=== PATIENT | male | born 1950 | race Caucasian/White ===

== ENCOUNTER 2019-02-21 16:09 | Inpatient (IN) ==
[2019-02-21] MEDS ORDERED: Piperacillin/Tazobactam 3.375 GM in Water for inj. (sterile) 20 ML 20 ML IVP ONE (16:18)
[2019-02-21] MEDS ORDERED: 0.9 % Sodium Chloride 1,000 ML IVC ONE (16:18)
[2019-02-21 16:48] LABS: Basophils # 0.1 K/mcL (0.0-0.2); Basophils % 0.4 %; Eosinophils % 0.1 %; Hematocrit 36.5 % (37.5-50.1); Hemoglobin 12.1 g/dL (12.9-16.9); Immature Granulocytes % 0.7 % (0-4); Lymphocytes # 0.9 K/mcL (0.6-4.6); Lymphocytes % 5.5 %; Mean Corpuscular HGB Conc 33.2 g/dL (31.6-35.5); Mean Corpuscular Hemoglobin 30.1 pg (28.0-33.3); Mean Corpuscular Volume 90.8 fL (83.0-100.0); Mean Platelet Volume 10.3 fL (9.4-12.4); Monocytes # 1.1 K/mcL (0.0-1.3); Monocytes % 6.3 %; Neutrophils # 14.7 K/mcL (1.6-8.9); Platelet Count 203 K/mcL (140-400); Red Blood Count 4.02 M/mcL (4.19-5.50); Red Cell Distribution Width 13.2 % (11.5-14.5)
[2019-02-21 16:55] LABS: INR 1.1; Prothrombin Time 12.8 Seconds (9.4-12.1)
[2019-02-21 16:58] LABS: Activated Partial Thrombo Time 27.4 Seconds (26.0-36.0)
[2019-02-21 17:26] LABS: Potassium 3.7 mEq/L (3.5-5.1)
[2019-02-21 17:27] LABS: Albumin 4.5 g/dL (3.5-5.7); Albumin/Globulin Ratio 1.1 (1.1-2.2); Bilirubin,Direct 0.1 mg/dL (0.0-0.2); Bilirubin,Indirect 0.4 mg/dL (0.0-1.2); Bilirubin,Total 0.5 mg/dL (0.3-1.0); Calcium 10.1 mg/dL (8.6-10.3); Globulin 4.2 g/dL (2.4-3.5); Magnesium 1.9 mg/dL (1.6-2.6); Phosphorous 2.6 mg/dL (2.7-4.5); Total Protein 8.7 g/dL (6.4-8.9); Troponin I 0.03 ng/mL (< 0.04)
[2019-02-21] MEDS ORDERED: *HR* FentaNYL (PF) 100 MCG/2 ML VIAL IVP ONE (18:26)
--- NOTE | 2019-02-21 18:48 | Emergency Department Note ---
Disposition Clinical Impression: Abdominal pain Qualifiers: Abdominal location: right lower quadrant Qualified Code(s): R10.31 - Right lower quadrant pain Acute appendicitis Qualifiers: Acute appendicitis type: unspecified acute appendicitis type Qualified Code(s): K35.80 - Unspecified acute appendicitis Disposition: Admitted As Inpatient Condition: Good Referrals: NONE,PCP [Primary Care Provider] - Forms: ED Satisfaction Letter, Work/School Release Time of Disposition: 19:01 Abdominal Pain HPI - General Chief Complaint: ED Abdominal Pain Stated Complaint: RUQ pain Time Seen by Provider: 02/21/19 16:17 Source: patient Mode of arrival: ambulatory Limitations: no limitations Nursing Notes Reviewed: Yes Vital Signs Reviewed: Yes - History of Present Illness HPI Narrative: Patient presents emergency room with complaint of abdominal pain that started at 24 hours ago. And feeling worse and worse over the last several days. No other symptoms or complaints. Patient just did not feel any better today and decided to come in the emergency room for evaluation. Pt Subjective Complaint: abdominal pain Onset (ago): day(s) Consistency: constant Location: RLQ Pain Severity: none Pain Scale: 1 Quality: cramping Radiation: none Migration to: no migration Improves with: nothing Worsens with: movement Associated symptoms: Reports: denies other symptoms Treatments prior to arrival: none - Related Data Allergies Allergy/AdvReac Type Severity Reaction Status Date / Time No Known Allergies Allergy Verified 02/21/19 18:30 All systems ED: reviewed and negative except as stated. Review of Systems: As Per HPI Constitutional: Reports: chills. Denies: fever ENT ED: Denies: congestion Cardiovascular: Denies: chest pain, palpitations, dyspnea on exertion, orthopnea Respiratory: Denies: cough, dyspnea, wheezes Gastrointestinal: Reports: abdominal pain. Denies: nausea, vomiting, diarrhea, constipation Genitourinary: Denies: urgency, dysuria, frequency Musculoskeletal: Denies: back pain, neck pain Integumentary: Denies: rash Neurological: Denies: headache Abdominal Pain PMH - Past Medical History Medical history: Reports: dialysis, renal disease Psychiatric history: Reports: no psych history - Social History Smoking status: Never smoker Alcohol use: Reports: none Drug use: Reports: none Physical Exam - General Limitations: no limitations General appearance: alert - Head Head exam: atraumatic, normocephalic, normal inspection - ENT ENT exam: normal exam, normal oropharynx, mucous membranes moist - Neck Neck exam: Present: normal inspection, full ROM, trachea midline. Absent: tenderness - Chest Chest inspection: Present: normal inspection, symmetric chest wall rise. Absent: tenderness - Respiratory Respiratory exam: Present: normal lung sounds bilaterally. Absent: respiratory distress, accessory muscle use - Cardiovascular Cardiovascular exam: Present: normal rhythm, tachycardia, normal heart sounds - Abdominal Exam Abdominal exam: Present: soft, tenderness, guarding, normal bowel sounds, heel tap sign, tenderness at McBurney's Point. Absent: distention, rebound, rigidity, Johnson's sign, Rovsing's sign - Extremities Exam Extremities exam: Present: normal inspection, full ROM, normal capillary refill. Absent: tenderness - Neurological Exam Neurological exam: Present: alert, oriented X3, CN II-XII intact, normal gait - Skin Skin exam: Present: warm, dry, intact, normal color Course Course Narrative: Patient seen and examined the time of arrival. See history of present illness. 5-year-old male presents emergency room for evaluation of abdominal pain. Patient is brought into the triage process and was noted to have elevated heart rate. He also felt like his had chills at home. He denied any chest pain or shortness of breath. He has not had any nausea or vomiting. He had lower abdominal discomfort and pain. He is currently in dialysis on every Saturday under the care of Dr. Roche. He has not had any falls trauma or injury. He is been taking all his home medications as they are prescr ibed. Head is atraumatic. Pupils are equal and reactive. Extracted muscles are intact. Oral mucosa is patent. Trachea is midline. Lungs are clear. Heart is regular but tachycardic. Abdomen is soft slightly distended with significant tenderness noted in the right lower quadrant. He does not have any diffuse peritoneal symptoms this time or rigidity. Bowel sounds are present. examination deferred at this time. Extremities otherwise normal with no signs of pitting edema or swelling. Patient is concerning for abdominal related etiologies including appendicitis or gallbladder related disease because the patient has right-sided pain that is isolated in that area. He has no specific history of renal stones or colic. Chest x-ray EKG CBC chemistry liver function testing and lipase along with blood cultures and lactic acid will be ordered. CT managing of the abdomen and urinalysis will also be collected. Disposition to be determined once full workup and treatment course are resulted. First dose of Zosyn will be given here covering for intra-abdominal pathology. Vital signs otherwise stable. Disposition pending the - Reevaluation(s) Reevaluation #1: CT imaging of the abdomen confirms what appears to be gallbladder wall thickeni ng and sludge along with acute appendicitis with possible perforation and phlegmon. Patient does have a significantly dilated bladder. No other issues at this time. The on-call acute care surgeon Dr. Garner and I reviewed the case. He agreed this is most likely phlegmon or require antibiotic regimen first called down the abdomen and repeat evaluation. Consult for his services placed. The on-call hospitalist Dr. Slaughter Time: 18:57 Vital Signs Temperature 98.6 F 02/21/19 16:13 Pulse Rate 125 02/21/19 16:13 Respiratory Rate 18 02/21/19 16:13 Blood Pressure 152/78 02/21/19 16:13 O2 Sat by Pulse Oximetry 97 02/21/19 16:13 Temperature 98.6 F 02/21/19 16:13 Pulse Rate 125 02/21/19 18:32 Respiratory Rate 20 02/21/19 18:32 Blood Pressure 166/92 02/21/19 18:32 O2 Sat by Pulse Oximetry 93 02/21/19 18:32 Oxygen Delivery Oxygen Delivery Room Air Abdominal Pain - MDM Narrative Medical decision making narrative: Acute appendicitis, abdominal pain, phlegmon - Medical Records Medical records reviewed: Yes I reviewed the patient's medical records. - Lab Data Lab results reviewed: Yes I reviewed the patient's lab results. Result diagrams: 02/21/19 16:27 02/21/19 16:27 Lab Results 02/21/19 02/21/19 02/21/19 Range/Units 16:27 16:27 16:27 WBC 16.9 H (4.3-11.1) K/mcL RBC 4.02 L (4.19-5.50) M/mcL Hgb 12.1 L (12.9-16.9) g/dL Hct 36.5 L (37.5-50.1) % MCV 90.8 (83.0-100.0) fL MCH 30.1 (28.0-33.3) pg MCHC 33.2 (31.6-35.5) g/dL RDW 13.2 (11.5-14.5) % Plt Count 203 (140-400) K/mcL MPV 10.3 (9.4-12.4) fL Immature Gran % 0.7 (0-4) % Seg Neutrophils % 87.0 % Lymphocytes % 5.5 % Monocytes % 6.3 % Eosinophils % 0.1 % Basophils % 0.4 % Neutrophils # 14.7 H (1.6-8.9) K/mcL Lymphocytes # 0.9 (0.6-4.6) K/mcL Monocytes # 1.1 (0.0-1.3) K/mcL Eosinophils # 0.0 (0.0-0.6) K/mcL Basophils # 0.1 (0.0-0.2) K/mcL PT 12.8 H (9.4-12.1) Seconds INR 1.1 APTT 27.4 (26.0-36.0) Seconds Sodium 134 L (136-145) mEq/L Potassium 3.7 (3.5-5.1) mEq/L Chloride 93 L (98-107) mEq/L Carbon Dioxide 29 (23-29) mEq/L BUN 33 H (8-23) mg/dL Creatinine 8.61 H (0.70-1.30) mg/dL Est GFR ( Amer) 7 L (> 60) Est GFR (Non-Af Amer) 6 L (> 60) BUN/Creatinine Ratio 4 L (6-26) Glucose 108 H (70-105) mg/dL Calculated Osmolality 286 (280-300) Lactic Acid (0.5-2.2) mmol/L Calcium 10.1 (8.6-10.3) mg/dL Phosphorus 2.6 L (2.7-4.5) mg/dL Magnesium 1.9 (1.6-2.6) mg/dL Total Bilirubin 0.5 (0.3-1.0) mg/dL Direct Bilirubin 0.1 (0.0-0.2) mg/dL Indirect Bilirubin 0.4 (0.0-1.2) mg/dL AST 15 (13-39) Units/L ALT 14 (7-52) Units/L Alkaline Phosphatase 88 (34-104) Units/L Troponin I 0.03 (< 0.04) ng/mL B-Natriuretic Peptide (Less than 100) pg/mL Serum Total Protein 8.7 (6.4-8.9) g/dL Albumin 4.5 (3.5-5.7) g/dL Globulin 4.2 H (2.4-3.5) g/dL Albumin/Globulin Ratio 1.1 (1.1-2.2) Lipase 21 (11-82) Units/L 02/21/19 02/21/19 Range/Units 16:27 16:35 WBC (4.3-11.1) K/mcL RBC (4.19-5.50) M/mcL Hgb (12.9-16.9) g/dL Hct (37.5-50.1) % MCV (83.0-100.0) fL MCH (28.0-33.3) pg MCHC (31.6-35.5) g/dL RDW (11.5-14.5) % Plt Count (140-400) K/mcL MPV (9.4-12.4) fL Immature Gran % (0-4) % Seg Neutrophils % % Lymphocytes % % Monocytes % % Eosinophils % % Basophils % % Neutrophils # (1.6-8.9) K/mcL Lymphocytes # (0.6-4.6) K/mcL Monocytes # (0.0-1.3) K/mcL Eosinophils # (0.0-0.6) K/mcL Basophils # (0.0-0.2) K/mcL PT (9.4-12.1) Seconds INR APTT (26.0-36.0) Seconds Sodium (136-145) mEq/L Potassium (3.5-5.1) mEq/L Chloride (98-107) mEq/L Carbon Dioxide (23-29) mEq/L BUN (8-23) mg/dL Creatinine (0.70-1.30) mg/dL Est GFR ( Amer) (> 60) Est GFR (Non-Af Amer) (> 60) BUN/Creatinine Ratio (6-26) Glucose (70-105) mg/dL Calculated Osmolality (280-300) Lactic Acid 1.2 (0.5-2.2) mmol/L Calcium (8.6-10.3) mg/dL Phosphorus (2.7-4.5) mg/dL Magnesium (1.6-2.6) mg/dL Total Bilirubin (0.3-1.0) mg/dL Direct Bilirubin (0.0-0.2) mg/dL Indirect Bilirubin (0.0-1.2) mg/dL AST (13-39) Units/L ALT (7-52) Units/L Alkaline Phosphatase (34-104) Units/L Troponin I (< 0.04) ng/mL B-Natriuretic Peptide 238 H (Less than 100) pg/mL Serum Total Protein (6.4-8.9) g/dL Albumin (3.5-5.7) g/dL Globulin (2.4-3.5) g/dL Albumin/Globulin Ratio (1.1-2.2) Lipase (11-82) Units/L - Radiology Data Radiology results reviewed: Yes I reviewed the patient's radiology results. CT imaging of the abdomen as well as chest x-ray reviewed. Ultrasound was also confirmed. Acute findings of appendicitis were noted on exam. Otherwise no other acute issue. - EKG Data EKG attestation: Yes I reviewed and interpreted this EKG. EKG results narrative: EKG shows sinus tachycardia. Heart rate of 131. VA interval 149. QRS duration of 90. QTC of 426. [place] appears to be leftward deviated at this time. Otherwise no other acute signs of ST segment elevation or abnormality. No acute signs of WPW or Brugada syndrome. Similar in comparison to previous EKG of 02/13/11
--- NOTE | 2019-02-21 19:27 | Internal Med History&Physical ---
<Peter Morris S - Last Filed: 02/21/19 21:51> Date of Encounter: 02/21/19 Time of Encounter: 20:32 Internal Medicine - H&P: HPI Chief complaint: abdominal pain Admitted From: Home Plans for Post Hospital Care: Home History of present illness: Mr. Mckeon is a 68 year old male with PMH of ESRD on HD MWF and hyperlipidemia. He states that on Saturday he woke up with periumbilical abdominal pain that then began to radiate towards the RUQ, rated as an 7/10. He had some associated nausea and vomiting and fevers/chills, although he didn't take his own temperature. He states that he hasn't really been feeling very hungry the last few days and when he does eat it is hard to keep anything down. He states that he has never had this pain before but knew this was in his appendix area. He states that he is otherwise compliant with hemodilaysis. He states that he gets HD MWF and that he was last dialyzed on Saturday yesterday. He denies chest pain/palpiltations. He states he has some SOB but it is around baseline, has some pain in his belly with deep breathing. He states that on the way over here, bumps in the road didn't particularly hurt his belly. He denies open wounds/sores, skin changes, or rashes. In the ER he was found to have acute appendicitis on CT scan. Acute care surgery was consulted. He meets SIRS criteria for the WBC and HR on admission with source of infxn as his appendix. He will be admitted for further treatment. Past Med Surg Social Fam HX - Past Medical History Medical history: dialysis, renal disease Psychiatric history: no psych history - Past Surgical History Additional surgical history: right arm fistula - Social History Smoking Status: Never smoker Smokeless Tobacco Status: No Alcohol use: none Drug use: none Internal Medicine - H&P: Meds Potassium Chloride PO TID 02/21/19 [History] Simvastatin PO HS 02/21/19 [History] Sodium Bicarbonate PO TID 02/21/19 [History] Allergy/AdvReac Type Severity Reaction Status Date / Time No Known Allergies Allergy Verified 02/21/19 18:30 All Systems PM: A 10-system review of systems was performed and is negative for pertinent findings except as documented above in the HPI. - Constitutional Constitutional: anorexia, chills, fever(s) - EENT Eyes: no blurry vision, no change in vision Ears: no tinnitus - Cardiovascular Cardiovascular ROS IM: no chest pain, no dyspnea, no dyspnea on exertion - Respiratory Respiratory: no cough, no dyspnea, no dyspnea on exertion, no pain on inspiration, no chest congestion, no excessive phlegm production - Gastrointestinal Gastrointestinal: abdominal pain, nausea, vomiting, no diarrhea - Genitourinary Genitourinary ROS male: difficulty urinating, urinary incontinence, no dysuria, no hematuria - Musculoskeletal Musculoskeletal ROS IM: back pain, no numbness, no tingling - Integumentary Integumentary IM: no unusual bruising - Neurological Neurological ROS: weakness, no numbness, no tingling - Psychiatric Psychiatric: no anxiety, no depression - Endocrine Endocrine IM: no fatigue - Hematologic/Lymphatic Hematologic/Lymphatic: no easy bleeding, no easy bruising - Constitutional Vitals: Temp Pulse Resp BP Pulse Ox 98.6 F 125 20 166/92 93 02/21/19 16:13 02/21/19 18:32 02/21/19 18:32 02/21/19 18:32 02/21/19 18:32 General appearance: Present: cooperative, mild distress, A&O X 3, answers questions appropriately Exam: general - aox3, mild distress, pleasant and cooperative heent - ncat, mmm, no scleral icterus neck - no jvd, trachea midline cardio - tacycardia, s1s2, cta no mrg lungs - diminished breath sounds but clear; no respiratory distress, no wheeze/rhonchi/rales abd - soft, no peritoneal signs, TTP in RLQ, no involuntary/voluntary guarding, (+) psoas sign extremities - moves all extremities equally, strength intact neuro - follows command, cn2-12 grossly intact, sensation intact skin - warm, dry, intact psych - appropriate mood/affect Internal Med - H&P Results - Labs CBC & Chem 7: 02/21/19 16:27 02/21/19 16:27 Labs: Short CBC 02/21/19 Range/Units 16:27 WBC 16.9 H (4.3-11.1) K/mcL Hgb 12.1 L (12.9-16.9) g/dL Hct 36.5 L (37.5-50.1) % Plt Count 203 (140-400) K/mcL Neutrophils # 14.7 H (1.6-8.9) K/mcL BMP 02/21/19 16:27 Sodium 134 L Potassium 3.7 Chloride 93 L Carbon Dioxide 29 BUN 33 H Creatinine 8.61 H Glucose 108 H Calcium 10.1 Cardiac Enzymes 02/21/19 Range/Units 16:27 Troponin I 0.03 (< 0.04) ng/mL Liver Function 02/21/19 Range/Units 16:27 Total Bilirubin 0.5 (0.3-1.0) mg/dL Direct Bilirubin 0.1 (0.0-0.2) mg/dL AST 15 (13-39) Units/L ALT 14 (7-52) Units/L Alkaline Phosphatase 88 (34-104) Units/L Albumin 4.5 (3.5-5.7) g/dL - Impressions ITS Impressions Chest X-Ray 02/21/19 16:18 IMPRESSION: Low lung volumes with bibasilar atelectasis. D/ / Ami Castano MD / Ami Castano MD Interpreting Provider: Ami Castano MD Abdomen/Pelvis CT 02/21/19 16:19 IMPRESSION: 1. Acute appendicitis. A single bubble of extraluminal gas adjacent to the appendix suggest perforation, although there is no definite abscess 2. Progressive severe bilateral hydroureteronephrosis with progressive bilateral renal atrophy. Possible 1.6 cm left renal mass versus remnant nodule renal tissue. Contrast exam may be necessary for clarification 3. Urinary bladder distention with wall thickening compatible with chronic bladder outlet obstruction or chronic bladder dysfunction 4. Colonic diverticulosis D/ / All Lopez MD / All Lopez MD Interpreting Provider: All Lopez MD Gallbladder Ultrasound 02/21/19 16:19 IMPRESSION: Mild gallbladder wall thickening with a small amount of gallbladder sludge. No additional signs to suggest acute cholecystitis. Severe right-sided hydronephrosis. D/ / 02/21/2019 17:19:35 Roldan Osman MD / polina Interpreting Provider: Roldan Osman MD - Assessment and Plan (1) Sepsis Current Visit: Yes Status: Acute Assessment and plan: Sepsis likely secondary to acute appendicitis, has had periumbilical/RLQ pain since Saturday - on admission meets SIRS criteria for HR, WBC, t max 101.8 - pt remains w/o peritoneal signs EKG without T wave inversion or ischemia XR chest showed no acute cardiopulmonary process CT abd/pelvis showed acute appendicitis. A single bubble of extraluminal gas adjacent to the appendix suggest perforation, although there is no definite abscess Plan: - 100cc/hr 0.9% NS - blood cx pending - UA pending - telemetry monitoring - zofran prn nausea - acetaminophen prn fever - pain control - cbc/bmp with AM labs - zosyn day 1, renally dosed creatinine clearance 10 - acute surgery consulted, Dr Garner contacted by ER physician - FEN: NPO now - dispo: surgery recommendations HD while in the hospital MWF Qualifiers: Sepsis type: sepsis due to unspecified organism Qualified Code(s): A41.9 - Sepsis, unspecified organism (2) ESRD (end stage renal disease) Current Visit: Yes Status: Acute Assessment and plan: ESRD on HD MWF. Makes own urine, although incontienent. Right arm fistula. Nephrology consulted for HD while in the hospital. Strict I&O. Creatinine 8.61 on admission, no baseline available and last creatinine reported in [facility] from 2014. (3) DVT prophylaxis Current Visit: Yes Status: Acute Assessment and plan: scd (4) Overweight Current Visit: Yes Status: Acute Assessment and plan: BMI 27.9, counseled. (5) Incontinence of bowel Current Visit: No Status: Chronic Assessment and plan: Wears adult diapers, hickey cath while in hospital. Qualifiers: Fecal incontinence type: unspecified Qualified Code(s): R15.9 - Full incontinence of feces (6) Hydroureteronephrosis Current Visit: Yes Status: Acute Assessment and plan: CT abd/pelvis from admission showed Progressive severe bilateral hydroureteronephrosis with progressive bilateral renal atrophy. Possible 1.6 cm left renal mass versus remnant nodule renal tissue. Radiology recommended contrast exam for clarification; can consider timing with dialysis (7) Bladder outlet obstruction Current Visit: Yes Status: Acute Assessment and plan: Noted on CT. Urinary bladder distention with wall thickening compatible with chronic bladder outlet obstruction or chronic bladder dysfunction (8) Abdominal pain Current Visit: Yes Status: Acute Assessment and plan: Secondary to appendicitis. Qualifiers: Abdominal location: right lower quadrant Qualified Code(s): R10.31 - Right lower quadrant pain (9) Acute appendicitis Current Visit: Yes Status: Acute Assessment and plan: See above for plan. Surgery consulted. Qualifiers: Acute appendicitis type: unspecified acute appendicitis type Qualified Code(s): K35.80 - Unspecified acute appendicitis (10) Leukocytosis Current Visit: Yes Status: Acute Assessment and plan: WBC 16.9 on admission, likely 2/2 sepsis from appendicitis. Will continue to follow. Qualifiers: Leukocytosis type: unspecified Qualified Code(s): D72.829 - Elevated white blood cell count, unspecified (11) Hypertension Current Visit: Yes Status: Acute Assessment and plan: BP systolic 160's on admission. Lopressor q6hr prn HTN SBP>160. ECHO pending. Qualifiers: Hypertension type: essential hypertension Qualified Code(s): I10 - Essential (primary) hypertension - Time Spent With Patient Total time spent is greater than 50% in coordination of care (as documented) at patient's floor/unit and/or counseling patient: 25 - 35 minutes <Johnny Hui - Last Filed: 02/21/19 23:48> Date of Encounter: 02/21/19 Internal Medicine - H&P: HPI History of present illness: Mr. Mckeon is a 68 year old male All Systems PM: A 10-system review of systems was performed and is negative for pertinent findings except as documented above in the HPI. - Constitutional Vitals: Temp Pulse Resp BP Pulse Ox 101.8 F H 127 16 148/77 94 02/21/19 21:03 02/21/19 21:03 02/21/19 21:03 02/21/19 21:03 02/21/19 21:03 Internal Med - H&P Results - Labs CBC & Chem 7: 02/21/19 16:27 02/21/19 16:27 Labs: Short CBC 02/21/19 Range/Units 16:27 WBC 16.9 H (4.3-11.1) K/mcL Hgb 12.1 L (12.9-16.9) g/dL Hct 36.5 L (37.5-50.1) % Plt Count 203 (140-400) K/mcL Neutrophils # 14.7 H (1.6-8.9) K/mcL BMP 02/21/19 16:27 Sodium 134 L Potassium 3.7 Chloride 93 L Carbon Dioxide 29 BUN 33 H Creatinine 8.61 H Glucose 108 H Calcium 10.1 Cardiac Enzymes 02/21/19 Range/Units 16:27 Troponin I 0.03 (< 0.04) ng/mL Liver Function 02/21/19 Range/Units 16:27 Total Bilirubin 0.5 (0.3-1.0) mg/dL Direct Bilirubin 0.1 (0.0-0.2) mg/dL AST 15 (13-39) Units/L ALT 14 (7-52) Units/L Alkaline Phosphatase 88 (34-104) Units/L Albumin 4.5 (3.5-5.7) g/dL - Impressions ITS Impressions Chest X-Ray 02/21/19 16:18 IMPRESSION: Low lung volumes with bibasilar atelectasis. D/ / Ami Castano MD / Ami Castano MD Interpreting Provider: Ami Castano MD Abdomen/Pelvis CT 02/21/19 16:19 IMPRESSION: 1. Acute appendicitis. A single bubble of extraluminal gas adjacent to the appendix suggest perforation, although there is no definite abscess 2. Progressive severe bilateral hydroureteronephrosis with progressive bilateral renal atrophy. Possible 1.6 cm left renal mass versus remnant nodule renal tissue. Contrast exam may be necessary for clarification 3. Urinary bladder distention with wall thickening compatible with chronic bladder outlet obstruction or chronic bladder dysfunction 4. Colonic diverticulosis D/ / All Lopez MD / All Lopez MD Interpreting Provider: All Lopez MD Gallbladder Ultrasound 02/21/19 16:19 IMPRESSION: Mild gallbladder wall thickening with a small amount of gallbladder sludge. No additional signs to suggest acute cholecystitis. Severe right-sided hydronephrosis. D/ / 02/21/2019 17:19:35 Roldan Osman MD / polina Interpreting Provider: Roldan Osman MD - Time Spent With Patient Total time spent is greater than 50% in coordination of care (as documented) at patient's floor/unit and/or counseling patient: - Attending Attestation I saw and evaluated the patient. I reviewed the residents note, performed my own physical examination and agree with findings and plan as documented in the residents note. Patient seen and examined on 02/21/19. Patient presented to the ER with abdominal pain found to have appendicitis/phlegmon. He was started on Zosyn in the emergency room. Patient also has significant bladder distention. Upon arrival to the floor patient was bladder scanned and he had 1430 mL detected. Patient is end-stage renal disease and notes that he normally only has very little urine output. Attempt for fully catheter was made in the ER but was unsuccessful. We will attempt to place a Hickey catheter now. If catheter placement unsuccessful may have to have urology consult. Dr. Garner of general surgery met with the patient. Plans to treat with IV antibiotics for now for the next 48 hours. Keep patient nothing by mouth. After trial of antibiotics if not improving may consider proceeding with surgery. Surgery team will continue to follow with the patient. We will continue IV antibiotics and keep patient nothing by mouth. Patient resting comfortably in the hospital bed when I arrived to his room, sleeping. He does have pain with palpation over the right lower quadrant.
[2019-02-21] MEDS ORDERED: Naloxone 0.4 MG/ML INJ IVP PRN (20:06)
[2019-02-21] MEDS ORDERED: Ondansetron 4 MG/2 ML VIAL IVP PRN (20:06)
[2019-02-21] MEDS ORDERED: *HR* OxyCODONE/APAP 5/325 TABLET PO PRN (20:09)
[2019-02-21] MEDS ORDERED: *HR* Metoprolol 5 MG/5 ML VIAL IVP PRN (20:34)
[2019-02-21] MEDS ORDERED: Acetaminophen 325 MG TABLET PO PRN (21:33)
--- NOTE | 2019-02-21 23:16 | AcuteCare Surgery Consult Note ---
Date of Encounter: 02/21/19 Time of Encounter: 23:16 Assessment and Plan (1) Acute appendicitis Current Visit: Yes Status: Acute I explained to the patient that the CT scan results shows evidence of a phlegmon which makes surgical resection for appendicitis challenging. There is a higher likelihood of needing to do a right colectomy with the above-mentioned findings and I think giving his overall comorbidities that it would be most appropriate first a treat him with IV antibiotics and follow closely. It is possible that we can combat evidence of inflammation/infection process over the next 48 hours. We will likely repeat the CT scan within the next 48-72 hours to determine if there is any progression, evolution, or worsening of the phlegmon process. Will follow with you. Qualifiers: Acute appendicitis type: with localized peritonitis Appendicitis gangrene presence: without gangrene Appendicitis perforation presence: without perforation Appendicitis abscess presence: without abscess Qualified Code(s): K35.30 - Acute appendicitis with localized peritonitis, without perforation or gangrene History of Present Illness Consult date: 02/21/19 Reason for consult: other (Right lower abdominal pain.) Requesting physician: Pascual Gomez History of present illness: The patient is a 68-year-old male with a past medical history significant for chronic renal failure on dialysis who states that this past Saturday he started to have some right lower quadrant abdominal pain symptoms. He denies any vomiting but admits to nausea but because of the worsening pain symptoms that was sharp but intermittent in nature he presented himself to [facility] for further evaluation. He states that he did have a fever at home. He also states that there was pain with movement particularly flexion or bending at the hip. He denies any true symptoms of diarrhea constipation and denies any rectal bleeding symptoms. Past Med Surg Social Fam HX - Past Medical History Medical history: dialysis, renal disease Psychiatric history: no psych history - Past Surgical History Additional surgical history: right arm fistula - Social History Smoking Status: Never smoker Smokeless Tobacco Status: No Alcohol use: none Drug use: none Medications and Allergies Potassium Chloride PO TID 02/21/19 [History] Simvastatin PO HS 02/21/19 [History] Sodium Bicarbonate PO TID 02/21/19 [History] Allergy/AdvReac Type Severity Reaction Status Date / Time No Known Allergies Allergy Verified 02/21/19 18:30 Review of Systems All systems PM: reviewed and no additional remarkable complaints except as stated All systems PM: The remainder of the systems were reviewed and are negative General Surgery Exam Initial Vital Signs Temp Pulse Resp BP Pulse Ox 98.6 F 125 18 152/78 97 02/21/19 16:13 02/21/19 16:13 02/21/19 16:13 02/21/19 16:13 02/21/19 16:13 - Eyes PERRL, normal ocular movement - Respiratory normal expansion, normal respiratory effort (Decrease prednisone faces.) - Cardiovascular Cardiovascular exam: Present: RRR, no murmurs/rubs/gallops - Abdomen Abdomen general surgery: Present: bowel sounds present, soft, tender (Pain to palpation in the right lower quadrant) - Neurologic Present: CN 2-12 grossly intact - Musculoskeletal Present: other (No clubbing or cyanosis) Exam Initial Vital Signs Temp Pulse Resp BP Pulse Ox 98.6 F 125 18 152/78 97 02/21/19 16:13 02/21/19 16:13 02/21/19 16:13 02/21/19 16:13 02/21/19 16:13 Results - Labs 02/22/19 04:36 02/22/19 04:36 Abnormal lab results WBC 16.9 K/mcL (4.3-11.1) H 02/21/19 16:27 RBC 4.02 M/mcL (4.19-5.50) L 02/21/19 16:27 Hgb 12.1 g/dL (12.9-16.9) L 02/21/19 16:27 Hct 36.5 % (37.5-50.1) L 02/21/19 16:27 14.7 K/mcL (1.6-8.9) H 02/21/19 16:27 PT 12.8 Seconds (9.4-12.1) H 02/21/19 16:27 Sodium 134 mEq/L (136-145) L 02/21/19 16:27 Chloride 93 mEq/L (98-107) L 02/21/19 16:27 BUN 33 mg/dL (8-23) H 02/21/19 16:27 8.61 mg/dL (0.70-1.30) H 02/21/19 16:27 Est GFR ( Amer) 7 (> 60) L 02/21/19 16:27 Est GFR (Non-Af Amer) 6 (> 60) L 02/21/19 16:27 4 (6-26) L 02/21/19 16:27 Glucose 108 mg/dL (70-105) H 02/21/19 16:27 Phosphorus 2.6 mg/dL (2.7-4.5) L 02/21/19 16:27 B-Natriuretic Peptide 238 pg/mL (Less than 100) H 02/21/19 16:27 4.2 g/dL (2.4-3.5) H 02/21/19 16:27 Diabetes panel 02/21/19 Range/Units 16:27 Sodium 134 L (136-145) mEq/L Potassium 3.7 (3.5-5.1) mEq/L Chloride 93 L (98-107) mEq/L Carbon Dioxide 29 (23-29) mEq/L BUN 33 H (8-23) mg/dL Creatinine 8.61 H (0.70-1.30) mg/dL Glucose 108 H (70-105) mg/dL Calcium 10.1 (8.6-10.3) mg/dL AST 15 (13-39) Units/L ALT 14 (7-52) Units/L Alkaline Phosphatase 88 (34-104) Units/L Albumin 4.5 (3.5-5.7) g/dL Calcium panel 02/21/19 Range/Units 16:27 Calcium 10.1 (8.6-10.3) mg/dL Phosphorus 2.6 L (2.7-4.5) mg/dL Albumin 4.5 (3.5-5.7) g/dL Pituitary panel 02/21/19 Range/Units 16:27 Sodium 134 L (136-145) mEq/L Potassium 3.7 (3.5-5.1) mEq/L Chloride 93 L (98-107) mEq/L Carbon Dioxide 29 (23-29) mEq/L BUN 33 H (8-23) mg/dL Creatinine 8.61 H (0.70-1.30) mg/dL Glucose 108 H (70-105) mg/dL Calcium 10.1 (8.6-10.3) mg/dL Adrenal panel 02/21/19 Range/Units 16:27 Sodium 134 L (136-145) mEq/L Potassium 3.7 (3.5-5.1) mEq/L Chloride 93 L (98-107) mEq/L Carbon Dioxide 29 (23-29) mEq/L BUN 33 H (8-23) mg/dL Creatinine 8.61 H (0.70-1.30) mg/dL Glucose 108 H (70-105) mg/dL Calcium 10.1 (8.6-10.3) mg/dL Total Bilirubin 0.5 (0.3-1.0) mg/dL AST 15 (13-39) Units/L ALT 14 (7-52) Units/L Alkaline Phosphatase 88 (34-104) Units/L Albumin 4.5 (3.5-5.7) g/dL All other labs normal. - Imaging CT scan - abdomen: report reviewed, image reviewed (I personally reviewed the CT scan images and report which shows inflammation of the appendix, cecum, and terminal ileum. This fat stranding and increased edema in the area concerning for phlegmon.) Consult Discharge Plan - Plan Referrals: NONE,PCP [Primary Care Provider] -
[2019-02-21] MEDS ORDERED: OXYCODONE Oral CONC 10 MG/0.5 ML ORAL.SYG SL PRN (23:40)
[2019-02-22 05:05] LABS: Hematocrit 34.8 % (37.5-50.1); Hemoglobin 11.2 g/dL (12.9-16.9); Mean Corpuscular HGB Conc 32.2 g/dL (31.6-35.5); Mean Corpuscular Hemoglobin 29.6 pg (28.0-33.3); Mean Corpuscular Volume 92.1 fL (83.0-100.0); Mean Platelet Volume 10.3 fL (9.4-12.4); Platelet Count 142 K/mcL (140-400); Red Blood Count 3.78 M/mcL (4.19-5.50); Red Cell Distribution Width 13.3 % (11.5-14.5)
[2019-02-22] MEDS: OXYCODONE Oral CONC 10 MG/0.5 ML ORAL.SYG SL PRN ×4 (05:13→18:40)
[2019-02-22 05:23] LABS: Potassium 4.4 mEq/L (3.5-5.1)
[2019-02-22] MEDS: Piperacillin/Tazobactam 3.375 GM in 0.9 % Sodium Chloride Mini Bag 100 ML IVPB SCH ×2 (05:40→18:42)
[2019-02-22] MEDS ORDERED: *HR* Dextrose 50 % in Water (Syg) 50 ML SYRINGE IVP PRN (06:11)
[2019-02-22] MEDS ORDERED: Dextrose Gel 15 GM/37.5 ML TUBE PO PRN ×2 (06:11)
[2019-02-22] MEDS: 0.9 % Sodium Chloride 1,000 ML IVC SCH ×2 (06:47→12:37)
--- NOTE | 2019-02-22 10:39 | Urology - Consult Note ---
Date of Encounter: 02/22/19 Time of Encounter: 10:37 - Assessment and Plan (1) Urinary retention Current Visit: Yes Status: Acute Assessment and plan: 68-year-old man with a history of urinary retention secondary to severe urethral stricture. I was not able to place a Aguilar catheter per urethra. I recommended proceeding with suprapubic tube placement. We reviewed the risks of the procedure which include but are not limited to bleeding, infection, injury or structures, need for further procedures, bowel injury, and discomfort. He was willing to proceed. I was able to place a suprapubic tube today. We will leave this to drainage. I have informed General surgery regarding these plans. We may need to upsize his suprapubic tube to allow for placement of a standard Aguilar catheter through the SP tract. I answered all his questions. Urology will follow along. (2) Urethral stricture Current Visit: Yes Status: Acute Qualifiers: Urethral stricture sex-location: male urethra-bulbous Qualified Code(s): N35.812 - Other urethral bulbous stricture, male (3) Hydroureteronephrosis Current Visit: Yes Status: Acute Urology CN:HPI Consult date: 02/22/19 Reason for consult Urology: Other (urinary retention, renal failure) Requesting physician: Johnny Hui History of present illness: 68-year-old man was admitted for right lower quadrant pain. In workup he was noted to have inflammation in his right colon, terminal ileum, and appendix. He has been on antibiotics. He has a history of severe urethral stricture disease. He dribbles some urine into a diaper. He has renal failure and is on dialysis. His CT scan showed a widely distended bladder with bilateral hydroureteronephrosis. In 2010 he had an open cystotomy with antegrade urethral dilation and catheter placement. Eventually his suprapubic tube was removed. He reports some right lower quadrant and suprapubic pain. The pain as a dull to sharp ache. Pain medication has helped the pain. The pain has been going on for a few days. Past Med Surg Social Fam HX - Past Medical History Medical history: dialysis, renal disease Psychiatric history: no psych history - Past Surgical History Additional surgical history: right arm fistula - Social History Smoking Status: Never smoker Smokeless Tobacco Status: No Alcohol use: none Drug use: none - Family History Father Hx Family Genitourinary Disorders: No (No family history of prostate cancer) Medications and Allergies Potassium Chloride PO TID 02/21/19 [History] Simvastatin PO HS 02/21/19 [History] Sodium Bicarbonate PO TID 02/21/19 [History] Allergy/AdvReac Type Severity Reaction Status Date / Time No Known Allergies Allergy Verified 02/21/19 18:30 Review of Systems - Constitutional no chills, no fever(s) - EENT Nose, mouth and throat: no dizziness - Cardiovascular no chest pain - Respiratory no dyspnea - Gastrointestinal abdominal pain, no nausea, no vomiting - Genitourinary difficulty urinating, no flank pain, no hematuria - Musculoskeletal no back pain - Integumentary no erythema, no rash - Neurological no weakness - Psychiatric no suicidal ideation - Hematologic/Lymphatic no easy bleeding - Allergic/Immunologic no wheezing Exam Initial Vital Signs Temp Pulse Resp BP Pulse Ox 98.6 F 125 18 152/78 97 02/21/19 16:13 02/21/19 16:13 02/21/19 16:13 02/21/19 16:13 02/21/19 16:13 - General physical appearance Present: well developed, well nourished, no distress - Eyes Absent: icteric - ENT Present: normal nares - Neck Present: trachea midline - Respiratory Present: normal respiratory effort - Cardiovascular Cardiovascular exam IM: RRR - Abdomen Abdomen: Present: tender, distended, suprapubic tenderness - Genitourinary normal penis with no external lesions, testicles present, testicles non-tender - Integumentary Present: no rash - Neurologic Present: normal coordination - Musculoskeletal Present: other (grossly normal) Urology Results - Labs 02/22/19 04:36 02/22/19 04:36 Abnormal lab results WBC 16.5 K/mcL (4.3-11.1) H 02/22/19 04:36 RBC 3.78 M/mcL (4.19-5.50) L 02/22/19 04:36 Hgb 11.2 g/dL (12.9-16.9) L 02/22/19 04:36 Hct 34.8 % (37.5-50.1) L 02/22/19 04:36 14.7 K/mcL (1.6-8.9) H 02/21/19 16:27 PT 12.8 Seconds (9.4-12.1) H 02/21/19 16:27 Sodium 134 mEq/L (136-145) L 02/21/19 16:27 Chloride 94 mEq/L (98-107) L 02/22/19 04:36 BUN 42 mg/dL (8-23) H 02/22/19 04:36 9.96 mg/dL (0.70-1.30) H 02/22/19 04:36 Est GFR ( Amer) 6 (> 60) L 02/22/19 04:36 Est GFR (Non-Af Amer) 5 (> 60) L 02/22/19 04:36 4 (6-26) L 02/22/19 04:36 Glucose 108 mg/dL (70-105) H 02/21/19 16:27 POC Glucose 102 mg/dL (70-99) H 02/21/19 23:50 Phosphorus 2.6 mg/dL (2.7-4.5) L 02/21/19 16:27 B-Natriuretic Peptide 238 pg/mL (Less than 100) H 02/21/19 16:27 4.2 g/dL (2.4-3.5) H 02/21/19 16:27 Diabetes panel 02/21/19 02/22/19 Range/Units 16:27 04:36 Sodium 134 L 137 (136-145) mEq/L Potassium 3.7 4.4 (3.5-5.1) mEq/L Chloride 93 L 94 L (98-107) mEq/L Carbon Dioxide 29 27 (23-29) mEq/L BUN 33 H 42 H (8-23) mg/dL Creatinine 8.61 H 9.96 H (0.70-1.30) mg/dL Glucose 108 H 97 (70-105) mg/dL Calcium 10.1 10.0 (8.6-10.3) mg/dL AST 15 (13-39) Units/L ALT 14 (7-52) Units/L Alkaline Phosphatase 88 (34-104) Units/L Albumin 4.5 (3.5-5.7) g/dL Calcium panel 02/21/19 02/22/19 Range/Units 16:27 04:36 Calcium 10.1 10.0 (8.6-10.3) mg/dL Phosphorus 2.6 L (2.7-4.5) mg/dL Albumin 4.5 (3.5-5.7) g/dL Pituitary panel 02/21/19 02/22/19 Range/Units 16:27 04:36 Sodium 134 L 137 (136-145) mEq/L Potassium 3.7 4.4 (3.5-5.1) mEq/L Chloride 93 L 94 L (98-107) mEq/L Carbon Dioxide 29 27 (23-29) mEq/L BUN 33 H 42 H (8-23) mg/dL Creatinine 8.61 H 9.96 H (0.70-1.30) mg/dL Glucose 108 H 97 (70-105) mg/dL Calcium 10.1 10.0 (8.6-10.3) mg/dL Adrenal panel 02/21/19 02/22/19 Range/Units 16:27 04:36 Sodium 134 L 137 (136-145) mEq/L Potassium 3.7 4.4 (3.5-5.1) mEq/L Chloride 93 L 94 L (98-107) mEq/L Carbon Dioxide 29 27 (23-29) mEq/L BUN 33 H 42 H (8-23) mg/dL Creatinine 8.61 H 9.96 H (0.70-1.30) mg/dL Glucose 108 H 97 (70-105) mg/dL Calcium 10.1 10.0 (8.6-10.3) mg/dL Total Bilirubin 0.5 (0.3-1.0) mg/dL AST 15 (13-39) Units/L ALT 14 (7-52) Units/L Alkaline Phosphatase 88 (34-104) Units/L Albumin 4.5 (3.5-5.7) g/dL All other labs normal. - Imaging CT scan - abdomen: report reviewed, image reviewed CT scan - pelvis: report reviewed, image reviewed Procedures:Urology - Suprapubic Catheter Initial Additional comments: We obtained informed consent regarding the procedure. Initially I attempted to place a Aguilar catheter. His penis was prepped and draped in usual sterile fashion. A zip wire was placed on the urethra. Some resistance was met. I had difficulty telling if that wire had made into the bladder. I attempted to place a 16-M[place] Aguilar catheter with a wire, but given the significant resistance the catheter did not go into the bladder. I was concerned that the wire was not completely in the bladder. At that point, I felt it would be best to place a suprapubic tube given his previous urethral and bladder surgery. His suprapubic abdomen was prepped and draped in usual sterile fashion. Local anesthetic was infiltrated on the skin. A small neck was placed at the area of the previous suprapubic tube location. The [place] SP tube was placed into the bladder. Clear urine returned. The needle was removed and the catheter was inserted to the level of the skin. The flange was sutured to the skin 3 using 2-0 nylon suture. The catheter was left to dependent drainage. He tolerated the procedure well. Consult Discharge Plan - Plan Referrals: NONE,PCP [Primary Care Provider] -
--- NOTE | 2019-02-22 10:58 | AcuteCareSurgery Progress Note ---
<Faith Nevarez N - Last Filed: 02/22/19 14:05> Date of Encounter: 02/22/19 Time of Encounter: 10:54 - Assessment and Plan (1) Acute appendicitis Current Visit: Yes Status: Acute 68-year-old male with past history significant for chronic renal failure on dialysis admitted to the hospital with CT scan findings concerning for acute appendicitis and phlegmon -Continue IV antibiotics -Repeat CT scan in 1-2 days for reevaluation -Continue IV fluids and maintain NPO, okay for ice chips one cup every 8 hours Qualifiers: Acute appendicitis type: unspecified acute appendicitis type Qualified Code(s): K35.80 - Unspecified acute appendicitis Subjective Narrative: Patient seen and examined at bedside this morning. He has pain in the right lower quadrant with guarding and rigidity. He also has suprapubic abdominal pain and distention from his urinary retention. Denies any nausea or vomiting at time. Leukocytosis stable since admission at 16.5. Borderline tachycardic otherwise hemodynamically stable. Objective Vital Signs - Last 8 Hours Temp Pulse Resp BP Pulse Ox 02/22/19 09:25 94 02/22/19 07:25 99.4 F 101 16 135/78 94 02/22/19 03:02 97.6 F 100 14 146/77 99 Intake and Output 02/21/19 02/22/19 02/22/19 23:59 07:59 15:59 Intake Total 1020 / 1020 0 / 100 100 / 100 Output Total 0 / 0 0 / 0 Balance 1020 / 1020 0 / 100 100 / 100 Intake: IV Fluids 1020 / 1020 100 / 100 0.9 % Sodium Chloride 1,000 ML 1000 / 1000 @ 999 mls/hr IVC .Q1H1M ONE Rx# :[id number] Zosyn 3.375 GM In Water for inj 20 / 20 . (sterile) 20 ML @ 400 mls/hr IVP ONCE ONE Rx#:[id number] Zosyn 3.375 GM In 0.9 % Sodium 100 / 100 Chloride (Mini-Bag +) 100 ML @ 25 mls/hr IVPB Q12H [facility] Rx#: [id number] Oral 0 / 0 0 / 0 Output: Urine 0 / 0 0 / 0 Other: # Voids 1 # Bowel Movements 0 Weight 87.8 kg 87.8 kg Blood Glucose* 102 77 Patient Weight 02/22/19 23:59 Weight 87.8 kg - General physical appearance well developed, well nourished - Eyes PERRL, normal ocular movement - ENT normal pinna, normal nares - Neck Neck exam: trachea midline, no venous distension - Respiratory normal expansion, normal respiratory effort - Cardiovascular Cardiovascular exam: Present: RRR - Abdomen Abdomen: Present: tender, guarding, rigid Abdominal Tenderness: RLQ - Labs 02/22/19 04:36 02/22/19 04:36 Diabetes panel 02/21/19 02/22/19 Range/Units 16:27 04:36 Sodium 134 L 137 (136-145) mEq/L Potassium 3.7 4.4 (3.5-5.1) mEq/L Chloride 93 L 94 L (98-107) mEq/L Carbon Dioxide 29 27 (23-29) mEq/L BUN 33 H 42 H (8-23) mg/dL Creatinine 8.61 H 9.96 H (0.70-1.30) mg/dL Glucose 108 H 97 (70-105) mg/dL Calcium 10.1 10.0 (8.6-10.3) mg/dL AST 15 (13-39) Units/L ALT 14 (7-52) Units/L Alkaline Phosphatase 88 (34-104) Units/L Albumin 4.5 (3.5-5.7) g/dL Calcium panel 02/21/19 02/22/19 Range/Units 16:27 04:36 Calcium 10.1 10.0 (8.6-10.3) mg/dL Phosphorus 2.6 L (2.7-4.5) mg/dL Albumin 4.5 (3.5-5.7) g/dL Pituitary panel 02/21/19 02/22/19 Range/Units 16:27 04:36 Sodium 134 L 137 (136-145) mEq/L Potassium 3.7 4.4 (3.5-5.1) mEq/L Chloride 93 L 94 L (98-107) mEq/L Carbon Dioxide 29 27 (23-29) mEq/L BUN 33 H 42 H (8-23) mg/dL Creatinine 8.61 H 9.96 H (0.70-1.30) mg/dL Glucose 108 H 97 (70-105) mg/dL Calcium 10.1 10.0 (8.6-10.3) mg/dL Adrenal panel 02/21/19 02/22/19 Range/Units 16:27 04:36 Sodium 134 L 137 (136-145) mEq/L Potassium 3.7 4.4 (3.5-5.1) mEq/L Chloride 93 L 94 L (98-107) mEq/L Carbon Dioxide 29 27 (23-29) mEq/L BUN 33 H 42 H (8-23) mg/dL Creatinine 8.61 H 9.96 H (0.70-1.30) mg/dL Glucose 108 H 97 (70-105) mg/dL Calcium 10.1 10.0 (8.6-10.3) mg/dL Total Bilirubin 0.5 (0.3-1.0) mg/dL AST 15 (13-39) Units/L ALT 14 (7-52) Units/L Alkaline Phosphatase 88 (34-104) Units/L Albumin 4.5 (3.5-5.7) g/dL Consult Discharge Plan - Plan Referrals: NONE,PCP [Primary Care Provider] - <Behzad Garner - Last Filed: 02/22/19 16:25> Date of Encounter: 02/22/19 - Assessment and Plan (1) Acute appendicitis Current Visit: Yes Status: Acute Qualifiers: Acute appendicitis type: with localized peritonitis Appendicitis gangrene presence: without gangrene Appendicitis perforation presence: without perforation Appendicitis abscess presence: without abscess Qualified Code(s): K35.30 - Acute appendicitis with localized peritonitis, without perforation or gangrene Objective Vital Signs - Last 8 Hours Temp Pulse Resp BP Pulse Ox 02/22/19 15:41 97.4 F L 96 16 133/75 95 02/22/19 12:51 98.3 F 103 16 147/80 97 02/22/19 09:25 94 Intake and Output 02/22/19 02/22/19 02/22/19 07:59 15:59 23:59 Intake Total 0 / 100 100 / 100 Output Total 0 / 2900 2900 / 2900 Balance 0 / -2800 -2800 / -2800 Intake: IV Fluids 100 / 100 Zosyn 3.375 GM In 0.9 % Sodium 100 / 100 Chloride (Mini-Bag +) 100 ML @ 25 mls/hr IVPB Q12H [facility] Rx#: [id number] Oral 0 / 0 0 / 0 Output: Urine 0 / 0 Catheter 2900 / 2900 Other: # Voids 1 # Bowel Movements 0 0 Weight 87.8 kg Blood Glucose* 77 84 Patient Weight 02/22/19 23:59 Weight 87.8 kg - Labs 02/22/19 04:36 02/22/19 04:36 Diabetes panel 02/21/19 02/22/19 Range/Units 16:27 04:36 Sodium 134 L 137 (136-145) mEq/L Potassium 3.7 4.4 (3.5-5.1) mEq/L Chloride 93 L 94 L (98-107) mEq/L Carbon Dioxide 29 27 (23-29) mEq/L BUN 33 H 42 H (8-23) mg/dL Creatinine 8.61 H 9.96 H (0.70-1.30) mg/dL Glucose 108 H 97 (70-105) mg/dL Calcium 10.1 10.0 (8.6-10.3) mg/dL AST 15 (13-39) Units/L ALT 14 (7-52) Units/L Alkaline Phosphatase 88 (34-104) Units/L Albumin 4.5 (3.5-5.7) g/dL Calcium panel 02/21/19 02/22/19 Range/Units 16:27 04:36 Calcium 10.1 10.0 (8.6-10.3) mg/dL Phosphorus 2.6 L (2.7-4.5) mg/dL Albumin 4.5 (3.5-5.7) g/dL Pituitary panel 02/21/19 02/22/19 Range/Units 16:27 04:36 Sodium 134 L 137 (136-145) mEq/L Potassium 3.7 4.4 (3.5-5.1) mEq/L Chloride 93 L 94 L (98-107) mEq/L Carbon Dioxide 29 27 (23-29) mEq/L BUN 33 H 42 H (8-23) mg/dL Creatinine 8.61 H 9.96 H (0.70-1.30) mg/dL Glucose 108 H 97 (70-105) mg/dL Calcium 10.1 10.0 (8.6-10.3) mg/dL Adrenal panel 02/21/19 02/22/19 Range/Units 16:27 04:36 Sodium 134 L 137 (136-145) mEq/L Potassium 3.7 4.4 (3.5-5.1) mEq/L Chloride 93 L 94 L (98-107) mEq/L Carbon Dioxide 29 27 (23-29) mEq/L BUN 33 H 42 H (8-23) mg/dL Creatinine 8.61 H 9.96 H (0.70-1.30) mg/dL Glucose 108 H 97 (70-105) mg/dL Calcium 10.1 10.0 (8.6-10.3) mg/dL Total Bilirubin 0.5 (0.3-1.0) mg/dL AST 15 (13-39) Units/L ALT 14 (7-52) Units/L Alkaline Phosphatase 88 (34-104) Units/L Albumin 4.5 (3.5-5.7) g/dL - Attending Attestation I examined this patient and my medical decision-making was reviewed with the Resident Physician. I agree with the documented findings, disposition and treatment plan as described except to the extent set forth below. I personally reviewed the above assessment and evaluation and agree with the above plan. Patient still has some right lower quadrant abdominal pain but appears softer. He did have a urinary catheter placed by urology which may contribute to some of his improved symptoms. White count has decreased. Continue with IV antibiotics and we will continue with observation. Will consider repeat CT scan in the next 24-48 hours.
[2019-02-22 11:08] LABS: Bilirubin,Urine Negative (Negative); Blood,Urine Small (Negative); Clarity,Urine Clear (Clear); Color,Urine Yellow (Yellow); Glucose,Urine (UA) 250 mg/dL (Normal); Ketones,Urine Negative (Negative); Leukocyte Esterase,Urine Moderate (Negative); Nitrite,Urine Negative (Negative); PH,Urine 8.5 pH Units (5.0-8.0); Protein,Urine 100 mg/dL (Neg-Trace); Specific Gravity,Urine 1.005 (1.010-1.025); Urobilinogen,Urine Normal (Normal)
[2019-02-22 11:11] LABS: Bacteria,Urine None Seen per hpf (None-Few); Hyaline Casts,Urine None Seen per lpf (None-Few); Squamous Epithelial Cell,Urine Moderate per lpf (None-Few); WBC,Urine 15-30 per hpf (0-3)
--- NOTE | 2019-02-22 11:54 | Internal Med Progress Note ---
Hospitalist Progress Note - Encounter Date of Encounter: 02/22/19 Time of Encounter: 09:35 - Subjective Interval History: Patient lying down in bed. Feels a little better compared to yesterday. Continues to have lower abdominal pain. Still retaining urine. Unable to pass Aguilar catheter and so urology is placing suprapubic catheter. No fever this mo rning but did have fever last night with a MAXIMUM TEMPERATURE of 101.8. Remains nothing by mouth. - Exam Vitals: Temp Pulse Resp BP Pulse Ox 99.4 F 101 16 135/78 94 02/22/19 07:25 02/22/19 07:25 02/22/19 07:25 02/22/19 07:25 02/22/19 09:25 Exam: General: Patient is alert, no acute distress, oriented x 3 ENT: Mucous membranes moist Respiratory: Good respiratory effort. Normal breath sounds. No wheezing or crackles. Cardiovascular: Regular rate and rhythm. s1 and s2 normal No clicks, rubs, gallops, or murmurs. No pedal edema Abdomen: Abdomen is soft, tender in the right lower quadrant. Bowel sounds are present Musculoskeletal: Spontaneously moving all extremities Skin: warm, dry, intact. Neuro: Alert oriented x 3 normal cranial nerves, no focal deficits - Assessment and Plan (1) Abdominal pain Current Visit: Yes Status: Acute Assessment and Plan: Acute appendicitis per CT with possible perforation/phlegmon. Surgery consult appreciated. Will continue IV antibiotics and repeat CT scan within the next 48 hours. Continue IV antibiotics. Keep nothing by mouth. (2) Acute appendicitis Current Visit: Yes Status: Acute (3) ESRD (end stage renal disease) Current Visit: Yes Status: Acute (4) DVT prophylaxis Current Visit: Yes Status: Acute (5) Overweight Current Visit: Yes Status: Acute (6) Incontinence of bowel Current Visit: No Status: Chronic (7) Sepsis Current Visit: Yes Status: Suspected (8) Hydroureteronephrosis Current Visit: Yes Status: Acute (9) Bladder outlet obstruction Current Visit: Yes Status: Acute (10) Leukocytosis Current Visit: Yes Status: Acute (11) Hypertension Current Visit: Yes Status: Chronic - Summary of Assessment and Plan Summary of Assessment and Plan: Nephrology consulted for dialysis needs. Patient dialyzed per Saturday schedule. Suprapubic catheter placement to relieve bladder outlet obstru ction as patient has bilateral hydronephrosis. Continue gentle IV hydration for now. High risk for complications. Continue IV Lopressor as needed to control blood pressure. - Time Spent with Patient Total time spent is greater than 50% in coordination of care (as documented) at patient's floor/unit and/or counseling patient: Internal Medicine: Result - Labs CBC & Chem 7: 02/22/19 04:36 02/22/19 04:36 Labs: Short CBC 02/21/19 02/22/19 Range/Units 16:27 04:36 WBC 16.9 H 16.5 H (4.3-11.1) K/mcL Hgb 12.1 L 11.2 L (12.9-16.9) g/dL Hct 36.5 L 34.8 L (37.5-50.1) % Plt Count 203 142 (140-400) K/mcL Neutrophils # 14.7 H (1.6-8.9) K/mcL BMP 02/21/19 02/22/19 16:27 04:36 Sodium 134 L 137 Potassium 3.7 4.4 Chloride 93 L 94 L Carbon Dioxide 29 27 BUN 33 H 42 H Creatinine 8.61 H 9.96 H Glucose 108 H 97 Calcium 10.1 10.0 Cardiac Enzymes 02/21/19 Range/Units 16:27 Troponin I 0.03 (< 0.04) ng/mL Liver Function 02/21/19 Range/Units 16:27 Total Bilirubin 0.5 (0.3-1.0) mg/dL Direct Bilirubin 0.1 (0.0-0.2) mg/dL AST 15 (13-39) Units/L ALT 14 (7-52) Units/L Alkaline Phosphatase 88 (34-104) Units/L Albumin 4.5 (3.5-5.7) g/dL Urine 02/22/19 Range/Units 10:30 Urine Color Yellow (Yellow) Urine Clarity Clear (Clear) Urine pH 8.5 H (5.0-8.0) pH Units Ur Specific [place] 1.005 L (1.010-1.025) Urine Protein 100 H (Neg-Trace) mg/dL Urine Glucose (UA) 250 H (Normal) mg/dL - ABG Interpretation ABG results: PT/INR, D-dimer PT 12.8 Seconds (9.4-12.1) H 02/21/19 16:27 - Impressions Impressions Chest X-Ray 02/21/19 16:18 IMPRESSION: Low lung volumes with bibasilar atelectasis. D/ / Ami Castano MD / Ami Castano MD Interpreting Provider: Ami Castano MD Abdomen/Pelvis CT 02/21/19 16:19 IMPRESSION: 1. Acute appendicitis. A single bubble of extraluminal gas adjacent to the appendix suggest perforation, although there is no definite abscess 2. Progressive severe bilateral hydroureteronephrosis with progressive bilateral renal atrophy. Possible 1.6 cm left renal mass versus remnant nodule renal tissue. Contrast exam may be necessary for clarification 3. Urinary bladder distention with wall thickening compatible with chronic bladder outlet obstruction or chronic bladder dysfunction 4. Colonic diverticulosis D/ / All Lopez MD / All Lopez MD Interpreting Provider: All Lopez MD Gallbladder Ultrasound 02/21/19 16:19 IMPRESSION: Mild gallbladder wall thickening with a small amount of gallbladder sludge. No additional signs to suggest acute cholecystitis. Severe right-sided hydronephrosis. D/ / 02/21/2019 17:19:35 Roldan Osman MD / polina Interpreting Provider: Roldan Osman MD Consult Discharge Plan - Plan Referrals: NONE,PCP [Primary Care Provider] - _ (1) Abdominal pain Qualifiers: Abdominal location: right lower quadrant Qualified Code(s): R10.31 - Right lower quadrant pain (2) Acute appendicitis Qualifiers: Acute appendicitis type: unspecified acute appendicitis type Qualified Code(s): K35.80 - Unspecified acute appendicitis (6) Incontinence of bowel Qualifiers: Fecal incontinence type: unspecified Qualified Code(s): R15.9 - Full incontinence of feces (7) Sepsis Qualifiers: Sepsis type: Escherichia coli Qualified Code(s): A41.51 - Sepsis due to Escherichia coli [E. coli] (10) Leukocytosis Qualifiers: Leukocytosis type: unspecified Qualified Code(s): D72.829 - Elevated white blood cell count, unspecified (11) Hypertension Qualifiers: Hypertension type: essential hypertension Qualified Code(s): I10 - Essential (primary) hypertension
--- NOTE | 2019-02-22 13:33 | Nephrology Consult Note ---
Date of Encounter: 02/22/19 Time of Encounter: 13:00 Assessment and Plan (1) ESRD (end stage renal disease) Current Visit: Yes Status: Chronic ESRD on HD MWF. He said that he only receive 3 hrs of HD, three times per week, at the former [facility] unit in [place], [place]. [facility] was consulted because his nephrology group no longer provides coverage or rounds at [facility]. He said he last dialyzed on Saturday, and so I will plan for his next HD to be planned for tomorrow (Saturday). The patient said he does not know the name of his new filler shredder machine, though he does remember his nurse practitioner Rani Phelps from his dialysis unit. I will plan to have the dialysis RNs request his HD run sheets for more info (he said he was not aware of his dry weight and other details). Appreciate Urology. Discussed with Dr. Garner. Thank you for consulting the [facility] group. I will continue to follow with you. (2) Acute appendicitis Current Visit: Yes Status: Acute As per primary/surgery Qualifiers: Acute appendicitis type: with localized peritonitis Appendicitis gangrene presence: without gangrene Appendicitis perforation presence: without perforation Appendicitis abscess presence: without abscess Qualified Code(s): K35.30 - Acute appendicitis with localized peritonitis, without perforation or gangrene (3) Bladder outlet obstruction Current Visit: Yes Status: Acute Acute on chronic. Appreciate urology (4) Hydroureteronephrosis Current Visit: Yes Status: Acute Appreciate urology (5) Hypertension Current Visit: Yes Status: Chronic Resume home antihypertensive agents. I recommend holding BP meds just before dialysis every M//, if possible, which will allow for smoother treatments and avoidance of intradialytic hypotension. Qualifiers: Hypertension type: essential hypertension Qualified Code(s): I10 - Essential (primary) hypertension History of Present Illness - Reason for Consult Consult date: 02/22/19 end stage renal disease Requesting physician: Peter Morris - Chief Complaint ESRD and here for abd pain - History of Present Illness The patient is a pleasant 68-year-old male with a past medical history of approximately 4 years onset of ESRD on dialysis every Saturday/Saturday/Saturday who presented with worsening abdominal pain. He said that he dialyzes in [place], [place], behind the local [facility], but he could not report who his filler shredder machine is. He said he used to see Dr. Jerez until the sold his practice. The patient affirms having abdominal pain that is slowly improving. He denied having any chest pain or symptoms with his last hemodialysis treatment, which he said was on Saturday. He said that his dialysis treatments are only 3 hours. He thinks the cause of his renal failure is related to his bladder issues. He said that the fistula in the right upper extremity was placed approximately 4 years ago, and that he has not required any recent interventions such as fistulograms to his knowledge. He said he does not know what his dry weight is. He said he does not know the name of the new filler shredder machine, and he voiced surprise that his Nephrology group no longer sees their patients in the hospital. Past Med Surg Social Fam HX - Past Medical History Medical history: dialysis, renal disease Psychiatric history: no psych history - Past Surgical History Additional surgical history: right arm fistula - Social History Smoking Status: Never smoker Smokeless Tobacco Status: No Alcohol use: none Drug use: none - Family History Father Hx Family Genitourinary Disorders: No (No family history of prostate cancer) Medications and Allergies Potassium Chloride PO TID 02/21/19 [History] Simvastatin PO HS 02/21/19 [History] Sodium Bicarbonate PO TID 02/21/19 [History] Allergy/AdvReac Type Severity Reaction Status Date / Time No Known Allergies Allergy Verified 02/21/19 18:30 Review of Systems All Systems: reviewed and no additional remarkable complaints except as stated Exam - Vital Signs Vital signs: Initial Vital Signs Temp Pulse Resp BP Pulse Ox 98.6 F 125 18 152/78 97 02/21/19 16:13 02/21/19 16:13 02/21/19 16:13 02/21/19 16:13 02/21/19 16:13 Vital Signs - Last 8 Hours Temp Pulse Resp BP Pulse Ox 02/22/19 12:51 98.3 F 103 16 147/80 97 02/22/19 09:25 94 02/22/19 07:25 99.4 F 101 16 135/78 94 Intake and Output 02/21/19 02/22/19 02/22/19 23:59 07:59 15:59 Intake Total 1020 / 1020 0 / 100 100 / 100 Output Total 0 / 0 0 / 2900 2900 / 2900 Balance 1020 / 1020 0 / -2800 -2800 / -2800 Intake: IV Fluids 1020 / 1020 100 / 100 0.9 % Sodium Chloride 1,000 ML 1000 / 1000 @ 999 mls/hr IVC .Q1H1M ONE Rx# :[id number] Zosyn 3.375 GM In Water for inj 20 / 20 . (sterile) 20 ML @ 400 mls/hr IVP ONCE ONE Rx#:[id number] Zosyn 3.375 GM In 0.9 % Sodium 100 / 100 Chloride (Mini-Bag +) 100 ML @ 25 mls/hr IVPB Q12H MATILDE Rx#: [id number] Oral 0 / 0 0 / 0 0 / 0 Output: Urine 0 / 0 0 / 0 Catheter 2900 / 2900 Other: # Voids 1 # Bowel Movements 0 0 Weight 87.8 kg 87.8 kg Blood Glucose* 102 77 84 Patient Weight 02/22/19 23:59 Weight 87.8 kg - General Appearance General appearance: well-developed, well-nourished (but thin) EENT: ATNC, PERRL, mucous membranes moist Neck: supple Respiratory: clear Cardiology: no edema, regular rate, regular rhythm, normal S1, normal S2 - Dialysis Access Dialysis Vascular Access: Arteriovenous Fistula (RUE AVF) thrill: Yes bruit: Yes Gastrointestinal: normoactive bowel sounds, tenderness (in the RLQ) Integumentary: warm and dry Neurologic: no focal deficit, no asterixis, alert and oriented x3 Musculoskeletal: no deformities, no erythema, no cyanosis Psychiatric: mood/affect appropriate, cooperative Results - Lab Results 02/22/19 04:36 02/22/19 04:36 Most recent lab results 02/22/19 04:36 Calcium 10.0 Consult Discharge Plan - Plan Referrals: NONE,PCP [Primary Care Provider] -
[2019-02-22] MEDS: *HR* Heparin 5,000 UNIT/ML VIAL SQ SCH (18:42)
[2019-02-23] MEDS: 0.9 % Sodium Chloride 1,000 ML IVC SCH ×2 (02:15→04:10)
[2019-02-23] MEDS: OXYCODONE Oral CONC 10 MG/0.5 ML ORAL.SYG SL PRN ×5 (04:22→22:01)
[2019-02-23 05:44] LABS: Basophils # 0.1 K/mcL (0.0-0.2); Basophils % 0.4 %; Eosinophils # 0.4 K/mcL (0.0-0.6); Eosinophils % 2.6 %; Hematocrit 32.7 % (37.5-50.1); Hemoglobin 10.4 g/dL (12.9-16.9); Immature Granulocytes % 0.4 % (0-4); Lymphocytes # 0.7 K/mcL (0.6-4.6); Lymphocytes % 5.1 %; Mean Corpuscular HGB Conc 31.8 g/dL (31.6-35.5); Mean Corpuscular Hemoglobin 29.7 pg (28.0-33.3); Mean Corpuscular Volume 93.4 fL (83.0-100.0); Mean Platelet Volume 10.7 fL (9.4-12.4); Monocytes # 0.8 K/mcL (0.0-1.3); Neutrophils # 11.7 K/mcL (1.6-8.9); Platelet Count 169 K/mcL (140-400); Red Cell Distribution Width 13.4 % (11.5-14.5); Segmented Neutrophils % 85.5 %
[2019-02-23] MEDS: Piperacillin/Tazobactam 3.375 GM in 0.9 % Sodium Chloride Mini Bag 100 ML IVPB SCH ×2 (05:52→17:27)
[2019-02-23] MEDS: D5% in Water 1,000 ML IVC PRN (05:52)
[2019-02-23] MEDS: *HR* Heparin 5,000 UNIT/ML VIAL SQ SCH ×2 (05:53→17:25)
[2019-02-23 06:01] LABS: Calcium 9.6 mg/dL (8.6-10.3); Potassium 4.7 mEq/L (3.5-5.1)
[2019-02-23 06:42] LABS: Hepatitis B Surface Antigen Nonreactive (Nonreactive)
[2019-02-23] MEDS ORDERED: 0.9 % Sodium Chloride 250 ML IVC PRN (07:05)
[2019-02-23] MEDS ORDERED: 0.9 % Sodium Chloride 1,000 ML PRIME SCH (07:15)
[2019-02-23 07:44] LABS: Hepatitis B Surface Antibody 10.24 mIU/mL
[2019-02-23] MEDS ORDERED: 0.9 % Sodium Chloride 2,000 ML ONE (08:20)
--- NOTE | 2019-02-23 08:50 | AcuteCareSurgery Progress Note ---
<Faith Nevarez N - Last Filed: 02/23/19 08:48> Date of Encounter: 02/23/19 Time of Encounter: 08:48 - Assessment and Plan (1) Acute appendicitis Current Visit: Yes Status: Acute 68-year-old male with past history significant for chronic renal failure on dialysis admitted to the hospital with CT scan findings concerning for acute appendicitis and phlegmon -Continue IV antibiotics -Will possibly repeat CT scan tomorrow to reassess -Continue IV fluids and maintain NPO, okay for ice chips one cup every 8 hours Qualifiers: Acute appendicitis type: with localized peritonitis Appendicitis gangrene p resence: without gangrene Appendicitis perforation presence: without perforation Appendicitis abscess presence: without abscess Qualified Code(s): K35.30 - Acute appendicitis with localized peritonitis, without perforation or gangrene Subjective Narrative: Patient seen and examined at bedside with acute care surgery present. He has a suprapubic catheter in place and reports improvement in his abdominal pain secondary to relief of his urinary obstruction. He still continues to have right lower quadrant abdominal pain with tenderness and guarding. Leukocytosis has improved, hemodynamically stable and afebrile. Objective Vital Signs - Last 8 Hours Temp Pulse Resp BP Pulse Ox 02/23/19 08:29 95 02/23/19 07:06 97.8 F 89 16 137/79 96 02/23/19 04:31 98.2 F 92 16 156/82 97 Intake and Output 02/22/19 02/23/19 02/23/19 23:59 07:59 15:59 Intake Total 1000 / 1100 900 / 900 Output Total 600 / 3500 1200 / 1200 Balance 400 / -2400 -300 / -300 Intake: IV Fluids 1000 / 1100 900 / 900 0.9 % Sodium Chloride 1,000 ML 1000 / 1000 600 / 600 @ 100 mls/hr IVC .Q10H MATILDE Rx#: [id number] Dextrose 5% 1,000 ML @ 100 mls/ 200 / 200 hr IVC .Q10H PRN Rx#:[id number] Zosyn 3.375 GM In 0.9 % Sodium 100 / 100 Chloride (Mini-Bag +) 100 ML @ 25 mls/hr IVPB Q12H MATILDE Rx#: [id number] Oral 0 / 0 Output: Catheter 600 / 3500 1200 / 1200 Other: Meal DINNER NPO Percent of Meal Consumed 0% Blood Glucose* 85 91 - General physical appearance well developed, well nourished - Eyes PERRL, normal ocular movement - ENT normal pinna, normal nares - Neck Neck exam: trachea midline, no venous distension - Respiratory normal expansion, normal respiratory effort - Cardiovascular Cardiovascular exam: Present: RRR - Abdomen Additional Comments: Tenderness to palpation in the right lower quadrant with guarding. The right lower quadrant is firm. There is a suprapubic catheter in place. - Labs 02/23/19 04:54 02/23/19 04:54 Diabetes panel 02/23/19 Range/Units 04:54 Sodium 142 (136-145) mEq/L Potassium 4.7 (3.5-5.1) mEq/L Chloride 103 (98-107) mEq/L Carbon Dioxide 22 L (23-29) mEq/L BUN 60 H (8-23) mg/dL Creatinine 11.49 H (0.70-1.30) mg/dL Glucose 74 (70-105) mg/dL Calcium 9.6 (8.6-10.3) mg/dL Calcium panel 02/23/19 Range/Units 04:54 Calcium 9.6 (8.6-10.3) mg/dL Pituitary panel 02/23/19 Range/Units 04:54 Sodium 142 (136-145) mEq/L Potassium 4.7 (3.5-5.1) mEq/L Chloride 103 (98-107) mEq/L Carbon Dioxide 22 L (23-29) mEq/L BUN 60 H (8-23) mg/dL Creatinine 11.49 H (0.70-1.30) mg/dL Glucose 74 (70-105) mg/dL Calcium 9.6 (8.6-10.3) mg/dL Adrenal panel 02/23/19 Range/Units 04:54 Sodium 142 (136-145) mEq/L Potassium 4.7 (3.5-5.1) mEq/L Chloride 103 (98-107) mEq/L Carbon Dioxide 22 L (23-29) mEq/L BUN 60 H (8-23) mg/dL Creatinine 11.49 H (0.70-1.30) mg/dL Glucose 74 (70-105) mg/dL Calcium 9.6 (8.6-10.3) mg/dL Consult Discharge Plan - Plan Referrals: NONE,PCP [Primary Care Provider] - <Aureliano Lopez - Last Filed: 02/23/19 15:16> Date of Encounter: 02/23/19 Objective Vital Signs - Last 8 Hours Temp Pulse Resp BP Pulse Ox 02/23/19 14:11 97.4 F L 104 15 123/65 97 02/23/19 12:20 117/69 02/23/19 12:05 120/65 02/23/19 11:50 115/68 02/23/19 11:35 115/71 02/23/19 11:20 119/71 02/23/19 11:05 116/72 02/23/19 10:50 124/72 02/23/19 10:35 131/80 02/23/19 10:20 128/72 02/23/19 10:05 125/80 02/23/19 09:50 138/81 02/23/19 09:35 144/88 02/23/19 09:20 97.8 F 16 146/79 02/23/19 08:29 95 Intake and Output 02/22/19 02/23/19 02/23/19 23:59 07:59 15:59 Intake Total 1000 / 1100 900 / 1740 840 / 1740 Output Total 600 / 3500 1200 / 1200 Balance 400 / -2400 -300 / 540 840 / 540 Intake: IV Fluids 1000 / 1100 900 / 1140 240 / 1140 0.9 % Sodium Chloride 1,000 ML 1000 / 1000 600 / 600 @ 100 mls/hr IVC .Q10H MATILDE Rx#: [id number] Dextrose 5% 1,000 ML @ 100 mls/ 200 / 340 140 / 340 hr IVC .Q10H PRN Rx#:[id number] Zosyn 3.375 GM In 0.9 % Sodium 100 / 200 100 / 200 Chloride (Mini-Bag +) 100 ML @ 25 mls/hr IVPB Q12H MATILDE Rx#: [id number] Oral 0 / 0 0 / 0 Intake, Rinseback and Flushes 600 / 600 Output: Catheter 600 / 3500 1200 / 1200 Other: Meal DINNER NPO NPO Percent of Meal Consumed 0% Blood Glucose* 85 91 100 Hemodialysis Net Fluid Removed 2100 (mL) - Labs 02/23/19 04:54 02/23/19 04:54 Diabetes panel 02/23/19 Range/Units 04:54 Sodium 142 (136-145) mEq/L Potassium 4.7 (3.5-5.1) mEq/L Chloride 103 (98-107) mEq/L Carbon Dioxide 22 L (23-29) mEq/L BUN 60 H (8-23) mg/dL Creatinine 11.49 H (0.70-1.30) mg/dL Glucose 74 (70-105) mg/dL Calcium 9.6 (8.6-10.3) mg/dL Calcium panel 02/23/19 Range/Units 04:54 Calcium 9.6 (8.6-10.3) mg/dL Pituitary panel 02/23/19 Range/Units 04:54 Sodium 142 (136-145) mEq/L Potassium 4.7 (3.5-5.1) mEq/L Chloride 103 (98-107) mEq/L Carbon Dioxide 22 L (23-29) mEq/L BUN 60 H (8-23) mg/dL Creatinine 11.49 H (0.70-1.30) mg/dL Glucose 74 (70-105) mg/dL Calcium 9.6 (8.6-10.3) mg/dL Adrenal panel 02/23/19 Range/Units 04:54 Sodium 142 (136-145) mEq/L Potassium 4.7 (3.5-5.1) mEq/L Chloride 103 (98-107) mEq/L Carbon Dioxide 22 L (23-29) mEq/L BUN 60 H (8-23) mg/dL Creatinine 11.49 H (0.70-1.30) mg/dL Glucose 74 (70-105) mg/dL Calcium 9.6 (8.6-10.3) mg/dL - Attending Attestation I examined this patient and my medical decision-making was reviewed with the Resident Physician. I agree with the documented findings, disposition and treatment plan as described except to the extent set forth below. The patient is seen and evaluated on morning rounds with the acute care surgery team. Right lower quadrant pain is improved. Continue IV antibiotics and nonoperative therapy of right lower quadrant phlegmon Aureliano Lopez MD FACS
--- NOTE | 2019-02-23 09:00 | Urology Progress Note ---
Date of Encounter: 02/23/19 Time of Encounter: 08:30 - Assessment and Plan (1) Hydroureteronephrosis Current Visit: Yes Status: Acute (2) Urethral stricture Current Visit: Yes Status: Acute Qualifiers: Urethral stricture sex-location: male urethra-bulbous Qualified Code(s): N35.812 - Other urethral bulbous stricture, male (3) Urinary retention Current Visit: Yes Status: Acute Assessment and plan: Patient is a 68-year-old male who presents with history of urinary retention secondary to severe urethral stricture. Dr. Erickson was able to place a suprapubic catheter that is now draining sufficiently. Patient producing a scan t amount of urine, but he is due for dialysis today. Patient's renal function is diminished with a GFR 4. For now, S/P tube is draining well, but he is aware this may require upsize for standard Aguilar catheter drainage. Urology will continue to follow. Progress Note Subjective: no new complaints Narrative: Patient seen and examined lying in bed in no apparent distress. Super pubic catheter is indwelling and draining scant amount of transparent, pink lemonade urine into bedside bag. Patient denies fever, chills or flank pain. Objective Initial Vital Signs Temp Pulse Resp BP Pulse Ox 98.6 F 125 18 152/78 97 02/21/19 16:13 02/21/19 16:13 02/21/19 16:13 02/21/19 16:13 02/21/19 16:13 - General physical appearance Present: no distress, no pain - Respiratory Present: normal expansion, normal respiratory effort - Abdomen Present: soft, non tender - Genitourinary Urine Appearance: Present: Hematuria (Transparent pink lemonade and urine) - Integumentary Present: no rash, no abnormal pigmentation - Musculoskeletal Present: normal posture - Psychiatric Present: oriented to time, oriented to person, oriented to place, speech is normal, memory intact - Labs 02/23/19 04:54 02/23/19 04:54 Diabetes panel 02/23/19 Range/Units 04:54 Sodium 142 (136-145) mEq/L Potassium 4.7 (3.5-5.1) mEq/L Chloride 103 (98-107) mEq/L Carbon Dioxide 22 L (23-29) mEq/L BUN 60 H (8-23) mg/dL Creatinine 11.49 H (0.70-1.30) mg/dL Glucose 74 (70-105) mg/dL Calcium 9.6 (8.6-10.3) mg/dL Calcium panel 02/23/19 Range/Units 04:54 Calcium 9.6 (8.6-10.3) mg/dL Pituitary panel 02/23/19 Range/Units 04:54 Sodium 142 (136-145) mEq/L Potassium 4.7 (3.5-5.1) mEq/L Chloride 103 (98-107) mEq/L Carbon Dioxide 22 L (23-29) mEq/L BUN 60 H (8-23) mg/dL Creatinine 11.49 H (0.70-1.30) mg/dL Glucose 74 (70-105) mg/dL Calcium 9.6 (8.6-10.3) mg/dL Adrenal panel 02/23/19 Range/Units 04:54 Sodium 142 (136-145) mEq/L Potassium 4.7 (3.5-5.1) mEq/L Chloride 103 (98-107) mEq/L Carbon Dioxide 22 L (23-29) mEq/L BUN 60 H (8-23) mg/dL Creatinine 11.49 H (0.70-1.30) mg/dL Glucose 74 (70-105) mg/dL Calcium 9.6 (8.6-10.3) mg/dL Consult Discharge Plan - Plan Referrals: NONE,PCP [Primary Care Provider] -
--- NOTE | 2019-02-23 10:04 | Electrocardiograph Report ---
[address] [place], [place] [address] Test Date: 2019-02-21 Pat Name: Rocco Mckeon Department: EXAM3 Room: 3A Gender: M Manager Client: : 1950 Requested By: Pascual Gomez Order Number: [id number] Reading MD: Henrik Basilio Measurements Intervals [place] Rate: 131 P: 43 NM: 149 QRS: -36 QRSD: 90 T: 56 QT: 288 QTc: 426 Interpretive Statements Sinus tachycardia Probable left atrial enlargement Left axis deviation Consider anterior infarct Electronically Signed On 02-23-2019 10:02:44 EDT by Henrik Basilio
--- NOTE | 2019-02-23 11:04 | Internal Med Progress Note ---
Hospitalist Progress Note - Encounter Date of Encounter: 02/23/19 Time of Encounter: 09:30 - Subjective Interval History: Patient lying down in bed. Continues to have abdominal pain right lower quadrant. No nausea or vomiting. No fever reported overnight. Is due for dialysis today. - Exam Vitals: Temp Pulse Resp BP Pulse Ox 97.8 F 89 16 137/79 95 02/23/19 07:06 02/23/19 07:06 02/23/19 07:06 02/23/19 07:06 02/23/19 08:29 Exam: General: Patient is alert, mild distress, oriented x 3 ENT: Mucous membranes moist Respiratory: Good respiratory effort. Normal breath sounds. No wheezing or crackles. Cardiovascular: Regular rate and rhythm. s1 and s2 normal No clicks, rubs, gallops, or murmurs. Bilateral trace pedal edema Abdomen: Abdomen is soft, mild tenderness in the right lower quadrant. Bowel sounds are present Musculoskeletal: Spontaneously moving all extremities Skin: warm, dry, intact. Neuro: Alert oriented x 3 normal cranial nerves, no focal deficits - Assessment and Plan (1) Abdominal pain Current Visit: Yes Status: Acute (2) Acute appendicitis Current Visit: Yes Status: Acute (3) ESRD (end stage renal disease) Current Visit: Yes Status: Chronic (4) DVT prophylaxis Current Visit: Yes Status: Acute (5) Overweight Current Visit: Yes Status: Acute (6) Incontinence of bowel Current Visit: No Status: Chronic (7) Sepsis Current Visit: Yes Status: Suspected (8) Hydroureteronephrosis Current Visit: Yes Status: Acute (9) Bladder outlet obstruction Current Visit: Yes Status: Acute (10) Leukocytosis Current Visit: Yes Status: Acute (11) Hypertension Current Visit: Yes Status: Chronic - Summary of Assessment and Plan Summary of Assessment and Plan: Continue medical management for appendicitis with phlegmon with IV antibiotics. WBC count is trending down. Patient underwent suprapubic pelvic catheter placement yesterday which is now draining well. He should not will be taken for dialysis today. Continue to follow surgery recommendations. No fevers or chills reported overnight. Blood sugars are well controlled. Blood pressure is also well controlled. Today echocardiogram done shows EF of 65% with indeterminate diastolic function. Continue to monitor vital signs. High risk for complications - Time Spent with Patient Total time spent is greater than 50% in coordination of care (as documented) at patient's floor/unit and/or counseling patient: Internal Medicine: Result - Labs CBC & Chem 7: 02/23/19 04:54 02/23/19 04:54 Labs: Short CBC 02/23/19 Range/Units 04:54 WBC 13.7 H (4.3-11.1) K/mcL Hgb 10.4 L (12.9-16.9) g/dL Hct 32.7 L (37.5-50.1) % Plt Count 169 (140-400) K/mcL Neutrophils # 11.7 H (1.6-8.9) K/mcL BMP 02/23/19 04:54 Sodium 142 Potassium 4.7 Chloride 103 Carbon Dioxide 22 L BUN 60 H Creatinine 11.49 H Glucose 74 Calcium 9.6 Urine 02/22/19 Range/Units 10:30 Urine Color Yellow (Yellow) Urine Clarity Clear (Clear) Urine pH 8.5 H (5.0-8.0) pH Units Ur Specific [place] 1.005 L (1.010-1.025) Urine Protein 100 H (Neg-Trace) mg/dL Urine Glucose (UA) 250 H (Normal) mg/dL - ABG Interpretation ABG results: PT/INR, D-dimer PT 12.8 Seconds (9.4-12.1) H 02/21/19 16:27 - Impressions Impressions Echocardiogram 02/22/19 20:10 Impressions: LVEF 65%. Mild concentric left ventricular hypertrophy. Indeterminate diastolic function. Normal right ventricular structure and function. Mild mitral regurgitation. No pulmonary hypertension. Left Ventricular Wall Motion: Rest Echo Findings All wall segments showed normal motion. Findings: Study Quality * Technically adequate exam. ECG Findings * Normal sinus rhythm. Left Ventricle * LVEF 65%. * Mild concentric left ventricular hypertrophy. * Indeterminate diastolic function. Right Ventricle * Normal right ventricular structure and function. Left Atrium * Normal left atrial size. Right Atrium * Normal right atrial size. Aortic Valve * No aortic regurgitation. * Trileaflet aortic valve. * Mildly calcified/thickened aortic valve leaflets. * No aortic stenosis. Mitral Valve * Normal mitral valve structure. * No mitral stenosis. * Mild mitral regurgitation. Tricuspid Valve * Normal tricuspid valve structure. * Trace tricuspid regurgitation. * No pulmonary hypertension. Pulmonic Valve * Pulmonic valve is not well visualized. * No pulmonic stenosis. * No pulmonic regurgitation. Pulmonary Artery * Pulmonary artery not well visualized. Aorta * Normally sized aortic root. Pericardium * There is no pericardial effusion present. Interatrial Septum * No evidence of PFO by color Doppler. IVC * Normal IVC dimensions and inspiratory collapse. Consult Discharge Plan - Plan Referrals: NONE,PCP [Primary Care Provider] - (1) Abdominal pain Qualifiers: Abdominal location: right lower quadrant Qualified Code(s): R10.31 - Right lower quadrant pain (2) Acute appendicitis Qualifiers: Acute appendicitis type: with localized peritonitis Appendicitis gangrene presence: without gangrene Appendicitis perforation presence: without perforation Appendicitis abscess presence: without abscess Qualified Code(s): K35.30 - Acute appendicitis with localized peritonitis, without perforation or gangrene (6) Incontinence of bowel Qualifiers: Fecal incontinence type: unspecified Qualified Code(s): R15.9 - Full incontinence of feces (7) Sepsis Qualifiers: Sepsis type: Escherichia coli Qualified Code(s): A41.51 - Sepsis due to Escherichia coli [E. coli] (10) Leukocytosis Qualifiers: Leukocytosis type: unspecified Qualified Code(s): D72.829 - Elevated white blood cell count, unspecified (11) Hypertension Qualifiers: Hypertension type: essential hypertension Qualified Code(s): I10 - Essential (primary) hypertension
--- NOTE | 2019-02-23 12:42 | Nephrology Progress Note ---
Date of Encounter: 02/23/19 Time of Encounter: 10:06 - Assessment and Plan (1) ESRD (end stage renal disease) Current Visit: Yes Status: Chronic Dialysis note: he was tolerating HD well. I reviewed the dialysis run sheets from his chronic dialysis unit. His nephrology group no longer rounds on their patients while admitted at [facility]. I have placed his dialysis orders for today, and the patient was seen and examined during dialysis. Next HD planned for Saturday. Thank you. (2) Acute appendicitis Current Visit: Yes Status: Acute As per primary/surgery Qualifiers: Acute appendicitis type: with localized peritonitis Appendicitis gangrene presence: without gangrene Appendicitis perforation presence: without perforation Appendicitis abscess presence: without abscess Qualified Code(s): K35.30 - Acute appendicitis with localized peritonitis, without perforation or gangrene (3) Bladder outlet obstruction Current Visit: Yes Status: Acute (4) Hydroureteronephrosis Current Visit: Yes Status: Acute (5) Hypertension Current Visit: Yes Status: Chronic Qualifiers: Hypertension type: essential hypertension Qualified Code(s): I10 - Essential (primary) hypertension Subjective Principal diagnosis: ESRD Interval history: The patient was seen and examined while undergoing hemodialysis. He did not affirm having cramping, shortness of breath, or chest pain. He did not affirm having palpitations. Objective - Vital Signs Vital signs: Vital Signs Temp Pulse Resp BP Pulse Ox 02/23/19 11:50 115/68 02/23/19 11:35 115/71 02/23/19 11:20 119/71 02/23/19 11:05 116/72 02/23/19 10:50 124/72 02/23/19 10:35 131/80 02/23/19 10:20 128/72 02/23/19 10:05 125/80 02/23/19 09:50 138/81 02/23/19 09:35 144/88 02/23/19 09:20 97.8 F 16 146/79 02/23/19 08:29 95 02/23/19 07:06 97.8 F 89 16 137/79 96 02/23/19 04:31 98.2 F 92 16 156/82 97 02/22/19 20:07 97.7 F 97 16 136/79 94 02/22/19 15:41 97.4 F L 96 16 133/75 95 02/22/19 12:51 98.3 F 103 16 147/80 97 Intake and Output 02/22/19 02/23/19 02/23/19 23:59 07:59 15:59 Intake Total 1000 / 1100 900 / 1740 840 / 1740 Output Total 600 / 3500 1200 / 1200 Balance 400 / -2400 -300 / 540 840 / 540 Intake: IV Fluids 1000 / 1100 900 / 1140 240 / 1140 0.9 % Sodium Chloride 1,000 ML 1000 / 1000 600 / 600 @ 100 mls/hr IVC .Q10H [facility] Rx#: [id number] Dextrose 5% 1,000 ML @ 100 mls/ 200 / 340 140 / 340 hr IVC .Q10H PRN Rx#:[id number] Zosyn 3.375 GM In 0.9 % Sodium 100 / 200 100 / 200 Chloride (Mini-Bag +) 100 ML @ 25 mls/hr IVPB Q12H [facility] Rx#: [id number] Oral 0 / 0 0 / 0 Intake, Rinseback and Flushes 600 / 600 Output: Catheter 600 / 3500 1200 / 1200 Other: Meal DINNER NPO NPO Percent of Meal Consumed 0% Blood Glucose* 85 91 Hemodialysis Net Fluid Removed 1751 (mL) - General Appearance General appearance: Present: well-developed, well-nourished, appears started age EENT: Present: ATNC, PERRL, mucous membranes moist Neck: Present: supple Respiratory: Present: clear Cardiology: Present: no edema, regular rate, regular rhythm, normal S1, normal S2 Dialysis Vascular Access: Arteriovenous Fistula thrill: Yes bruit: Yes Gastrointestinal: Present: normoactive bowel sounds, no guarding Neurologic: Present: no focal deficit, no asterixis, alert and oriented x3 Musculoskeletal: Present: no deformities, no erythema, no cyanosis Psychiatric: Present: mood/affect appropriate, cooperative - Lab 02/24/19 05:45 02/24/19 05:45 Most recent lab results 02/23/19 04:54 Calcium 9.6 Consult Discharge Plan - Plan Referrals: NONE,PCP [Primary Care Provider] -
[2019-02-24] MEDS: Piperacillin/Tazobactam 3.375 GM in 0.9 % Sodium Chloride Mini Bag 100 ML IVPB SCH ×3 (05:46→21:06)
[2019-02-24] MEDS: *HR* Heparin 5,000 UNIT/ML VIAL SQ SCH ×2 (05:46→17:40)
[2019-02-24] MEDS: D5% in Water 1,000 ML IVC PRN (05:47)
[2019-02-24 06:31] LABS: Basophils # 0.1 K/mcL (0.0-0.2); Basophils % 0.5 %; Eosinophils # 0.4 K/mcL (0.0-0.6); Hematocrit 30.4 % (37.5-50.1); Hemoglobin 10.1 g/dL (12.9-16.9); Immature Granulocytes % 0.7 % (0-4); Lymphocytes # 0.7 K/mcL (0.6-4.6); Lymphocytes % 5.1 %; Mean Corpuscular HGB Conc 33.2 g/dL (31.6-35.5); Mean Corpuscular Hemoglobin 30.1 pg (28.0-33.3); Mean Corpuscular Volume 90.5 fL (83.0-100.0); Mean Platelet Volume 10.4 fL (9.4-12.4); Monocytes % 7.1 %; Neutrophils # 11.6 K/mcL (1.6-8.9); Platelet Count 194 K/mcL (140-400); Red Blood Count 3.36 M/mcL (4.19-5.50); Red Cell Distribution Width 13.3 % (11.5-14.5); Segmented Neutrophils % 83.6 %
[2019-02-24 06:46] LABS: Calcium 9.8 mg/dL (8.6-10.3); Potassium 3.5 mEq/L (3.5-5.1)
[2019-02-24] MEDS ORDERED: Isovue-370 500 ML BOTTLE IVP ONE (08:14)
--- NOTE | 2019-02-24 08:18 | AcuteCareSurgery Progress Note ---
<Faith Nevarez N - Last Filed: 02/24/19 08:15> Date of Encounter: 02/24/19 Time of Encounter: 08:16 - Assessment and Plan (1) Acute appendicitis Current Visit: Yes Status: Acute 68-year-old male with past history significant for chronic renal failure on dialysis admitted to the hospital with CT scan findings concerning for acute appendicitis and phlegmon -Continue IV antibiotics -We will obtain CT abdomen and pelvis with IV and oral contrast today prior to providing surgical recommendations -Strict nothing by mouth after patient completes oral contrast for CT Qualifiers: Acute appendicitis type: with localized peritonitis Appendicitis gangrene presence: without gangrene Appendicitis perforation presence: without perforation Appendicitis abscess presence: without abscess Qualified Code(s): K35.30 - Acute appendicitis with localized peritonitis, without perforation or gangrene Subjective Narrative: Patient seen and examined at bedside this morning. He continues to have pain in the right lower quadrant. There is tenderness with guarding present. Hemodynamically stable. Objective Vital Signs - Last 8 Hours Temp Pulse Resp BP Pulse Ox 02/24/19 03:31 98.7 F 89 16 119/64 94 Intake and Output 02/23/19 02/24/19 02/24/19 23:59 07:59 15:59 Intake Total 558 / 2298 352 / 352 Output Total 1350 / 4650 0 / 0 Balance -792 / -2352 352 / 352 Intake: IV Fluids 558 / 1698 352 / 352 Dextrose 5% 1,000 ML @ 100 mls/ 458 / 798 352 / 352 hr IVC .Q10H PRN Rx#:[id number] Zosyn 3.375 GM In 0.9 % Sodium 100 / 300 Chloride (Mini-Bag +) 100 ML @ 25 mls/hr IVPB Q12H [facility] Rx#: [id number] Oral 0 / 0 0 / 0 Output: Catheter 1350 / 2550 0 / 0 Other: Meal NPO Weight 82.1 kg Blood Glucose* 112 115 Patient Weight 02/24/19 23:59 Weight 82.1 kg - General physical appearance well developed, well nourished - Eyes PERRL, normal ocular movement - ENT normal pinna, normal nares - Neck Neck exam: trachea midline, no venous distension - Respiratory normal expansion, normal respiratory effort - Cardiovascular Cardiovascular exam: Present: RRR - Abdomen Abdomen: Present: tender, guarding, rigid Abdominal Tenderness: RLQ - Labs 02/24/19 05:45 02/24/19 05:45 Diabetes panel 02/24/19 Range/Units 05:45 Sodium 134 L (136-145) mEq/L Potassium 3.5 (3.5-5.1) mEq/L Chloride 94 L (98-107) mEq/L Carbon Dioxide 28 (23-29) mEq/L BUN 37 H (8-23) mg/dL Creatinine 7.98 H (0.70-1.30) mg/dL Glucose 113 H (70-105) mg/dL Calcium 9.8 (8.6-10.3) mg/dL Calcium panel 02/24/19 Range/Units 05:45 Calcium 9.8 (8.6-10.3) mg/dL Pituitary panel 02/24/19 Range/Units 05:45 Sodium 134 L (136-145) mEq/L Potassium 3.5 (3.5-5.1) mEq/L Chloride 94 L (98-107) mEq/L Carbon Dioxide 28 (23-29) mEq/L BUN 37 H (8-23) mg/dL Creatinine 7.98 H (0.70-1.30) mg/dL Glucose 113 H (70-105) mg/dL Calcium 9.8 (8.6-10.3) mg/dL Adrenal panel 02/24/19 Range/Units 05:45 Sodium 134 L (136-145) mEq/L Potassium 3.5 (3.5-5.1) mEq/L Chloride 94 L (98-107) mEq/L Carbon Dioxide 28 (23-29) mEq/L BUN 37 H (8-23) mg/dL Creatinine 7.98 H (0.70-1.30) mg/dL Glucose 113 H (70-105) mg/dL Calcium 9.8 (8.6-10.3) mg/dL Consult Discharge Plan - Plan Referrals: NONE,PCP [Primary Care Provider] - <Adriel Hogan - Last Filed: 02/24/19 11:06> Date of Encounter: 02/24/19 Objective Vital Signs - Last 8 Hours Temp Pulse Resp BP Pulse Ox 02/24/19 10:39 97.8 F 88 15 133/72 98 02/24/19 03:31 98.7 F 89 16 119/64 94 Intake and Output 02/23/19 02/24/19 02/24/19 23:59 07:59 15:59 Intake Total 558 / 2298 352 / 352 Output Total 1350 / 4650 0 / 1000 1000 / 1000 Balance -792 / -2352 352 / -648 -1000 / -648 Intake: IV Fluids 558 / 1698 352 / 352 Dextrose 5% 1,000 ML @ 100 mls/ 458 / 798 352 / 352 hr IVC .Q10H PRN Rx#:[id number] Zosyn 3.375 GM In 0.9 % Sodium 100 / 300 Chloride (Mini-Bag +) 100 ML @ 25 mls/hr IVPB Q12H [facility] Rx#: [id number] Oral 0 / 0 0 / 0 Output: Catheter 1350 / 2550 0 / 1000 1000 / 1000 Other: Meal NPO NPO Weight 82.1 kg Blood Glucose* 112 115 105 Patient Weight 02/24/19 23:59 Weight 82.1 kg - Labs 02/24/19 05:45 02/24/19 05:45 Diabetes panel 02/24/19 Range/Units 05:45 Sodium 134 L (136-145) mEq/L Potassium 3.5 (3.5-5.1) mEq/L Chloride 94 L (98-107) mEq/L Carbon Dioxide 28 (23-29) mEq/L BUN 37 H (8-23) mg/dL Creatinine 7.98 H (0.70-1.30) mg/dL Glucose 113 H (70-105) mg/dL Calcium 9.8 (8.6-10.3) mg/dL Calcium panel 02/24/19 Range/Units 05:45 Calcium 9.8 (8.6-10.3) mg/dL Pituitary panel 02/24/19 Range/Units 05:45 Sodium 134 L (136-145) mEq/L Potassium 3.5 (3.5-5.1) mEq/L Chloride 94 L (98-107) mEq/L Carbon Dioxide 28 (23-29) mEq/L BUN 37 H (8-23) mg/dL Creatinine 7.98 H (0.70-1.30) mg/dL Glucose 113 H (70-105) mg/dL Calcium 9.8 (8.6-10.3) mg/dL Adrenal panel 05/21/19 Range/Units 05:45 Sodium 134 L (136-145) mEq/L Potassium 3.5 (3.5-5.1) mEq/L Chloride 94 L (98-107) mEq/L Carbon Dioxide 28 (23-29) mEq/L BUN 37 H (8-23) mg/dL Creatinine 7.98 H (0.70-1.30) mg/dL Glucose 113 H (70-105) mg/dL Calcium 9.8 (8.6-10.3) mg/dL - Attending Attestation I examined this patient and my medical decision-making was reviewed with the Resident Physician. I agree with the documented findings, disposition and treatment plan as described except to the extent set forth below.
--- NOTE | 2019-02-24 09:38 | Urology Progress Note ---
Date of Encounter: 02/24/19 Time of Encounter: 08:15 - Assessment and Plan (1) Hydroureteronephrosis Current Visit: Yes Status: Acute (2) Urethral stricture Current Visit: Yes Status: Acute Assessment and plan: Patient is a 68-year-old male who presents with a history of urinary retention and severe urethral stricture requiring suprapubic catheterization. Patient is being closely followed by general surgery for a phlegmonous process involving the appendix. Patient has been managed conservatively with IV antibiotics and fluids. Patient is due to repeat CT this afternoon and possibly undergo surgery pending those results. I discussed with patient that he will require upsize of S/P catheter, and if possible, patient may undergo this Saturday in the operating room with Dr. Erickson. If patient proceeds to surgery for appendectomy, urologic coordination would be preferred. Will discuss with Dr. Erickson and continue to follow. Qualifiers: Urethral stricture sex-location: male urethra-bulbous Qualified Code(s): N35.812 - Other urethral bulbous stricture, male (3) Urinary retention Current Visit: Yes Status: Acute Progress Note Narrative: Patient seen and examined sitting upright in chair in no apparent distress. Patient admits to continued right lower quadrant pain. Patient denies fever, chills or flank pain. Suprapubic catheter is indwelling and draining transp arent, dark yellow urine and bedside bag. Objective Initial Vital Signs Temp Pulse Resp BP Pulse Ox 98.6 F 125 18 152/78 97 02/21/19 16:13 02/21/19 16:13 02/21/19 16:13 02/21/19 16:13 02/21/19 16:13 - General physical appearance Present: no distress, no pain - Respiratory Present: normal expansion, normal respiratory effort - Abdomen Present: soft, tender (RLQ) - Genitourinary Urine Appearance: Present: Clear (dark yellow ) - Integumentary Present: no rash, no abnormal pigmentation - Musculoskeletal Present: normal posture - Psychiatric Present: oriented to time, oriented to person, oriented to place, speech is normal, memory intact - Labs 02/24/19 05:45 02/24/19 05:45 Diabetes panel 02/24/19 Range/Units 05:45 Sodium 134 L (136-145) mEq/L Potassium 3.5 (3.5-5.1) mEq/L Chloride 94 L (98-107) mEq/L Carbon Dioxide 28 (23-29) mEq/L BUN 37 H (8-23) mg/dL Creatinine 7.98 H (0.70-1.30) mg/dL Glucose 113 H (70-105) mg/dL Calcium 9.8 (8.6-10.3) mg/dL Calcium panel 02/24/19 Range/Units 05:45 Calcium 9.8 (8.6-10.3) mg/dL Pituitary panel 02/24/19 Range/Units 05:45 Sodium 134 L (136-145) mEq/L Potassium 3.5 (3.5-5.1) mEq/L Chloride 94 L (98-107) mEq/L Carbon Dioxide 28 (23-29) mEq/L BUN 37 H (8-23) mg/dL Creatinine 7.98 H (0.70-1.30) mg/dL Glucose 113 H (70-105) mg/dL Calcium 9.8 (8.6-10.3) mg/dL Adrenal panel 02/24/19 Range/Units 05:45 Sodium 134 L (136-145) mEq/L Potassium 3.5 (3.5-5.1) mEq/L Chloride 94 L (98-107) mEq/L Carbon Dioxide 28 (23-29) mEq/L BUN 37 H (8-23) mg/dL Creatinine 7.98 H (0.70-1.30) mg/dL Glucose 113 H (70-105) mg/dL Calcium 9.8 (8.6-10.3) mg/dL Consult Discharge Plan - Plan Referrals: NONE,PCP [Primary Care Provider] -
--- NOTE | 2019-02-24 10:19 | Nephrology Progress Note ---
Date of Encounter: 02/24/19 Time of Encounter: 10:17 - Assessment and Plan (1) ESRD (end stage renal disease) Current Visit: Yes Status: Chronic Plan for HD tomorrow Will need renal diet when diet resumed Avoid nephrotoxins if possible (2) Acute appendicitis Current Visit: Yes Status: Acute As per primary/surgery Qualifiers: Acute appendicitis type: with localized peritonitis Appendicitis gangrene presence: without gangrene Appendicitis perforation presence: without perforation Appendicitis abscess presence: without abscess Qualified Code(s): K35.30 - Acute appendicitis with localized peritonitis, without perforation or gangrene (3) Hydroureteronephrosis Current Visit: Yes Status: Acute Appreciate urology (4) Bladder outlet obstruction Current Visit: Yes Status: Acute Acute on chronic. Appreciate urology Subjective Principal diagnosis: ESRD Interval history: Patient seen and examined. Standing up working with physical therapy. States he is feeling well. Objective - Vital Signs Vital signs: Vital Signs Temp Pulse Resp BP Pulse Ox 02/24/19 03:31 98.7 F 89 16 119/64 94 02/23/19 19:43 98.1 F 107 16 108/67 93 02/23/19 14:11 97.4 F L 104 15 123/65 97 02/23/19 12:38 97.6 F 16 109/65 02/23/19 12:20 117/69 02/23/19 12:05 120/65 02/23/19 11:50 115/68 02/23/19 11:35 115/71 02/23/19 11:20 119/71 02/23/19 11:05 116/72 02/23/19 10:50 124/72 02/23/19 10:35 131/80 02/23/19 10:20 128/72 Intake and Output 02/23/19 02/24/19 02/24/19 23:59 07:59 15:59 Intake Total 558 / 2298 352 / 352 Output Total 1350 / 4650 0 / 0 Balance -792 / -2352 352 / 352 Intake: IV Fluids 558 / 1698 352 / 352 Dextrose 5% 1,000 ML @ 100 mls/ 458 / 798 352 / 352 hr IVC .Q10H PRN Rx#:[id number] Zosyn 3.375 GM In 0.9 % Sodium 100 / 300 Chloride (Mini-Bag +) 100 ML @ 25 mls/hr IVPB Q12H [facility] Rx#: [id number] Oral 0 / 0 0 / 0 Output: Catheter 1350 / 2550 0 / 0 Other: Meal NPO NPO Weight 82.1 kg Blood Glucose* 112 115 Patient Weight 02/24/19 23:59 Weight 82.1 kg - General Appearance General appearance: Present: well-developed, well-nourished EENT: Present: ATNC, mucous membranes moist, hearing intact, vision intact Neck: Present: supple Cardiology: Present: no edema, regular rate Dialysis Vascular Access: Arteriovenous Fistula Gastrointestinal: Present: no tenderness, no guarding Integumentary: Present: warm and dry Neurologic: Present: alert and oriented x3 Psychiatric: Present: mood/affect appropriate, cooperative - Lab 02/24/19 05:45 02/24/19 05:45 Most recent lab results 02/24/19 05:45 Calcium 9.8 Consult Discharge Plan - Plan Referrals: NONE,PCP [Primary Care Provider] -
--- NOTE | 2019-02-24 11:42 | Internal Med Progress Note ---
Hospitalist Progress Note - Encounter Date of Encounter: 02/24/19 Time of Encounter: 09:45 - Subjective Interval History: Patient sitting up in chair. Taking oral contrast without any issues in anticipation for CT of the abdomen and pelvis. Continues to have mild discomfort in the right lower quadrant. No fever reported overnight. - Exam Vitals: Temp Pulse Resp BP Pulse Ox 97.8 F 88 15 133/72 98 02/24/19 10:39 02/24/19 10:39 02/24/19 10:39 02/24/19 10:39 02/24/19 10:39 Exam: General: Patient is alert, no acute distress, oriented x 3 ENT: Mucous membranes moist Respiratory: Good respiratory effort. Normal breath sounds. No wheezing or crackles. Cardiovascular: Regular rate and rhythm. s1 and s2 normal No clicks, rubs, gallops, or murmurs. No pedal edema Abdomen: Abdomen is soft, mild tenderness in the right lower quadrant. Bowel sounds are present Musculoskeletal: Spontaneously moving all extremities Skin: warm, dry, intact. Neuro: Alert oriented x 3 normal cranial nerves, no focal deficits - Assessment and Plan (1) Acute appendicitis Current Visit: Yes Status: Acute Assessment and Plan: CT of the abdomen and pelvis done today shows acute perforation and abscess. Surgery following. Patient remains nothing by mouth. Continue IV antibiotics. (2) Abdominal pain Current Visit: Yes Status: Acute (3) ESRD (end stage renal disease) Current Visit: Yes Status: Chronic Assessment and Plan: Nephrology following for dialysis needs (4) DVT prophylaxis Current Visit: Yes Status: Acute (5) Overweight Current Visit: Yes Status: Acute (6) Incontinence of bowel Current Visit: No Status: Chronic (7) Sepsis Current Visit: Yes Status: Suspected Assessment and Plan: Leukocytosis stable. Patient has not had any fevers or chills. Sepsis resolving. However patient does have appendicitis with perforation and abscess which may need surgical intervention. (8) Hydroureteronephrosis Current Visit: Yes Status: Acute Assessment and Plan: Treated with suprapubic catheter placement. (9) Bladder outlet obstruction Current Visit: Yes Status: Acute Assessment and Plan: Treated with suprapubic catheter placement (10) Hypertension Current Visit: Yes Status: Chronic Assessment and Plan: Fairly controlled. Continue current medications DVT Prophylaxis: Subcutaneous heparin - Time Spent with Patient Total time spent is greater than 50% in coordination of care (as documented) at patient's floor/unit and/or counseling patient: Internal Medicine: Result - Labs CBC & Chem 7: 02/24/19 05:45 02/24/19 05:45 Labs: Short CBC 02/24/19 Range/Units 05:45 WBC 13.8 H (4.3-11.1) K/mcL Hgb 10.1 L (12.9-16.9) g/dL Hct 30.4 L (37.5-50.1) % Plt Count 194 (140-400) K/mcL Neutrophils # 11.6 H (1.6-8.9) K/mcL BMP 02/24/19 05:45 Sodium 134 L Potassium 3.5 Chloride 94 L Carbon Dioxide 28 BUN 37 H Creatinine 7.98 H Glucose 113 H Calcium 9.8 - ABG Interpretation ABG results: PT/INR, D-dimer PT 12.8 Seconds (9.4-12.1) H 02/21/19 16:27 - Impressions Impressions Abdomen/Pelvis CT 02/24/19 10:45 IMPRESSION: Again identified is a perforated appendix, with interval development of an abscess collection seen in the right lower quadrant along the appendix measuring 2.8 x 1.6 cm focally, with direct continuity of the abscess collection and the perforated wall of the appendix. A small portion of this measured abscess extends superiorly adjacent to the cecum, with cecal wall thickening. Inflammatory changes are seen surrounding the appendix as noted on the previous examination. No significant gas is seen. Treatment of the previously identified severe bilateral hydroureteronephrosis and bladder distention with a suprapubic catheter. There has now been interval development of severe wall thickening of the bladder suggestive of cystitis. Bibasilar linear infiltrates seen in the lung bases, which could be related to atelectasis or bibasilar pneumonia. As noted on the previous examination, there is a small ovoid nodular density seen within the atrophic left renal parenchyma measuring approximately 1.6 cm. It measured the same density on pre and postcontrast imaging. A follow-up MRI in 6 months without and with IV contrast may be beneficial for re-evaluation. D/ / Emiliano Lorenzana MD / Emiliano Lorenzana MD Interpreting Provider: Emiliano Lorenzana MD Consult Discharge Plan - Plan Referrals: NONE,PCP [Primary Care Provider] - (1) Acute appendicitis Qualifiers: Acute appendicitis type: with localized peritonitis Appendicitis gangrene presence: without gangrene Appendicitis perforation presence: with perforation Appendicitis abscess presence: with abscess Qualified Code(s): K35.33 - Acute appendicitis with perforation and localized peritonitis, with abscess (2) Abdominal pain Qualifiers: Abdominal location: right lower quadrant Qualified Code(s): R10.31 - Right lower quadrant pain (6) Incontinence of bowel Qualifiers: Fecal incontinence type: unspecified Qualified Code(s): R15.9 - Full incontinence of feces (7) Sepsis Qualifiers: Sepsis type: Escherichia coli Qualified Code(s): A41.51 - Sepsis due to Escherichia coli [E. coli] (10) Hypertension Qualifiers: Hypertension type: essential hypertension Qualified Code(s): I10 - Essential (primary) hypertension
[2019-02-24] MEDS: OXYCODONE Oral CONC 10 MG/0.5 ML ORAL.SYG SL PRN ×2 (12:02→19:14)
--- NOTE | 2019-02-24 13:31 | Anesthesia Evaluation PreOp ---
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 HX Other Medical History: Renal (ESRD on HD MWF - underwent dialysis yesterday; has RUE fistula, hydronephrosis due to urethral stricture now with urinary catheter) Anesthesia History: No Prior Anesthetic Complications, Past Anesthesia (R UE fistula) Alcohol Use: none Drug use: none Medications and Allergies Simvastatin 20 mg PO HS 02/21/19 [History] Sodium Bicarbonate 1,300 mg PO BIDWM 02/21/19 [History] Ergocalciferol (VITAMIN D2) [Vitamin D2] 1 cap PO QWEEK 02/23/19 [History] Sensipar PO MOWEFR 02/23/19 [History] Sevelamer [Renvela] 800 mg PO TID 02/23/19 [History] Allergy/AdvReac Type Severity Reaction Status Date / Time No Known Allergies Allergy Verified 02/21/19 18:30 - Meds/Allergy Pre-op Review Medications Reviewed: Yes Allergies Reviewed: Yes Beta Blockers on Current Med List: No Anesthesia Results - Labs 02/24/19 05:45 02/24/19 05:45 - Imaging EKG: report reviewed, image reviewed (Sinus tachycardia Probable left atrial enlargement Left axis deviation Consider anterior infarct) Chest x-ray: report reviewed (Low lung volumes with bibasilar atelectasis.) Additional studies: TTE: Impressions: LVEF 65%. Mild concentric left ventricular hypertrophy. Indeterminate diastolic function. Normal right ventricular structure and function. Mild mitral regurgitation. No pulmonary hypertension. CT abd/pelvis: IMPRESSION: Again identified is a perforated appendix, with interval development of an abscess collection seen in the right lower quadrant along the appendix measuring 2.8 x 1.6 cm focally, with direct continuity of the abscess collection and the perforated wall of the appendix. A small portion of this measured abscess extends superiorly adjacent to the cecum, with cecal wall thickening. Inflammatory changes are seen surrounding the appendix as noted on the previous examination. No significant gas is seen. Treatment of the previously identified severe bilateral hydroureteronephrosis and bladder distention with a suprapubic catheter. There has now been interval development of severe wall thickening of the bladder suggestive of cystitis. Bibasilar linear infiltrates seen in the lung bases, which could be related to atelectasis or bibasilar pneumonia. As noted on the previous examination, there is a small ovoid nodular density seen within the atrophic left renal parenchyma measuring approximately 1.6 cm. It measured the same density on pre and postcontrast imaging. A follow-up MRI in 6 months without and with IV contrast may be beneficial for re-evaluation. Anesthesia Exam Last Vital Signs Temp 97.8 F 02/24/19 10:39 Pulse 88 02/24/19 10:39 Resp 15 02/24/19 10:39 BP 133/72 02/24/19 10:39 Pulse Ox 98 02/24/19 10:39 Weight: 82 kg - HEENT Pupil (Motor): Pupils equal, EOMI Mallampati: III Teeth: Missing Denture Type: Upper: Complete Oral Opening: Greater than 3 - REEL FED PRINTER LOC: Oriented - Cardiac Rhythm: Regular Murmur: None - Pulmonary Breath Sounds: bilateral Clear Respiratory Effort: Symmetrical Anesthesia Assess/Plan ASA Score: 3 Level of consciousness: Cooperative Anesthetic Plan: General Monitoring Plan: Standard Monitors Recovery Plan: PACU
--- NOTE | 2019-02-24 14:01 | Acute Care Surgery Event Note ---
Date of Encounter: 02/24/19 Time of Encounter: 11:00 This 68-year-old male is admitted to [facility] 3 days ago with a perforated acute appendicitis. He initially undergoes conservative therapy with bowel rest and IV antibiotics. His initial response to conservative therapy was very good his abdominal pain was resolving and he was starting to tolerate a diet. However him sometime overnight early this morning his nausea and abdominal pain recurred. The white count is still 13,000 which is down from the admission of leukocytosis. An interval Abdomen and pelvis CT was obtained. There is now a right lower quadrant abscess with a perforated appendix with a observable defect in the appendix. The inflammation extends into the right pericolic gutter involving the right colon. It is recommended to the patient at this time to undergo surgery for appendectomy hopefully laparoscopic probably open. Surgery will include drainage possible ileocecectomy is discussed as well as possible diverting ileostomy. Procedure's risks and benefits of operation were discussed with the patient. Possible complications include but are not limited to bleeding perforation injury to small intestine or ureter. Anesthesia will discuss with the patient possible complications of anesthesia. Patient understands and is willing to proceed as advised. Consent is obtained. Surgery is scheduled.
[2019-02-24] MEDS ORDERED: *HR* FentaNYL (PF) 100 MCG/2 ML VIAL ONE (14:34)
[2019-02-24] MEDS ORDERED: *HR* Propofol 200 MG/20 ML VIAL IVP ONE (14:35)
[2019-02-24] MEDS ORDERED: *HR* Rocuronium Bromide 50 MG/5 ML VIAL ONE (14:36)
[2019-02-24] MEDS ORDERED: *HR* Succinylcholine 200 MG/10 ML VIAL IVP ONE (14:36)
[2019-02-24] MEDS ORDERED: Lidocaine -MPF 2% 2 ML VIAL ONE (14:36)
[2019-02-24] MEDS ORDERED: Dexamethasone 4 MG/ML VIAL ONE ×2 (14:38→17:00)
[2019-02-24] MEDS ORDERED: Ondansetron 4 MG/2 ML VIAL ONE (14:38)
[2019-02-24] MEDS ORDERED: *HR* OxyCODONE Immed Rel 5 MG TABLET PO PRN (15:20)
[2019-02-24] MEDS ORDERED: Bupivacaine/EPI 1:200k 0.5%PF 30 ML VIAL ONE (15:34)
[2019-02-24] MEDS ORDERED: Acetaminophen IV 1,000 MG/100 ML INFUS..BTL ONE (15:52)
--- NOTE | 2019-02-24 16:56 | Operative Note ---
Date of procedure: 02/24/19 Pre-op diagnosis: Urethral stricture, urinary retention Post-op diagnosis: same Procedure: Cystoscopy, dilation urethral stricture, suprapubic cystostomy Implants: SP tube and urethral hickey Complications: none Anesthesia: GETA Surgeon: Johnny Metzger Was there an special education assistant present: No Estimated blood loss (cc): 2 Specimen: none Condition: stable Disposition: other Procedure in Detail: Very pleasant 68-year-old gentleman admitted to the acute care surgery service for appendicitis with phlegmon. During admission the patient developed urinary retention. A Hickey catheter could not be placed due to recurrent and history of urethral stricture. End of having a suprapubic tube placed over the weekend. The patient is now undergoing abdominal exploration by acute care surgery. We will perform cystoscopy with attempted urethral dilation as well as placement of a formal suprapubic cystostomy tube as his current emergent suprapubic tube is very small diameter and not appropriate for long-term management. The patient brought the operating theater placed on table supine position. Is identified by name date of and administered a general anesthetic. Patient's abdomen was prepped and draped in normal sterile fashion. Through the existing suprapubic tube the bladder was distended with normal saline solution. Flexible cystoscopy was performed. The level of the bulbar/membranous urethra a very tight stricture was encountered. A Glidewire was advanced stricture. The stricture was then dilated from 8 to 16-Stateless. The existing sutures holding the needle guided suprapubic catheter in place were divided. Prior to removal of the existing suprapubic catheter a punch suprapubic tube kit was used to place a 16-Stateless suprapubic catheter immediately adjacent and inferior to the needle guided catheter. The needle guide catheter was removed. Superior tube was secured to the skin with a 0 silk ligature. The balloon of the suprapubic catheter was filled with 20 mL of sterile water.. A 14-Stateless Hickey catheter was placed to the urethral and secured in the bladder with sterile water filling the balloon. Sterile dressings were applied and this ended the operative procedure. At this point the patient remained under general anesthesia and was turned over to the care of Dr. Dimas Roth of acute care surgery with a primary portion of his procedure.
[2019-02-24] MEDS ORDERED: *HR* Phenylephrine 10 MG/ML VIAL ONE (17:00)
[2019-02-24] MEDS ORDERED: *HR* PHENYLEPHRINE 1,000 MCG/10 ML SYRINGE IVP ONE (17:00)
[2019-02-24] MEDS ORDERED: EPHEDrine 50 MG/ML VIAL ONE (17:01)
[2019-02-24] MEDS ORDERED: Neostigmine Methylsulfate 3 MG/3 ML SYRINGE ONE (17:29)
[2019-02-24] MEDS ORDERED: *HR* Morphine 10 MG/ML VIAL ONE (17:41)
--- NOTE | 2019-02-24 19:30 | Operative Note ---
Date of procedure: 02/24/19 Pre-op diagnosis: acute perforated appendicitis Post-op diagnosis: same Anesthesia: GETA Surgeon: Adriel Roth Was there an funeral assistant present: Yes Fiscal Technician: Daria Patel Estimated blood loss (cc): 100 Specimen: terminal ileum, appendix and cecum Condition: stable Disposition: PACU Procedure in Detail: This 68-year-old male with an acute ruptured appendicitis is taken to the operating room and placed in the supine position. After induction of anesthesia and timeout initially patient underwent cystoscopy with dilation of urethral stricture and placement of Aguilar catheter by Dr. Metzger, as well as an exchange of an SP catheter. Details of Dr. Metzger as part of the operation can be related his dictated operative note. After the urology portion of the operation was completed anterior abdominal wall was prepped and draped in the usual sterile fashion. A 1 to 2 cm curvilinear incision is made in the infraumbilical area. Subcutaneous tissues were dissected down to anterior rectus fascia. Fascia was grasped with a Wetmore clamp and stay sutures were placed. The fascia is divided posterior rectus fascia and peritoneum were elevated and divided in the same manner a Cohn port is inserted and pneumoperitoneum was achieved exploration of the intra-abdominal cavity reveals no lower midline adhesions secondary to previous prostatectomy which is good. However, a right lower quadrant abscess that is contained to and involving the appendix and cecum is identified. The abscess is drained and the appendix is identified but the base of the appendix is severely attenuated as is a good portion of the cecum. It is determined at this time that a conversion to open operation for an ileocecectomy should be done. The camera and ports are removed. A midline incision is made. The right colon is mobilized to the midline. MAXIMINO stapling devices are used to staple across the terminal ileum and the mid ascending colon. Transection margins are good and healthy tissue without signs of inflammation or involvement of the infection process. A [id number]-wy-eaiq anastomosis is made between the terminal ileum and the descending colon using a MAXIMINO stapling device. The rent that is created to allow for the stapling device to be inserted into the small intestine and colon is then closed using 3-0 Vicryl sutures for a full-thickness layer of closure followed by 3-0 silk Lembert sutures. The intra-abdominal cavity in the pelvis and right pericolic gutter and Salmon's pouch is copiously irrigated. A 10 flat SMITHA drain is placed. The drain is sewn into position using 3-0 nylon suture. The fascia is closed using #1 looped PDS. Skin is closed using sloane. Sterile dressings are placed patient tolerated procedure well was taken to PACU in good condition.
--- NOTE | 2019-02-24 20:05 | Anesthesia Evaluation Post Op ---
Date of Encounter: 02/24/19 Time of Encounter: 20:04 - Vital Signs Vital Signs: Vital Signs/O2 Sat, Most Current Temp Pulse Resp BP Pulse Ox 99.4 F 84 12 126/80 99 02/24/19 19:48 02/24/19 19:48 02/24/19 19:48 02/24/19 19:48 02/24/19 19:48 - Lungs Lungs: Clear Ascult./Percussion - Airway Airway: Non-obstructed - Cardiovascular Regular Rate - Mental Status Mental Status: Alert & Oriented, Answers Appropriately - Pain Pain Scale: 0 Pain Scale used: Numeric (1 - 10) - Nausea Vomiting Nausea Vomiting: Not Present - Hydration Hydration: Ice chips, Aguilar catheter - Discharge PostOp Status: Transfer Patient to floor
[2019-02-24] MEDS ORDERED: *HR* Dextrose 50 % in Water (Syg) 50 ML SYRINGE IVP PRN (20:34)
[2019-02-24] MEDS ORDERED: Naloxone 0.4 MG/ML INJ IVP PRN (20:34)
[2019-02-24] MEDS ORDERED: Dextrose Gel 15 GM/37.5 ML TUBE PO PRN ×2 (20:34)
[2019-02-24] MEDS ORDERED: 0.9 % Sodium Chloride 1,000 ML PRIME SCH (20:34)
[2019-02-24] MEDS ORDERED: D5% in Water 1,000 ML IVC PRN (20:34)
[2019-02-24] MEDS: 0.9 % Sodium Chloride 1,000 ML IVC SCH (21:06)
[2019-02-25] MEDS ORDERED: Acetaminophen IV 1,000 MG/100 ML INFUS..BTL IVPB SCH
[2019-02-25] MEDS: OXYCODONE Oral CONC 10 MG/0.5 ML ORAL.SYG SL PRN (00:18)
[2019-02-25] MEDS: Acetaminophen IV 1,000 MG/100 ML INFUS..BTL IVPB SCH ×5 (00:20→23:03)
[2019-02-25 05:10] LABS: Basophils % 0.2 %; Eosinophils % 0.1 %; Hematocrit 31.9 % (37.5-50.1); Hemoglobin 10.5 g/dL (12.9-16.9); Lymphocytes # 0.5 K/mcL (0.6-4.6); Lymphocytes % 3.6 %; Mean Corpuscular HGB Conc 32.9 g/dL (31.6-35.5); Mean Corpuscular Hemoglobin 29.7 pg (28.0-33.3); Mean Corpuscular Volume 90.4 fL (83.0-100.0); Mean Platelet Volume 10.2 fL (9.4-12.4); Monocytes # 0.7 K/mcL (0.0-1.3); Monocytes % 5.1 %; Neutrophils # 12.5 K/mcL (1.6-8.9); Platelet Count 218 K/mcL (140-400); Red Blood Count 3.53 M/mcL (4.19-5.50); Red Cell Distribution Width 13.4 % (11.5-14.5)
[2019-02-25 05:27] LABS: Calcium 9.9 mg/dL (8.6-10.3); Potassium 4.6 mEq/L (3.5-5.1)
[2019-02-25] MEDS: Piperacillin/Tazobactam 3.375 GM in 0.9 % Sodium Chloride Mini Bag 100 ML IVPB SCH ×2 (06:01→17:58)
[2019-02-25] MEDS: *HR* Heparin 5,000 UNIT/ML VIAL SQ SCH ×2 (06:02→17:29)
--- NOTE | 2019-02-25 07:49 | AcuteCareSurgery Progress Note ---
<Faith Nevarez N - Last Filed: 02/25/19 09:47> Date of Encounter: 02/25/19 Time of Encounter: 09:47 (\) - Assessment and Plan (1) Acute appendicitis Current Visit: Yes Status: Acute 68-year-old male with past history significant for chronic renal failure on dialysis admitted to the hospital with CT scan findings concerning for acute appendicitis and phlegmon -Postoperative day #1 from ileocecectomy and grpt-ub-fply anastomosis for acute perforated appendicitis. -Patient is doing well this morning, appropriate postsurgical tenderness, no c omplications -Continue IV antibiotics and IV fluids -Keep NPO until flatus -Acute care surgery will continue to follow Qualifiers: Acute appendicitis type: with localized peritonitis Appendicitis gangrene presence: without gangrene Appendicitis perforation presence: with perforation Appendicitis abscess presence: with abscess Qualified Code(s): K35.33 - Acute appendicitis with perforation and localized peritonitis, with abscess Subjective Narrative: Patient seen and examined at bedside this morning with acute care surgery team. He is POD #1 from ileocecectomy with [id number] anastomosis for a perforated appendicitis. No intraoperative complications. Patient has appropriate postsurgical pain and tenderness of his abdomen today. Objective Vital Signs - Last 8 Hours Temp Pulse Resp BP Pulse Ox 02/25/19 07:26 98.4 F 94 16 132/75 94 02/25/19 02:10 97.9 F 87 16 128/71 95 02/25/19 00:04 97.8 F 100 15 147/78 94 Intake and Output 02/24/19 02/24/19 02/25/19 15:59 23:59 07:59 Intake Total 540 / 1092 200 / 1092 300 / 300 Output Total 1000 / 1060 60 / 1060 820 / 820 Balance -460 / 32 140 / 32 -520 / -520 Intake: IV Fluids 540 / 1092 200 / 1092 300 / 300 Dextrose 5% 1,000 ML @ 100 mls/ 440 / 992 200 / 992 hr IVC .Q10H PRN Rx#:[id number] Ofirmev 1,000 mg/100 ml 1,000 200 / 200 mg In 100 ml @ 400 mls/hr IVPB Q6HR [facility] Rx#:[id number] Zosyn 3.375 GM In 0.9 % Sodium 100 / 100 100 / 100 Chloride (Mini-Bag +) 100 ML @ 25 mls/hr IVPB Q12HR [facility] Rx#: [id number] Oral 0 / 0 Output: Urine 0 / 0 Estimated Blood Loss 50 / 50 Catheter 1000 / 1000 800 / 800 Wound Drainage Right Lower Abdomen Other: Meal NPO NPO Percent of Meal Consumed 0% Blood Glucose* 105 105 - General physical appearance well developed, well nourished - Eyes PERRL, normal ocular movement - ENT normal nares, normal mucosa - Neck Neck exam: trachea midline, no venous distension - Respiratory normal expansion, normal respiratory effort - Cardiovascular Cardiovascular exam: Present: RRR - Abdomen Abdomen: Present: tender (Appropriate postsurgical tenderness. Right lower quadrant bandage) - Musculoskeletal normal posture - Labs 02/25/19 04:47 02/25/19 04:47 Diabetes panel 02/25/19 Range/Units 04:47 Sodium 133 L (136-145) mEq/L Potassium 4.6 D (3.5-5.1) mEq/L Chloride 96 L (98-107) mEq/L Carbon Dioxide 21 L (23-29) mEq/L BUN 45 H (8-23) mg/dL Creatinine 9.06 H (0.70-1.30) mg/dL Glucose 111 H (70-105) mg/dL Calcium 9.9 (8.6-10.3) mg/dL Calcium panel 02/25/19 Range/Units 04:47 Calcium 9.9 (8.6-10.3) mg/dL Pituitary panel 02/25/19 Range/Units 04:47 Sodium 133 L (136-145) mEq/L Potassium 4.6 D (3.5-5.1) mEq/L Chloride 96 L (98-107) mEq/L Carbon Dioxide 21 L (23-29) mEq/L BUN 45 H (8-23) mg/dL Creatinine 9.06 H (0.70-1.30) mg/dL Glucose 111 H (70-105) mg/dL Calcium 9.9 (8.6-10.3) mg/dL Adrenal panel 02/25/19 Range/Units 04:47 Sodium 133 L (136-145) mEq/L Potassium 4.6 D (3.5-5.1) mEq/L Chloride 96 L (98-107) mEq/L Carbon Dioxide 21 L (23-29) mEq/L BUN 45 H (8-23) mg/dL Creatinine 9.06 H (0.70-1.30) mg/dL Glucose 111 H (70-105) mg/dL Calcium 9.9 (8.6-10.3) mg/dL Consult Discharge Plan - Plan Referrals: NONE,PCP [Primary Care Provider] - <Aureliano Lopez - Last Filed: 02/25/19 12:08> Date of Encounter: 02/25/19 Objective Vital Signs - Last 8 Hours Temp Pulse Resp BP Pulse Ox 02/25/19 11:30 118/69 02/25/19 11:15 121/69 02/25/19 11:00 119/70 02/25/19 10:45 122/61 02/25/19 10:30 15 123/72 02/25/19 08:15 94 02/25/19 07:26 98.4 F 94 16 132/75 94 Intake and Output 02/24/19 02/25/19 02/25/19 23:59 07:59 15:59 Intake Total 200 / 1092 300 / 800 500 / 800 Output Total 60 / 1060 820 / 1220 400 / 1220 Balance 140 / 32 -520 / -420 100 / -420 Intake: IV Fluids 200 / 1092 300 / 300 Dextrose 5% 1,000 ML @ 100 mls/ 200 / 992 hr IVC .Q10H PRN Rx#:[id number] Ofirmev 1,000 mg/100 ml 1,000 200 / 200 mg In 100 ml @ 400 mls/hr IVPB Q6HR [facility] Rx#:[id number] Zosyn 3.375 GM In 0.9 % Sodium 100 / 100 Chloride (Mini-Bag +) 100 ML @ 25 mls/hr IVPB Q12HR [facility] Rx#: [id number] Oral 0 / 0 Intake, Rinseback and Flushes 500 / 500 Output: Urine 0 / 0 Estimated Blood Loss 50 / 50 Catheter 800 / 1200 400 / 1200 Wound Drainage 20 / 20 0 / 20 Right Lower Abdomen 20 0 / 20 Other: Meal NPO npo breakfast Blood Glucose* 105 92 Hemodialysis Net Fluid Removed 672 (mL) - Labs 02/25/19 04:47 02/25/19 04:47 Diabetes panel 02/25/19 Range/Units 04:47 Sodium 133 L (136-145) mEq/L Potassium 4.6 D (3.5-5.1) mEq/L Chloride 96 L (98-107) mEq/L Carbon Dioxide 21 L (23-29) mEq/L BUN 45 H (8-23) mg/dL Creatinine 9.06 H (0.70-1.30) mg/dL Glucose 111 H (70-105) mg/dL Calcium 9.9 (8.6-10.3) mg/dL Calcium panel 02/25/19 Range/Units 04:47 Calcium 9.9 (8.6-10.3) mg/dL Pituitary panel 02/25/19 Range/Units 04:47 Sodium 133 L (136-145) mEq/L Potassium 4.6 D (3.5-5.1) mEq/L Chloride 96 L (98-107) mEq/L Carbon Dioxide 21 L (23-29) mEq/L BUN 45 H (8-23) mg/dL Creatinine 9.06 H (0.70-1.30) mg/dL Glucose 111 H (70-105) mg/dL Calcium 9.9 (8.6-10.3) mg/dL Adrenal panel 02/25/19 Range/Units 04:47 Sodium 133 L (136-145) mEq/L Potassium 4.6 D (3.5-5.1) mEq/L Chloride 96 L (98-107) mEq/L Carbon Dioxide 21 L (23-29) mEq/L BUN 45 H (8-23) mg/dL Creatinine 9.06 H (0.70-1.30) mg/dL Glucose 111 H (70-105) mg/dL Calcium 9.9 (8.6-10.3) mg/dL - Attending Attestation I examined this patient and my medical decision-making was reviewed with the Resident Physician. I agree with the documented findings, disposition and treatment plan as described except to the extent set forth below. The patient is seen and evaluated on morning rounds with the acute care surgery team. He is doing well after ileocecectomy for fully perforated appendicitis and abscess involving the cecal wall. His pain control is excellent. We will keep him nothing by mouth until he demonstrates bowel function with flatus. Aureliano Lopez MD FACS
--- NOTE | 2019-02-25 08:45 | Urology Progress Note ---
<Josy Garcia N - Last Filed: 02/25/19 08:42> Date of Encounter: 02/25/19 Time of Encounter: 08:20 - Assessment and Plan (1) Hydroureteronephrosis Current Visit: Yes Status: Acute (2) Urethral stricture Current Visit: Yes Status: Acute Assessment and plan: Patient is a 68-year-old male who presents one day status post cystoscopy, dilation urethral stricture, suprapubic cystostomy. Patient is recovering very well postoperatively. Urethral Aguilar indwelling and draining sufficiently. Vital signs are stable and afebrile. Urine culture is negative. Urology will continue to follow. Qualifiers: Urethral stricture sex-location: male urethra-bulbous Qualified Code(s): N35.812 - Other urethral bulbous stricture, male (3) Urinary retention Current Visit: Yes Status: Acute Progress Note Narrative: POD #1. Patient seen and examined sitting upright in bed in no apparent d istress. Patient reports pain is well-controlled at present. Aguilar catheter is indwelling and draining transparent, pink lemonade urine into bedside bag. Suprapubic catheter is indwelling with catheter plug. Primary dressings are clean, dry and intact. Objective Initial Vital Signs Temp Pulse Resp BP Pulse Ox 98.6 F 125 18 152/78 97 02/21/19 16:13 02/21/19 16:13 02/21/19 16:13 02/21/19 16:13 02/21/19 16:13 - General physical appearance Present: no distress, no pain - Respiratory Present: normal expansion, normal respiratory effort - Abdomen Present: soft, non tender, wound (Primary dressings are clean, dry and intact) - Genitourinary Urine Appearance: Present: Hematuria (Transparent, pink lemonade urine) - Integumentary Present: no rash, no abnormal pigmentation - Musculoskeletal Present: normal posture - Psychiatric Present: oriented to time, oriented to person, oriented to place, speech is normal, memory intact - Labs 02/25/19 04:47 02/25/19 04:47 Diabetes panel 02/25/19 Range/Units 04:47 Sodium 133 L (136-145) mEq/L Potassium 4.6 D (3.5-5.1) mEq/L Chloride 96 L (98-107) mEq/L Carbon Dioxide 21 L (23-29) mEq/L BUN 45 H (8-23) mg/dL Creatinine 9.06 H (0.70-1.30) mg/dL Glucose 111 H (70-105) mg/dL Calcium 9.9 (8.6-10.3) mg/dL Calcium panel 02/25/19 Range/Units 04:47 Calcium 9.9 (8.6-10.3) mg/dL Pituitary panel 02/25/19 Range/Units 04:47 Sodium 133 L (136-145) mEq/L Potassium 4.6 D (3.5-5.1) mEq/L Chloride 96 L (98-107) mEq/L Carbon Dioxide 21 L (23-29) mEq/L BUN 45 H (8-23) mg/dL Creatinine 9.06 H (0.70-1.30) mg/dL Glucose 111 H (70-105) mg/dL Calcium 9.9 (8.6-10.3) mg/dL Adrenal panel 02/25/19 Range/Units 04:47 Sodium 133 L (136-145) mEq/L Potassium 4.6 D (3.5-5.1) mEq/L Chloride 96 L (98-107) mEq/L Carbon Dioxide 21 L (23-29) mEq/L BUN 45 H (8-23) mg/dL Creatinine 9.06 H (0.70-1.30) mg/dL Glucose 111 H (70-105) mg/dL Calcium 9.9 (8.6-10.3) mg/dL Consult Discharge Plan - Plan Referrals: NONE,PCP [Primary Care Provider] - <Johnny Metzger - Last Filed: 02/25/19 14:40> Date of Encounter: 02/25/19 - Assessment and Plan (1) Bladder outlet obstruction Current Visit: Yes Status: Acute (2) Urethral stricture Current Visit: Yes Status: Acute Assessment and plan: Patient seen and examined independently. I am in agreement with the assessment and plan as outlined by our Urologic Surgery Department Physician [facility], Radha. Discussed operative findings with patient in detail. Plan: Home with both suprapubic tube and indwelling urethral Aguilar. Outpatient follow-up with me in 1-2 weeks for further discussion regarding options for management of urethral stricture and urinary retention. Qualifiers: Urethral stricture sex-location: male urethra-bulbous Qualified Code(s): N35.812 - Other urethral bulbous stricture, male Objective Initial Vital Signs Temp Pulse Resp BP Pulse Ox 98.6 F 125 18 152/78 97 02/21/19 16:13 02/21/19 16:13 02/21/19 16:13 02/21/19 16:13 02/21/19 16:13 - Labs 02/25/19 04:47 02/25/19 04:47 Diabetes panel 02/25/19 Range/Units 04:47 Sodium 133 L (136-145) mEq/L Potassium 4.6 D (3.5-5.1) mEq/L Chloride 96 L (98-107) mEq/L Carbon Dioxide 21 L (23-29) mEq/L BUN 45 H (8-23) mg/dL Creatinine 9.06 H (0.70-1.30) mg/dL Glucose 111 H (70-105) mg/dL Calcium 9.9 (8.6-10.3) mg/dL Calcium panel 02/25/19 Range/Units 04:47 Calcium 9.9 (8.6-10.3) mg/dL Pituitary panel 02/25/19 Range/Units 04:47 Sodium 133 L (136-145) mEq/L Potassium 4.6 D (3.5-5.1) mEq/L Chloride 96 L (98-107) mEq/L Carbon Dioxide 21 L (23-29) mEq/L BUN 45 H (8-23) mg/dL Creatinine 9.06 H (0.70-1.30) mg/dL Glucose 111 H (70-105) mg/dL Calcium 9.9 (8.6-10.3) mg/dL Adrenal panel 02/25/19 Range/Units 04:47 Sodium 133 L (136-145) mEq/L Potassium 4.6 D (3.5-5.1) mEq/L Chloride 96 L (98-107) mEq/L Carbon Dioxide 21 L (23-29) mEq/L BUN 45 H (8-23) mg/dL Creatinine 9.06 H (0.70-1.30) mg/dL Glucose 111 H (70-105) mg/dL Calcium 9.9 (8.6-10.3) mg/dL
[2019-02-25] MEDS ORDERED: 0.9 % Sodium Chloride 1,000 ML ONE (11:58)
--- NOTE | 2019-02-25 12:14 | Nephrology Progress Note ---
Date of Encounter: 02/25/19 Time of Encounter: 11:15 - Assessment and Plan (1) ESRD (end stage renal disease) Current Visit: Yes Status: Chronic ESRD on HD every Saturday/Saturday/Saturday, and I reviewed his labs, vitals, medications, progress notes and arranged for dialysis orders today. He appears to be tolerating his dialysis treatment well, and he is tentatively scheduled for his next dialysis on Saturday. (2) Hydroureteronephrosis Current Visit: Yes Status: Acute Appreciate urology (3) Bladder outlet obstruction Current Visit: Yes Status: Acute Acute on chronic. Appreciate urology (4) Hypertension Current Visit: Yes Status: Chronic Resume home antihypertensive agents. I recommend holding BP meds just before dialysis every M//, if possible, which will allow for smoother treatments and avoidance of intradialytic hypotension. Qualifiers: Hypertension type: essential hypertension Qualified Code(s): I10 - Essential (primary) hypertension Subjective Principal diagnosis: ESRD Interval history: The patient was seen and examined while undergoing hemodialysis. He did not affirm having cramping, shortness of breath, or chest pain. He did not affirm having palpitations. Objective - Vital Signs Vital signs: Vital Signs Temp Pulse Resp BP Pulse Ox 02/25/19 12:00 110/63 02/25/19 11:45 114/66 02/25/19 11:30 118/69 02/25/19 11:15 121/69 02/25/19 11:00 119/70 02/25/19 10:45 122/61 02/25/19 10:30 15 123/72 02/25/19 08:15 94 02/25/19 07:26 98.4 F 94 16 132/75 94 02/25/19 02:10 97.9 F 87 16 128/71 95 02/25/19 00:04 97.8 F 100 15 147/78 94 02/24/19 21:56 98.1 F 87 16 146/75 93 02/24/19 21:09 97.8 F 84 16 143/76 92 02/24/19 20:36 97.7 F 85 15 136/71 92 02/24/19 19:48 99.4 F 84 12 126/80 99 02/24/19 19:33 85 12 127/68 100 02/24/19 19:23 99.2 F 82 14 125/65 98 02/24/19 19:13 81 14 121/61 99 02/24/19 19:03 81 14 128/63 99 02/24/19 18:53 98.9 F 84 16 132/63 100 Intake and Output 02/24/19 02/25/19 02/25/19 23:59 07:59 15:59 Intake Total 200 / 1092 300 / 800 500 / 800 Output Total 60 / 1060 820 / 1220 400 / 1220 Balance 140 / 32 -520 / -420 100 / -420 Intake: IV Fluids 200 / 1092 300 / 300 Dextrose 5% 1,000 ML @ 100 mls/ 200 / 992 hr IVC .Q10H PRN Rx#:[id number] Ofirmev 1,000 mg/100 ml 1,000 200 / 200 mg In 100 ml @ 400 mls/hr IVPB Q6HR MATILDE Rx#:[id number] Zosyn 3.375 GM In 0.9 % Sodium 100 / 100 Chloride (Mini-Bag +) 100 ML @ 25 mls/hr IVPB Q12HR MATILDE Rx#: [id number] Oral 0 / 0 Intake, Rinseback and Flushes 500 / 500 Output: Urine 0 / 0 Estimated Blood Loss 50 / 50 Catheter 800 / 1200 400 / 1200 Wound Drainage 0 / 20 Right Lower Abdomen 0 / 20 Other: Meal NPO npo breakfast Blood Glucose* 105 92 Hemodialysis Net Fluid Removed 1008 (mL) - General Appearance General appearance: Present: well-developed, appears started age, cachectic EENT: Present: ATNC, PERRL, mucous membranes moist Neck: Present: supple Respiratory: Present: clear Cardiology: Present: no edema, regular rate, regular rhythm, normal S1, normal S2 Dialysis Vascular Access: Arteriovenous Fistula (Right arm AVF with +thrill/bruit) thrill: Yes bruit: Yes Gastrointestinal: Present: normoactive bowel sounds, no tenderness, no guarding Integumentary: Present: warm and dry Neurologic: Present: no focal deficit, no asterixis, alert and oriented x3 Musculoskeletal: Present: no erythema, no cyanosis Psychiatric: Present: mood/affect appropriate, cooperative - Lab 03/01/19 10:37 03/01/19 06:31 Most recent lab results 02/25/19 04:47 Calcium 9.9 Consult Discharge Plan - Plan Referrals: NONE,PCP [Primary Care Provider] -
--- NOTE | 2019-02-25 15:18 | Internal Med Progress Note ---
Hospitalist Progress Note - Encounter Date of Encounter: 02/25/19 Time of Encounter: 11:00 - Subjective Interval History: Patient is a 68-year-old male with past medical history significant for end- stage renal disease and hyperlipidemia who presented due to abdominal pain secondary to acute perforated appendix in addition to urethral stricture with urinary retention. Patient is postop day 1 ileocecectomy and [id number] anastomosis for acute perforated appendicitis in addition to cystoscopy with dilation of ureteral stricture and suprapubic cystostomy. Patient seen during hemodialysis for end-stage renal disease this morning and did not have any issues or complaints - Exam Vitals: Temp Pulse Resp BP Pulse Ox 98.2 F 103 15 105/65 93 02/25/19 14:33 02/25/19 14:33 02/25/19 14:33 02/25/19 14:33 02/25/19 14:33 Exam: Gen.: Nonacute distress, alert and oriented 3 ENT: Mucosal membranes moist Respiratory: Lungs are clear to auscultation bilaterally without any wheezing rhonchi or rales Cardiovascular: Normal S1 and S2 regular rate rhythm no murmurs rubs or gallops Abdomen: Soft, nontender and nondistended with positive bowel sounds Extremities: No lower extremity edema Skin: Normal color - Assessment and Plan (1) Acute appendicitis Current Visit: Yes Status: Acute Assessment and Plan: Patient presented due to abdominal pain secondary to acute perforated appendix. CT of the abdomen and pelvis done today shows acute perforation and abscess. Patient is postop day 1 ileocecectomy and [id number] anastomosis for acute perforated appendicitis in addition to cystoscopy with dilation of ureteral stricture and suprapubic cystostomy. Will continue IV Zosyn and consult infectious disease for recommendation for antibiotic choice and duration General surgery following with recommendations for nothing by mouth until flatus Appreciate any further recommendations (2) Sepsis Current Visit: Yes Status: Resolved Assessment and Plan: Resolved; continue to monitor (3) Urethral stricture Current Visit: Yes Status: Acute Assessment and Plan: Urology consulted with recommendations for cystoscopy and patient status post dilation of urethral stricture with suprapubic cystostomy Appreciate any further recommendations (4) Hydroureteronephrosis Current Visit: Yes Status: Acute Assessment and Plan: Treated with suprapubic catheter placement as above. (5) ESRD (end stage renal disease) Current Visit: Yes Status: Chronic Assessment and Plan: Nephrology following for dialysis needs (6) HLD (hyperlipidemia) Current Visit: Yes Status: Acute Assessment and Plan: Continue statin DVT Prophylaxis: Heparin subcutaneous - Time Spent with Patient Total time spent is greater than 50% in coordination of care (as documented) at patient's floor/unit and/or counseling patient: Internal Medicine: Result - Labs CBC & Chem 7: 02/25/19 04:47 02/25/19 04:47 Labs: Short CBC 02/25/19 Range/Units 04:47 WBC 13.9 H (4.3-11.1) K/mcL Hgb 10.5 L (12.9-16.9) g/dL Hct 31.9 L (37.5-50.1) % Plt Count 218 (140-400) K/mcL Neutrophils # 12.5 H (1.6-8.9) K/mcL BMP 02/25/19 04:47 Sodium 133 L Potassium 4.6 D Chloride 96 L Carbon Dioxide 21 L BUN 45 H Creatinine 9.06 H Glucose 111 H Calcium 9.9 - ABG Interpretation ABG results: PT/INR, D-dimer PT 12.8 Seconds (9.4-12.1) H 02/21/19 16:27 Consult Discharge Plan - Plan Referrals: NONE,PCP [Primary Care Provider] - (1) Acute appendicitis Qualifiers: Acute appendicitis type: with localized peritonitis Appendicitis gangrene presence: without gangrene Appendicitis perforation presence: with perforation Appendicitis abscess presence: with abscess Qualified Code(s): K35.33 - Acute appendicitis with perforation and localized peritonitis, with abscess (2) Sepsis Qualifiers: Sepsis type: Escherichia coli Qualified Code(s): A41.51 - Sepsis due to Escherichia coli [E. coli] (3) Urethral stricture Qualifiers: Urethral stricture sex-location: male urethra-bulbous Qualified Code(s): N35.812 - Other urethral bulbous stricture, male
[2019-02-25] MEDS: 0.9 % Sodium Chloride 1,000 ML IVC SCH (17:59)
[2019-02-26] MEDS: Piperacillin/Tazobactam 3.375 GM in 0.9 % Sodium Chloride Mini Bag 100 ML IVPB SCH ×2 (05:30→17:26)
[2019-02-26] MEDS: *HR* Heparin 5,000 UNIT/ML VIAL SQ SCH ×2 (05:30→17:26)
[2019-02-26] MEDS: 0.9 % Sodium Chloride 1,000 ML IVC SCH ×2 (05:31→21:18)
[2019-02-26] MEDS: Acetaminophen IV 1,000 MG/100 ML INFUS..BTL IVPB SCH ×2 (05:31→11:55)
--- NOTE | 2019-02-26 08:11 | AcuteCareSurgery Progress Note ---
Date of Encounter: 02/26/19 Time of Encounter: 07:30 - Assessment and Plan (1) Acute appendicitis Current Visit: Yes Status: Acute S/P Ileocectomy for ruptured appendicitis. Advance diet to clears. Add Diflucan IV d/t stable but, not normalizing WBC. Increase activity. PT missed visit yesterday d/t pt in dialysis. However, they will continue to follow. Up to chair and ambulate. Qualifiers: Acute appendicitis type: with localized peritonitis Appendicitis gangrene presence: without gangrene Appendicitis perforation presence: with perforation Appendicitis abscess presence: with abscess Qualified Code(s): K35.33 - Acute appendicitis with perforation and localized peritonitis, with abscess (2) ESRD (end stage renal disease) Current Visit: Yes Status: Chronic (3) Urethral stricture Current Visit: Yes Status: Acute s/p cystoscopy with urethral dilation and hickey placement Qualifiers: Urethral stricture sex-location: male urethra-bulbous Qualified Code(s): N35.812 - Other urethral bulbous stricture, male (4) Urinary retention Current Visit: Yes Status: Acute see above; s/p SP catheter placement Subjective Patient reports: no new complaints, feels better, pain is less, no flatus, no bowel movement, afebrile Objective Vital Signs - Last 8 Hours Temp Pulse Resp BP Pulse Ox 02/26/19 07:55 98.2 F 101 15 137/73 92 02/26/19 04:54 98.0 F 99 17 168/76 94 Intake and Output 02/25/19 02/26/19 02/26/19 23:59 07:59 15:59 Intake Total 300 / 2200 1100 / 1100 Output Total 0 / 3470 1235 / 1235 Balance 300 / -1270 -135 / -135 Intake: IV Fluids 300 / 1700 1100 / 1100 0.9 % Sodium Chloride 1,000 ML 1000 / 1000 @ 75 mls/hr IVC .[id number] MATILDE Rx #:[id number] Ofirmev 1,000 mg/100 ml 1,000 200 / 400 100 / 100 mg In 100 ml @ 400 mls/hr IVPB Q6HR MATILDE Rx#:[id number] Zosyn 3.375 GM In 0.9 % Sodium 100 / 300 Chloride (Mini-Bag +) 100 ML @ 25 mls/hr IVPB Q12HR MATILDE Rx#: [id number] Output: Catheter 1225 / 1225 Wound Drainage Right Lower Abdomen Other: Weight 81.7 kg Blood Glucose* 84 80 Patient Weight 02/26/19 23:59 Weight 81.7 kg - General physical appearance no distress, no pain - Eyes PERRL, normal ocular movement - ENT normal mucosa, no congestion - Neck Neck exam: trachea midline, no venous distension - Respiratory normal respiratory effort, clear to auscultation - Cardiovascular Cardiovascular exam: Present: RRR. Absent: murmurs - Abdomen Abdomen: Present: bowel sounds present, soft, tender (as expected after surgery) Additional Comments: SMITHA with minimal serosanguinous output. SP in place and hickey in place with scant hematuria/bloody sediment. Urine is mostly clear. - Incision Incision: Present: clean and dry, intact - Neurologic CN 2-12 grossly intact, normal coordination - Musculoskeletal normal posture - Psychiatric oriented to time, oriented to person, oriented to place - Labs 02/25/19 04:47 02/25/19 04:47 Consult Discharge Plan - Plan Referrals: NONE,PCP [Primary Care Provider] -
[2019-02-26] MEDS ORDERED: Fluconazole 200 MG/100 ML 200 MG/100 ML BAG IVPB SCH (09:00)
[2019-02-26] MEDS: OXYCODONE Oral CONC 10 MG/0.5 ML ORAL.SYG SL PRN ×2 (09:27→21:17)
--- NOTE | 2019-02-26 09:42 | Internal Med Progress Note ---
Hospitalist Progress Note - Encounter Date of Encounter: 02/26/19 Time of Encounter: 11:00 - Subjective Interval History: Patient is a 68-year-old male with past medical history significant for end- stage renal disease and hyperlipidemia who presented due to abdominal pain secondary to acute perforated appendix in addition to urethral stricture with urinary retention. Patient is postop day 2 ileocecectomy and [id number] anastomosis for acute perforated appendicitis Patient also postop day 2 cystoscopy, dilation urethral stricture, suprapubic cystostomy Due to perforated appendix above with no improvement in leukocytosis, infectious disease was consulted yesterday on 02/25/19 for recommendations for IV antibiotic choice and duration - Exam Vitals: Temp Pulse Resp BP Pulse Ox 98.2 F 101 15 137/73 92 02/26/19 07:55 02/26/19 07:55 02/26/19 07:55 02/26/19 07:55 02/26/19 07:55 Exam: Gen.: Nonacute distress, alert and oriented 3 ENT: Mucosal membranes moist Respiratory: Lungs are clear to auscultation bilaterally without any wheezing rhonchi or rales Cardiovascular: Normal S1 and S2 regular rate rhythm no murmurs rubs or gallops Abdomen: Soft, nontender and nondistended with positive bowel sounds Extremities: No lower extremity edema Skin: Normal color - Assessment and Plan (1) Acute appendicitis Current Visit: Yes Status: Acute Assessment and Plan: Patient presented due to abdominal pain secondary to acute perforated appendix. CT of the abdomen and pelvis done today shows acute perforation and abscess. Patient is postop day 2 ileocecectomy and [id number] anastomosis for acute p erforated appendicitis in addition to cystoscopy with dilation of ureteral stricture and suprapubic cystostomy. Will continue IV Zosyn; Gen. surgery added Diflucan this morning Due to perforated appendix above with no improvement in leukocytosis, infectious disease was consulted yesterday on 02/25/19 for recommendations for IV antibiotic choice and duration General surgery following with recommendations to advance diet to clears (2) Sepsis Current Visit: Yes Status: Acute Assessment and Plan: Resolved; continue to monitor (3) Urethral stricture Current Visit: Yes Status: Acute Assessment and Plan: Urology consulted and patient now postop day 2 cystoscopy with dilation of urethral stricture with suprapubic cystostomy Appreciate any further recommendations (4) Hydroureteronephrosis Current Visit: Yes Status: Acute Assessment and Plan: Treated with suprapubic catheter placement as above. (5) ESRD (end stage renal disease) Current Visit: Yes Status: Chronic Assessment and Plan: Nephrology following for dialysis needs (6) HLD (hyperlipidemia) Current Visit: Yes Status: Acute Assessment and Plan: Continue statin DVT Prophylaxis: Heparin subcutaneous - Time Spent with Patient Total time spent is greater than 50% in coordination of care (as documented) at patient's floor/unit and/or counseling patient: Internal Medicine: Result - Labs CBC & Chem 7: 02/26/19 11:51 02/26/19 09:55 - ABG Interpretation ABG results: PT/INR, D-dimer PT 12.8 Seconds (9.4-12.1) H 02/21/19 16:27 Consult Discharge Plan - Plan Referrals: NONE,PCP [Primary Care Provider] - (1) Acute appendicitis Qualifiers: Acute appendicitis type: with localized peritonitis Appendicitis gangrene presence: without gangrene Appendicitis perforation presence: with perforation Appendicitis abscess presence: with abscess Qualified Code(s): K35.33 - Acute appendicitis with perforation and localized peritonitis, with abscess (2) Sepsis Qualifiers: Sepsis type: Escherichia coli Qualified Code(s): A41.51 - Sepsis due to Escherichia coli [E. coli] (3) Urethral stricture Qualifiers: Urethral stricture sex-location: male urethra-bulbous Qualified Code(s): N35.812 - Other urethral bulbous stricture, male
[2019-02-26 10:29] LABS: Calcium 9.7 mg/dL (8.6-10.3); Potassium 3.7 mEq/L (3.5-5.1)
--- NOTE | 2019-02-26 11:23 | Infectious Disease Consult ---
Infectious Disease-Consult - Encounter Date/Time Date of Encounter: 02/26/19 Time of Encounter: 11:18 - Data of Consult Patient: new to practice Reason for consult: Perforated appendix, antibiotic recommendations Consult date: 02/26/19 Requesting Physician: Gregg Romero Primary Care Provider: PCP NONE - HPI HPI: Mr. Mckeon is a 68-year-old male with past medical history of end-stage renal disease on chronic hemodialysis Saturday, Saturday, and Saturday. The patient was admitted to the hospital 02/21/19 for abdominal pain and acute appendicitis. We are consulted 02/26/19 for further workup and treatment recommendations for perforated appendix and persistent leukocytosis. Briefly, the patient is a 68-year-old male with past medical history as stated above. The patient presented to the emergency department on the day of admission with a 24-hour history of. Umbilical abdominal pain with radiation to the right upper quadrant. He reported associated nausea with vomiting and chills at home. Upon arrival, he was afebrile. He was tachycardic, but was otherwise hemodynamically stable. Laboratory studies revealed leukocytosis with neutrophilic predominance. Lactic acid and LFTs were normal. Creatinine was elevated consistent with his end-stage renal disease. Blood cultures were obtained 2 sets are no growth to date. Had a chest x-ray that showed bibasilar atelectasis. He had a CT of the abdomen and pelvis without contrast that showed findings consistent with acute appendicitis with perforation, but no abscess. There were severe bilateral hydroureteronephrosis with bilateral renal atrophy and a possible left renal mass versus nodule as well as bladder wall thickening consistent with chronic bladder obstruction. He had a gallbladder ultrasound that showed mild thickening of the gallbladder wall with small amount of sludge, but no cholecystitis. He was started. Clear on IV antibiotics and admitted to the hospital for further evaluation. Shortly after admission, the patient became febrile with a temperature of 101.8. He was evaluated by the acute care surgery team who recommended conservative management with IV antibiotics and repeat imaging. Urology was consulted due to urinary retention and inability to place a Aguilar catheter. They performed a suprapubic catheter placement at the bedside. Urinalysis was obtained, but appeared contaminated and the culture was negative. Nephrology was consulted to assist with his hemodialysis management. He had a transthoracic echocardiogram that showed an EF of 65%. The patient continued to have improvement in his white blood cell count, but on 02/24/19 he had worsening of his abdominal pain with some nausea. A repeat CT of the abdomen and pelvis showed a perforated did appendicitis with a small abscess with severe bladder wall thickening consistent with cystitis and bibasilar infiltrates concerning for atelectasis versus pneumonia. He was taken to the operating room 02/24/19 and underwent cystoscopy with dilation of urethral stricture and suprapubic cystostomy by Dr. Metzger and open ileocecectomy with side to side anastomosis by Dr. Irwin. Since surgery, the patient has had persistent leukocytosis, although, a CBC has not been checked today. Currently, the patient is on IV Zosyn. Fluconazole was a dded this morning by the surgical team. We have been asked to evaluate and make further recommendations. During my exam today, the patient endorses a history as stated above. Today, he tells me that overall he feels a little bit better. Continues to report some abdominal distention with discomfort. States he is not currently passing gas. Was started on clear liquids this morning and seems to be tolerating well. Denies fevers, chills, rigors. Denies headache or neck pain. Denies congestio n, earache, or sore throat. Denies nausea, vomiting, or diarrhea. Aguilar and suprapubic catheter remain patent. Denies back, joint, or extremity pain. The patient lives at home independently. He denies tobacco, alcohol, or illicit drug use. He is retired. He denies any recent travel outside the [facility]. - ROS Review of Systems: All systems reviewed and no additional remarkable complaints except as stated. - Results CBC & Chem 7: 02/27/19 06:34 02/27/19 06:34 - Exam Vitals: Temp Pulse Resp BP Pulse Ox 98.3 F 109 16 131/72 92 02/26/19 11:16 02/26/19 11:16 02/26/19 11:16 02/26/19 11:16 02/26/19 11:16 Exam: Head: Atraumatic, normal inspection, normocephalic. Eye: EOMI, PERRLA, no scleral icterus noted. ENT: Mucous membranes moist. No odontogenic infection noted. Neck: Normal inspection, no meningismus. Respiratory: Clear to auscultation. No rales, respiratory distress, rhonchi, or wheezes noted. Cardiovascular: Regular rate and rhythm, S1 and S2 audible. No murmurs, rubs, or gallops. GI: Firm, distended, normal bowel sounds. Midline abdominal incision open to air with sloane intact. Wound edges well approximated without erythema, warmth, or drainage. Expected postop tenderness noted to the entire abdomen. Surgical trocar site noted to the left lower quadrant with sloane intact. Suprapubic catheter and Aguilar catheter draining clear yellow urine. SMITHA drain noted to the right abdomen with sanguinous drainage. Extremities: No joint swelling, pedal edema, or tenderness noted. Back: Normal inspection. No vertebral tenderness noted. Neurological: Alert, oriented 3, no focal deficits. Psychiatric: normal affect, normal mood. Skin: Dry, intact, warm. Normal color. No rashes. Simvastatin 20 mg PO HS 02/21/19 [History] Sodium Bicarbonate 1,300 mg PO BIDWM 02/21/19 [History] Ergocalciferol (VITAMIN D2) [Vitamin D2] 1 cap PO QWEEK 02/23/19 [History] Sensipar PO MOWEFR 02/23/19 [History] Sevelamer [Renvela] 800 mg PO TID 02/23/19 [History] Allergy/AdvReac Type Severity Reaction Status Date / Time No Known Allergies Allergy Verified 02/21/19 18:30 - Assessment and Plan (1) Sepsis Current Visit: Yes Status: Acute The patient had 3 sepsis criteria including tachycardia, leukocytosis, and fever. Likely secondary to acute appendicitis with perforation and intra-abdominal abscess. Improved. Tachycardia improved. Afebrile. Leukocytosis persists, but WBC not checked this morning. Blood cultures drawn 02/21/19 are no growth to date 2 sets. Qualifiers: Sepsis type: Escherichia coli Qualified Code(s): A41.51 - Sepsis due to Escherichia coli [E. coli] SNOMED Code(s): 58383473 (2) Acute appendicitis Current Visit: Yes Status: Acute CT of the abdomen and pelvis 02/21/19 showed acute appendicitis with a single bubble of extraluminal gas adjacent to the appendix suggesting perforation, although there was no definitive abscess. Acute care surgery consult. Opted for conservative therapy initially, but patient's clinical picture worsened. Repeat CT of the abdomen and pelvis 02/24/19 again showed a perforated appendix with interval development of an abscess collection seen in the right lower quadrant along the appendix measuring 2.8 x 1.6 cm with direct continuity of the abscess collection in the perforated wall of the appendix. A small portion of the measured abscess extended superiorly adjacent to the cecum, with cecal wall thickening and inflammatory changes seen surrounding the appendix. Acute care surgery opted to take the patient to the operating room and performed an open ileocecectomy with [id number]-ik-[id number] anastomosis 02/24/[address] Rc Roth. Operative note reviewed. Currently on Zosyn and fluconazole. Qualifiers: Acute appendicitis type: with localized peritonitis Appendicitis gangrene presence: without gangrene Appendicitis perforation presence: with perforation Appendicitis abscess presence: with abscess Qualified Code(s): K35.33 - Acute appendicitis with perforation and localized peritonitis, with abscess SNOMED Code(s): 23937153 (3) Intra-abdominal abscess Current Visit: Yes Status: Acute Secondary to perforated appendicitis. Noted on CT scan completed 02/24/19. Status post open ileocecectomy with vlzf-qt-avrr anastomosis 02/24/19 by . Currently on IV Zosyn and fluconazole. SNOMED Code(s): 88031886 (4) Abdominal pain Current Visit: Yes Status: Acute Likely secondary to perforated appendicitis with abscess and urinary retention. Improved. Pain management per the primary and surgery teams. Qualifiers: Abdominal location: right lower quadrant Qualified Code(s): R10.31 - Right lower quadrant pain SNOMED Code(s): 14903290 (5) Hydroureteronephrosis Current Visit: Yes Status: Acute Likely secondary to chronic bladder outlet obstruction. Noted on CT scan completed 02/21/19. Urology consult it. Unable to pass Aguilar catheter, so bedside suprapubic catheter placement performed . While in the operating room for the perforated appendix, underwent cystoscopy with dilation of urethral stricture and suprapubic cystostomy by Dr. Metzger. SNOMED Code(s): 80510274 (6) Bladder outlet obstruction Current Visit: Yes Status: Acute Secondary to urethral stricture. Status post urethral stricture dilation 02/24/[address] Metzger. SNOMED Code(s): 246730652 (7) Urethral stricture Current Visit: Yes Status: Acute Qualifiers: Urethral stricture sex-location: male urethra-bulbous Qualified Code(s): N35.812 - Other urethral bulbous stricture, male SNOMED Code(s): 06022655 (8) Urinary retention Current Visit: Yes Status: Acute Secondary to urethral stricture and chronic bladder outlet obstruction. Resolved. SNOMED Code(s): 461887818 (9) ESRD (end stage renal disease) Current Visit: Yes Status: Chronic Nephrology consult and following. SNOMED Code(s): 26915195 (10) Hypertension Current Visit: Yes Status: Chronic Qualifiers: Hypertension type: essential hypertension Qualified Code(s): I10 - Essential (primary) hypertension SNOMED Code(s): 39165947 - Recommendations Recommendations: At this point, no concern for additional uncontrolled source of infection or inadequate antibiotic coverage. Persistent leukocytosis yesterday likely secondary to recent surgery. Check CBC stat. Discussed with nursing. Await blood cultures to finalize. Diet, wound care, and postop management per the acute care surgery team. Continue Zosyn 3.375 g IV every 12 hours (dose-adjust for HD status). Continue fluconazole. Will discuss dosing with pharmacy. Duration of treatment depends on the clinical picture. Monitor renal function and does adjust antibiotics and medications for HD status. Past Med Surg Social Fam HX - Past Medical History Medical history: dialysis, renal disease Psychiatric history: no psych history - Past Surgical History Additional surgical history: right arm fistula - Social History Smoking Status: Never smoker Smokeless Tobacco Status: No Alcohol use: none Drug use: none - Family History Father Hx Family Genitourinary Disorders: No (No family history of prostate cancer) Consult Discharge Plan - Plan Referrals: NONE,PCP [Primary Care Provider] - - Attending Attestation I have personally performed a face to face evaluation on this patient. I have reviewed and agree with the care plan. History and Exam by me shows: Assessment and plan: 1.Sepsis secondary to acute appendicitis with perforation 2.Acute appendicitis with perforation 3.Intra-abdominal abscess status post open ileocecectomy with zwqz-zm-coof amita stomosis 02/24/19 by . 4.Ureter nephrosis secondary to bladder outlet obstruction 5.Bladder outlet obstruction 6.Urethral stricture Recommendations At this point, no concern for additional uncontrolled source of infection or inadequate antibiotic coverage. Persistent leukocytosis yesterday likely secondary to recent surgery. Check CBC stat. Discussed with nursing. Await blood cultures to finalize. Diet, wound care, and postop management per the acute care surgery team. Continue Zosyn 3.375 g IV every 12 hours (dose-adjust for HD status). Continue fluconazole. Will discuss dosing with pharmacy. Duration of treatment depends on the clinical picture. Monitor renal function and does adjust antibiotics and medications for HD status.
[2019-02-26 12:27] LABS: Basophils # 0.1 K/mcL (0.0-0.2); Basophils % 0.6 %; Eosinophils # 0.8 K/mcL (0.0-0.6); Eosinophils % 6.6 %; Hematocrit 33.1 % (37.5-50.1); Hemoglobin 10.8 g/dL (12.9-16.9); Immature Granulocytes % 4.2 % (0-4); Lymphocytes % 7.7 %; Mean Corpuscular HGB Conc 32.6 g/dL (31.6-35.5); Mean Corpuscular Hemoglobin 29.6 pg (28.0-33.3); Mean Corpuscular Volume 90.7 fL (83.0-100.0); Mean Platelet Volume 10.2 fL (9.4-12.4); Monocytes % 7.8 %; Neutrophils # 9.1 K/mcL (1.6-8.9); Platelet Count 311 K/mcL (140-400); Red Blood Count 3.65 M/mcL (4.19-5.50); Red Cell Distribution Width 13.4 % (11.5-14.5); Segmented Neutrophils % 73.1 %
--- NOTE | 2019-02-26 13:07 | Nephrology Progress Note ---
Date of Encounter: 02/25/19 Time of Encounter: 11:25 - Assessment and Plan (1) ESRD (end stage renal disease) Current Visit: Yes Status: Chronic ESRD on HD every Saturday/Saturday/Saturday, and so he does not need extra HD today (). Plan for his next dialysis on Saturday, which I've already ordered using the standard orders method of [id number]. My colleague Dr. Graves will be on-call/on-service starting tomorrow. The pt thanked me for stopping by and talking with him. (2) Hydroureteronephrosis Current Visit: Yes Status: Acute Appreciate urology (3) Bladder outlet obstruction Current Visit: Yes Status: Acute Acute on chronic. Appreciate urology (4) Hypertension Current Visit: Yes Status: Chronic Resume home antihypertensive agents. I recommend holding BP meds just before dialysis every M/W/F, if possible, which will allow for smoother treatments and avoidance of intradialytic hypotension. Qualifiers: Hypertension type: essential hypertension Qualified Code(s): I10 - Essential (primary) hypertension Subjective Principal diagnosis: ESRD Interval history: The patient was seen and examined. Reported feeling somewhat tired after his several days in the hospital and surgeries. However, he did not affirm active nausea, vomiting, or diarrhea. We discussed his kidney care for quite some time, and he voiced appreciation for my time. Objective - Vital Signs Vital signs: Vital Signs Temp Pulse Resp BP Pulse Ox 02/26/19 11:16 98.3 F 109 16 131/72 92 02/26/19 07:55 98.2 F 101 15 137/73 92 02/26/19 04:54 98.0 F 99 17 168/76 94 02/25/19 23:44 98.1 F 98 15 126/71 95 02/25/19 20:24 98.2 F 97 16 125/72 95 02/25/19 14:33 98.2 F 103 15 105/65 93 02/25/19 13:55 16 105/8 02/25/19 13:30 106/68 02/25/19 13:15 113/69 Intake and Output 02/25/19 02/26/19 02/26/19 23:59 07:59 15:59 Intake Total 300 / 2200 1100 / 1100 Output Total 0 / 3470 1235 / 1635 400 / 1635 Balance 300 / -1270 -135 / -535 -400 / -535 Intake: IV Fluids 300 / 1700 1100 / 1100 0.9 % Sodium Chloride 1,000 ML 1000 / 1000 @ 75 mls/hr IVC .[id number] [facility] Rx #:[id number] Ofirmev 1,000 mg/100 ml 1,000 200 / 400 100 / 100 mg In 100 ml @ 400 mls/hr IVPB Q6HR [facility] Rx#:[id number] Zosyn 3.375 GM In 0.9 % Sodium 100 / 300 Chloride (Mini-Bag +) 100 ML @ 25 mls/hr IVPB Q12HR [facility] Rx#: [id number] Output: Catheter 1225 / 1625 400 / 1625 Wound Drainage 0 Right Lower Abdomen Other: Meal NPO Weight 81.7 kg Blood Glucose* 84 80 Patient Weight 02/26/19 23:59 Weight 81.7 kg - General Appearance Exam: General appearance: Present: well-developed, appears started age, thin and tall EENT: Present: ATNC, PERRL, mucous membranes moist Neck: Present: supple Respiratory: Present: clear Cardiology: Present: no edema, regular rate, regular rhythm, normal S1, normal S2 Dialysis Vascular Access: Arteriovenous Fistula (Right arm AVF with +thrill/bruit) thrill: Yes bruit: Yes Gastrointestinal: Present: normoactive bowel sounds, no tenderness, no guarding Integumentary: Present: warm and dry Neurologic: Present: no focal deficit, no asterixis, alert and oriented x3 Musculoskeletal: Present: no erythema, no cyanosis Psychiatric: Present: mood/affect appropriate, cooperative - Lab 03/01/19 10:37 03/01/19 06:31 Most recent lab results 02/26/19 09:55 Calcium 9.7 Consult Discharge Plan - Plan Referrals: NONE,PCP [Primary Care Provider] -
[2019-02-26] MEDS ORDERED: Fluconazole 400 MG/200 ML 400 MG/200 ML BAG IVPB ONE (15:00)
[2019-02-26] MEDS: Ondansetron 4 MG/2 ML VIAL IVP PRN (17:35)
[2019-02-27] MEDS: *HR* Metoprolol 5 MG/5 ML VIAL IVP PRN (00:59)
[2019-02-27] MEDS: Ondansetron 4 MG/2 ML VIAL IVP PRN ×2 (01:11→21:11)
[2019-02-27] MEDS: OXYCODONE Oral CONC 10 MG/0.5 ML ORAL.SYG SL PRN ×2 (01:25→21:08)
[2019-02-27] MEDS: Piperacillin/Tazobactam 3.375 GM in 0.9 % Sodium Chloride Mini Bag 100 ML IVPB SCH ×2 (05:47→18:44)
[2019-02-27] MEDS: *HR* Heparin 5,000 UNIT/ML VIAL SQ SCH ×2 (05:47→18:11)
[2019-02-27 06:48] LABS: Basophils # 0.1 K/mcL (0.0-0.2); Basophils % 0.7 %; Eosinophils % 6.9 %; Hematocrit 32.3 % (37.5-50.1); Hemoglobin 10.3 g/dL (12.9-16.9); Immature Granulocytes % 8.7 % (0-4); Lymphocytes # 1.4 K/mcL (0.6-4.6); Lymphocytes % 10.2 %; Mean Corpuscular HGB Conc 31.9 g/dL (31.6-35.5); Mean Corpuscular Hemoglobin 29.3 pg (28.0-33.3); Mean Corpuscular Volume 91.8 fL (83.0-100.0); Mean Platelet Volume 9.9 fL (9.4-12.4); Monocytes % 7.2 %; Neutrophils # 9.2 K/mcL (1.6-8.9); Platelet Count 333 K/mcL (140-400); Red Blood Count 3.52 M/mcL (4.19-5.50); Red Cell Distribution Width 13.8 % (11.5-14.5); Segmented Neutrophils % 66.3 %
[2019-02-27 07:06] LABS: Calcium 10.1 mg/dL (8.6-10.3); Potassium 3.8 mEq/L (3.5-5.1)
[2019-02-27 07:43] LABS: Platelet Estimate Normal (Normal)
--- NOTE | 2019-02-27 09:04 | AcuteCareSurgery Progress Note ---
<Faith Nevarez - Last Filed: 02/27/19 09:01> Date of Encounter: 02/27/19 Time of Encounter: 09:01 - Assessment and Plan (1) Acute appendicitis Current Visit: Yes Status: Acute 68-year-old male with past history significant for chronic renal failure on dialysis admitted to the hospital with CT scan findings concerning for acute appendicitis and phlegmon -Postoperative day #3 from ileocecectomy and qpjg-oe-whrm anastomosis for acute perforated appendicitis. -Patient is doing well this morning, appropriate postsurgical tenderness, no complications -Continue IV antibiotics and IV fluids -Currently on clear liquid diet but reports increased distention and bloating, denies passing gas or having any bowel movements -Continue clears but recommend small sips. Avoid carbonated drinks. -White blood cell count still mildly elevated, Diflucan added yesterday Qualifiers: Acute appendicitis type: with localized peritonitis Appendicitis gangrene presence: without gangrene Appendicitis perforation presence: with perforation Appendicitis abscess presence: with abscess Qualified Code(s): K35.33 - Acute appendicitis with perforation and localized peritonitis, with abscess Subjective Narrative: Patient seen and examined at bedside this morning. No new complaints, denies any flatus or bowel movements at this time. Diet advance to clears, but patient reports increased abdominal distention and bloating. Objective Vital Signs - Last 8 Hours Temp Pulse Resp BP Pulse Ox 02/27/19 06:13 144/81 02/27/19 03:58 98.4 F 86 16 162/87 94 02/27/19 02:52 145/80 02/27/19 01:31 92 Intake and Output 02/26/19 02/27/19 02/27/19 23:59 07:59 15:59 Intake Total 1000 / 2440 100 / 100 Output Total 655 / 2300 40 / 40 Balance 345 / 140 60 / 60 Intake: IV Fluids 1000 / 2200 100 / 100 0.9 % Sodium Chloride 1,000 ML 1000 / 2000 @ 75 mls/hr IVC .[id number] [facility] Rx #:[id number] Zosyn 3.375 GM In 0.9 % Sodium 100 / 100 Chloride (Mini-Bag +) 100 ML @ 25 mls/hr IVPB Q12HR [facility] Rx#: [id number] Output: Catheter 650 / 2275 20 / 20 Wound Drainage 5 / 25 20 / 20 Right Lower Abdomen - General physical appearance well developed, well nourished - Eyes PERRL, normal ocular movement - ENT normal pinna, normal nares - Neck Neck exam: trachea midline, no venous distension - Respiratory normal expansion, normal respiratory effort - Cardiovascular Cardiovascular exam: Present: RRR - Abdomen Additional Comments: Bowel sounds are present, abdomen is soft, but appears bloated - Labs 02/27/19 06:34 02/27/19 06:34 Diabetes panel 02/26/19 02/27/19 Range/Units 09:55 06:34 Sodium 139 138 (136-145) mEq/L Potassium 3.7 3.8 (3.5-5.1) mEq/L Chloride 98 99 (98-107) mEq/L Carbon Dioxide 25 26 (23-29) mEq/L BUN 38 H 52 H (8-23) mg/dL Creatinine 6.88 H 8.05 H (0.70-1.30) mg/dL Glucose 86 102 (70-105) mg/dL Calcium 9.7 10.1 (8.6-10.3) mg/dL Calcium panel 02/26/19 02/27/19 Range/Units 09:55 06:34 Calcium 9.7 10.1 (8.6-10.3) mg/dL Pituitary panel 02/26/19 02/27/19 Range/Units 09:55 06:34 Sodium 139 138 (136-145) mEq/L Potassium 3.7 3.8 (3.5-5.1) mEq/L Chloride 98 99 (98-107) mEq/L Carbon Dioxide 25 26 (23-29) mEq/L BUN 38 H 52 H (8-23) mg/dL Creatinine 6.88 H 8.05 H (0.70-1.30) mg/dL Glucose 86 102 (70-105) mg/dL Calcium 9.7 10.1 (8.6-10.3) mg/dL Adrenal panel 02/26/19 02/27/19 Range/Units 09:55 06:34 Sodium 139 138 (136-145) mEq/L Potassium 3.7 3.8 (3.5-5.1) mEq/L Chloride 98 99 (98-107) mEq/L Carbon Dioxide 25 26 (23-29) mEq/L BUN 38 H 52 H (8-23) mg/dL Creatinine 6.88 H 8.05 H (0.70-1.30) mg/dL Glucose 86 102 (70-105) mg/dL Calcium 9.7 10.1 (8.6-10.3) mg/dL Consult Discharge Plan - Plan Referrals: NONE,PCP [Primary Care Provider] - <Aureliano Lopez - Last Filed: 02/27/19 11:09> Date of Encounter: 02/27/19 Objective Vital Signs - Last 8 Hours Temp Pulse Resp BP Pulse Ox 02/27/19 10:50 116/75 02/27/19 10:35 122/72 02/27/19 10:20 116/81 02/27/19 10:05 126/80 02/27/19 09:50 125/77 02/27/19 09:35 122/77 02/27/19 09:20 133/79 02/27/19 09:05 134/83 02/27/19 08:50 15 133/80 02/27/19 06:13 144/81 02/27/19 03:58 98.4 F 86 16 162/87 94 Intake and Output 02/26/19 02/27/19 02/27/19 23:59 07:59 15:59 Intake Total 1000 / 2440 100 / 600 500 / 600 Output Total 655 / 2300 40 / 40 Balance 345 / 140 60 / 560 500 / 560 Intake: IV Fluids 1000 / 2200 100 / 100 0.9 % Sodium Chloride 1,000 ML 1000 / 2000 @ 75 mls/hr IVC .[id number] [facility] Rx #:[id number] Zosyn 3.375 GM In 0.9 % Sodium 100 / 100 Chloride (Mini-Bag +) 100 ML @ 25 mls/hr IVPB Q12HR [facility] Rx#: [id number] Oral 0 / 0 Intake, Rinseback and Flushes 500 / 500 Output: Catheter 650 / 2275 20 / 20 Wound Drainage Right Lower Abdomen Other: Blood Glucose* 90 Hemodialysis Net Fluid Removed 1334 (mL) - Labs 02/27/19 06:34 02/27/19 06:34 Diabetes panel 02/27/19 Range/Units 06:34 Sodium 138 (136-145) mEq/L Potassium 3.8 (3.5-5.1) mEq/L Chloride 99 (98-107) mEq/L Carbon Dioxide 26 (23-29) mEq/L BUN 52 H (8-23) mg/dL Creatinine 8.05 H (0.70-1.30) mg/dL Glucose 102 (70-105) mg/dL Calcium 10.1 (8.6-10.3) mg/dL Calcium panel 02/27/19 Range/Units 06:34 Calcium 10.1 (8.6-10.3) mg/dL Pituitary panel 02/27/19 Range/Units 06:34 Sodium 138 (136-145) mEq/L Potassium 3.8 (3.5-5.1) mEq/L Chloride 99 (98-107) mEq/L Carbon Dioxide 26 (23-29) mEq/L BUN 52 H (8-23) mg/dL Creatinine 8.05 H (0.70-1.30) mg/dL Glucose 102 (70-105) mg/dL Calcium 10.1 (8.6-10.3) mg/dL Adrenal panel 02/27/19 Range/Units 06:34 Sodium 138 (136-145) mEq/L Potassium 3.8 (3.5-5.1) mEq/L Chloride 99 (98-107) mEq/L Carbon Dioxide 26 (23-29) mEq/L BUN 52 H (8-23) mg/dL Creatinine 8.05 H (0.70-1.30) mg/dL Glucose 102 (70-105) mg/dL Calcium 10.1 (8.6-10.3) mg/dL - Attending Attestation I examined this patient and my medical decision-making was reviewed with the Resident Physician. I agree with the documented findings, disposition and treatment plan as described except to the extent set forth below. The patient is seen and evaluated on acute care surgery rounds with the resident. He has some abdominal bloating with clear liquids. We will maintain clear liquids for now. If he does develop a postoperative ileus, we will place him back on nothing by mouth status. Sips of clear liquids today. Aureliano Lopez MD FACS
--- NOTE | 2019-02-27 10:10 | Infectious Disease Progress No ---
ID Progress Note Date of Encounter: 02/27/19 Time of Encounter: 09:10 - Subjective Subjective: Examination seen and examined in the hemodialysis unit. No acute events noted overnight. Patient states he feels a little bit better today. Denies fevers, chills, rigors. Denies chest pain, shortness of breath, or cough. Denies nausea, but does endorse some reflux with hiccuping. Reports one episode of emesis overnight. Reports some abdominal distention, but denies abdominal pain. Tolerating clear liquid diet well. Aguilar catheter remains patent. Denies oral thrush or skin rashes. - Objective CBC & Chem 7: 02/27/19 06:34 02/27/19 06:34 - Line Documentation Line Documentation: Aguilar Catheter (Draining blood-tinged dark yellow urine.) - Exam Vitals: Temp Pulse Resp BP Pulse Ox 98.4 F 86 16 144/81 94 02/27/19 03:58 02/27/19 03:58 02/27/19 03:58 02/27/19 06:13 02/27/19 03:58 Exam: Head: Atraumatic, normal inspection, normocephalic. Eye: EOMI, PERRLA, no scleral icterus noted. ENT: Mucous membranes moist. No odontogenic infection noted. Neck: Normal inspection, no meningismus. Respiratory: Clear to auscultation. No rales, respiratory distress, rhonchi, or wheezes noted. Cardiovascular: Regular rate and rhythm, S1 and S2 audible. No murmurs, rubs, or gallops. GI: Firm, distended, normal bowel sounds. Midline abdominal incision open to air with sloane intact. Wound edges well approximated without erythema, warmth, or drainage. Expected postop tenderness noted to the entire abdomen, worse in the left lower quadrant. Surgical trocar site noted to the left lower quadrant with sloane intact. Suprapubic catheter clamped and Aguilar catheter draining blood-tinged clear yellow urine. SMITHA drain noted to the right abdomen with sanguinous drainage. Extremities: No joint swelling, pedal edema, or tenderness noted. AV fistula noted to the right upper extremity currently access for hemodialysis. Back: Normal inspection. No vertebral tenderness noted. Neurological: Alert, oriented 3, no focal deficits. Psychiatric: normal affect, normal mood. Skin: Dry, intact, warm. Normal color. No rashes. - Assessment and Plan (1) Sepsis Current Visit: Yes Status: Acute The patient had 3 sepsis criteria including tachycardia, leukocytosis, and fever. Likely secondary to acute appendicitis with perforation and intra-abdominal abscess. Improved. Tachycardia improved. Afebrile. Leukocytosis stable with normal differential. Blood cultures drawn 02/21/19 are no growth to date 2 sets. Qualifiers: Sepsis type: Escherichia coli Qualified Code(s): A41.51 - Sepsis due to Escherichia coli [E. coli] SNOMED Code(s): 98033643 (2) Acute appendicitis Current Visit: Yes Status: Acute CT of the abdomen and pelvis 02/21/19 showed acute appendicitis with a single bubble of extraluminal gas adjacent to the appendix suggesting perforation, although there was no definitive abscess. Acute care surgery consult. Opted for conservative therapy initially, but patient's clinical picture worsened. Repeat CT of the abdomen and pelvis 02/24/19 again showed a perforated appendix with interval development of an abscess collection seen in the right lower quadrant along the appendix measuring 2.8 x 1.6 cm with direct continuity of the abscess collection in the perforated wall of the appendix. A small portion of the measured abscess extended superiorly adjacent to the cecum, with cecal wall thickening and inflammatory changes seen surrounding the appendix. Acute care surgery opted to take the patient to the operating room and performed an open ileocecectomy with mrdx-ya-wqyn anastomosis 02/24/[address] Rc Roth. Operative note reviewed. Currently on Zosyn and fluconazole. Qualifiers: Acute appendicitis type: with localized peritonitis Appendicitis gangrene presence: without gangrene Appendicitis perforation presence: with perforation Appendicitis abscess presence: with abscess Qualified Code(s): K35.33 - Acute appendicitis with perforation and localized peritonitis, with abscess SNOMED Code(s): 24488314 (3) Intra-abdominal abscess Current Visit: Yes Status: Acute Secondary to perforated appendicitis. Noted on CT scan completed 02/24/19. Status post open ileocecectomy with rfiw-fm-bxam anastomosis 02/24/[address] Irwin. Currently on IV Zosyn and fluconazole. SNOMED Code(s): 41037754 (4) Abdominal pain Current Visit: Yes Status: Acute Likely secondary to perforated appendicitis with abscess and urinary retention. Improved. Pain management per the primary and surgery teams. Qualifiers: Abdominal location: right lower quadrant Qualified Code(s): R10.31 - Right lower quadrant pain SNOMED Code(s): 88509809 (5) Hydroureteronephrosis Current Visit: Yes Status: Acute Likely secondary to chronic bladder outlet obstruction. Noted on CT scan completed 02/21/19. Urology consulted. Unable to pass Aguilar catheter, so bedside suprapubic cat heter placement performed . While in the operating room for the perforated appendix, underwent cystoscopy with dilation of urethral stricture and suprapubic cystostomy by Dr. Metzger. SNOMED Code(s): 33480903 (6) Bladder outlet obstruction Current Visit: Yes Status: Acute Secondary to urethral stricture. Status post urethral stricture dilation 02/24/[address] Metzger. SNOMED Code(s): 972741745 (7) Urethral stricture Current Visit: Yes Status: Acute Qualifiers: Urethral stricture sex-location: male urethra-bulbous Qualified Code(s): N35.812 - Other urethral bulbous stricture, male SNOMED Code(s): 37628281 (8) Urinary retention Current Visit: Yes Status: Acute Secondary to urethral stricture and chronic bladder outlet obstruction. Resolved. SNOMED Code(s): 045182768 (9) ESRD (end stage renal disease) Current Visit: Yes Status: Chronic Nephrology consult and following. SNOMED Code(s): 99857044 (10) Hypertension Current Visit: Yes Status: Chronic Qualifiers: Hypertension type: essential hypertension Qualified Code(s): I10 - Essential (primary) hypertension SNOMED Code(s): 46130250 - Recommendations Recommendations: Continue to trend CBC. Await blood cultures to finalize. Diet, wound care, and postop management per the acute care surgery team. Continue Zosyn 3.375 g IV every 12 hours (dose-adjust for HD status). Continue fluconazole. Will ask pharmacy to assist with dosing. Duration of treatment depends on the clinical picture. Monitor renal function and does adjust antibiotics and medications for HD status. Consult Discharge Plan - Plan Referrals: NONE,PCP [Primary Care Provider] - - Attending Attestation I have personally performed a face to face evaluation on this patient. I have reviewed and agree with the care plan. History and Exam by me shows: Assessment and plan: 1.Sepsis secondary to acute appendicitis with perforation 2.Acute appendicitis with perforation 3.Intra-abdominal abscess status post open ileocecectomy with kumm-pr-iyig anastomosis 02/24/19 by . 4.Ureter nephrosis secondary to bladder outlet obstruction 5.Bladder outlet obstruction 6.Urethral stricture Recommendations: Continue to trend CBC. Await blood cultures to finalize. Diet, wound care, and postop management per the acute care surgery team. Continue Zosyn 3.375 g IV every 12 hours (dose-adjust for HD status). Continue fluconazole. Will ask pharmacy to assist with dosing. Duration of treatment depends on the clinical picture. Monitor renal function and does adjust antibiotics and medications for HD status.
[2019-02-27] MEDS: 0.9 % Sodium Chloride 1,000 ML IVC SCH ×2 (13:32→18:38)
[2019-02-27] MEDS: Fluconazole 200 MG/100 ML 200 MG/100 ML BAG IVPB SCH (18:12)
--- NOTE | 2019-02-27 19:32 | Internal Med Progress Note ---
Hospitalist Progress Note - Encounter Date of Encounter: 02/27/19 Time of Encounter: 11:00 - Subjective Interval History: Patient is a 68-year-old male with past medical history significant for end- stage renal disease and hyperlipidemia who presented due to abdominal pain secondary to acute perforated appendix in addition to urethral stricture with urinary retention. Patient is postop day 3 ileocecectomy and xhjh-tq-xpkc anastomosis for acute perforated appendicitis Patient also postop day 3 cystoscopy, dilation urethral stricture, suprapubic cystostomy - Exam Vitals: Temp Pulse Resp BP Pulse Ox 98.4 F 86 15 124/77 94 02/27/19 03:58 02/27/19 03:58 02/27/19 12:25 02/27/19 12:25 02/27/19 03:58 Exam: Gen.: Nonacute distress, alert and oriented 3 ENT: Mucosal membranes moist Respiratory: Lungs are clear to auscultation bilaterally without any wheezing rhonchi or rales Cardiovascular: Normal S1 and S2 regular rate rhythm no murmurs rubs or gallops Abdomen: Soft, nontender and nondistended with positive bowel sounds Extremities: No lower extremity edema Skin: Normal color - Assessment and Plan (1) Acute appendicitis Current Visit: Yes Status: Acute Assessment and Plan: Patient presented due to abdominal pain secondary to acute perforated appendix. CT of the abdomen and pelvis done today shows acute perforation and abscess. Patient is postop day 3 ileocecectomy and pnib-qe-fiju anastomosis for acute perforated appendicitis in addition to cystoscopy with dilation of ureteral stricture and suprapubic cystostomy. Will continue IV Zosyn; Gen. surgery added Diflucan this morning Due to perforated appendix above with no improvement in leukocytosis, infectious disease was consulted for recommendations for IV antibiotic choice and duration General surgery following with recommendations to continue clear diet (2) Sepsis Current Visit: Yes Status: Acute Assessment and Plan: Resolved; continue to monitor (3) Urethral stricture Current Visit: Yes Status: Acute Assessment and Plan: Urology consulted and patient now postop day 3 cystoscopy with dilation of urethral stricture with suprapubic cystostomy Appreciate any further recommendations (4) Hydroureteronephrosis Current Visit: Yes Status: Acute Assessment and Plan: Treated with suprapubic catheter placement as above. (5) ESRD (end stage renal disease) Current Visit: Yes Status: Chronic Assessment and Plan: Nephrology following for dialysis needs (6) HLD (hyperlipidemia) Current Visit: Yes Status: Acute Assessment and Plan: Continue statin DVT Prophylaxis: Heparin subcutaneous - Time Spent with Patient Total time spent is greater than 50% in coordination of care (as documented) at patient's floor/unit and/or counseling patient: Internal Medicine: Result - Labs CBC & Chem 7: 02/27/19 06:34 02/27/19 06:34 Labs: Short CBC 02/27/19 Range/Units 06:34 WBC 13.8 H (4.3-11.1) K/mcL Hgb 10.3 L (12.9-16.9) g/dL Hct 32.3 L (37.5-50.1) % Plt Count 333 (140-400) K/mcL Neutrophils # 9.2 H (1.6-8.9) K/mcL BMP 02/27/19 06:34 Sodium 138 Potassium 3.8 Chloride 99 Carbon Dioxide 26 BUN 52 H Creatinine 8.05 H Glucose 102 Calcium 10.1 - ABG Interpretation ABG results: PT/INR, D-dimer PT 12.8 Seconds (9.4-12.1) H 02/21/19 16:27 Consult Discharge Plan - Plan Referrals: NONE,PCP [Primary Care Provider] - (1) Acute appendicitis Qualifiers: Acute appendicitis type: with localized peritonitis Appendicitis gangrene presence: without gangrene Appendicitis perforation presence: with perforation Appendicitis abscess presence: with abscess Qualified Code(s): K35.33 - Acute appendicitis with perforation and localized peritonitis, with abscess (2) Sepsis Qualifiers: Sepsis type: Escherichia coli Qualified Code(s): A41.51 - Sepsis due to Escherichia coli [E. coli] (3) Urethral stricture Qualifiers: Urethral stricture sex-location: male urethra-bulbous Qualified Code(s): N35.812 - Other urethral bulbous stricture, male
--- NOTE | 2019-02-27 23:16 | Nephrology Progress Note ---
Date of Encounter: 02/27/19 Time of Encounter: 12:00 - Assessment and Plan (1) ESRD (end stage renal disease) Current Visit: Yes Status: Chronic (2) Hydroureteronephrosis Current Visit: Yes Status: Acute (3) Bladder outlet obstruction Current Visit: Yes Status: Acute Subjective Principal diagnosis: ESRD Interval history: Interim noted, pt seen and examined on HD Objective - Vital Signs Vital signs: Vital Signs Temp Pulse Resp BP Pulse Ox 02/27/19 22:31 98.6 F 98 14 125/75 95 02/27/19 20:07 98.6 F 105 15 134/79 95 02/27/19 12:25 15 124/77 02/27/19 11:50 111/69 02/27/19 11:35 113/76 02/27/19 11:20 112/72 02/27/19 11:05 112/73 02/27/19 10:50 116/75 02/27/19 10:35 122/72 02/27/19 10:20 116/81 02/27/19 10:05 126/80 02/27/19 09:50 125/77 02/27/19 09:35 122/77 02/27/19 09:20 133/79 02/27/19 09:05 134/83 02/27/19 08:50 15 133/80 02/27/19 06:13 144/81 02/27/19 03:58 98.4 F 86 16 162/87 94 02/27/19 02:52 145/80 02/27/19 01:31 92 02/27/19 00:45 98.4 F 94 15 173/82 94 Intake and Output 02/27/19 02/27/19 02/27/19 07:59 15:59 23:59 Intake Total 100 / 2140 840 / 2140 1200 / 2140 Output Total 40 / 3550 2860 / 3550 650 / 3550 Balance 60 / -1410 -2020 / -1410 550 / -1410 Intake: IV Fluids 100 / 1400 100 / 1400 1200 / 1400 0.9 % Sodium Chloride 1,000 ML 1000 / 1000 @ 75 mls/hr IVC .[id number] [facility] Rx #:[id number] Diflucan Premix 200 MG/100 ML 100 / 100 200 mg In 100 ml @ 100 mls/hr IVPB MOWEFR@1800 [facility] Rx#: [id number] Zosyn 3.375 GM In 0.9 % Sodium 100 / 300 100 / 300 100 / 300 Chloride (Mini-Bag +) 100 ML @ 25 mls/hr IVPB Q12HR [facility] Rx#: [id number] Oral 240 / 240 0 / 240 Intake, Rinseback and Flushes 500 / 500 Output: Urine 850 / 850 Total Dialysis (HD) Output 1999 / 1999 Catheter 20 / 650 / 670 Wound Drainage 0 30 Right Lower Abdomen 0 30 Other: # Bowel Movements 0 Blood Glucose* 90 Hemodialysis Net Fluid Removed 1500 (mL) - Lab 02/27/19 06:34 02/27/19 06:34 Consult Discharge Plan - Plan Referrals: NONE,PCP [Primary Care Provider] -
[2019-02-28] MEDS: *HR* Promethazine 25 MG/ML VIAL IVP PRN (03:17)
[2019-02-28] MEDS: Piperacillin/Tazobactam 3.375 GM in 0.9 % Sodium Chloride Mini Bag 100 ML IVPB SCH ×2 (05:17→18:20)
[2019-02-28] MEDS: *HR* Heparin 5,000 UNIT/ML VIAL SQ SCH ×2 (05:40→18:21)
[2019-02-28] MEDS: *HR* Metoprolol 5 MG/5 ML VIAL IVP PRN (07:34)
[2019-02-28] MEDS: 0.9 % Sodium Chloride 1,000 ML IVC SCH ×2 (07:38→21:54)
[2019-02-28 07:39] LABS: Hematocrit 30.2 % (37.5-50.1); Hemoglobin 9.8 g/dL (12.9-16.9); Mean Corpuscular HGB Conc 32.5 g/dL (31.6-35.5); Mean Corpuscular Hemoglobin 30.1 pg (28.0-33.3); Mean Corpuscular Volume 92.6 fL (83.0-100.0); Platelet Count 328 K/mcL (140-400); Red Blood Count 3.26 M/mcL (4.19-5.50); Red Cell Distribution Width 13.8 % (11.5-14.5)
[2019-02-28 07:55] LABS: Calcium 10.1 mg/dL (8.6-10.3); Potassium 3.9 mEq/L (3.5-5.1)
[2019-02-28 08:28] LABS: Lymphocytes # 1.5 K/mcL (0.6-4.6); Monocytes # 0.5 K/mcL (0.0-1.3); Neutrophils # 10.7 K/mcL (1.6-8.9)
[2019-02-28 08:29] LABS: Platelet Estimate Normal (Normal)
--- NOTE | 2019-02-28 10:57 | AcuteCareSurgery Progress Note ---
<Faith Nevarez N - Last Filed: 02/28/19 10:55> Date of Encounter: 02/28/19 Time of Encounter: 07:30 - Assessment and Plan (1) Acute appendicitis Current Visit: Yes Status: Acute 68-year-old male with past history significant for chronic renal failure on dialysis admitted to the hospital with CT scan findings concerning for acute appendicitis and phlegmon -Postoperative day #4 from ileocecectomy and dkqg-mz-yxob anastomosis for acute perforated appendicitis. -Patient is doing well this morning, appropriate postsurgical tenderness, no complications -Continue IV antibiotics and IV fluids -We will continue clear liquid diet, unable to obtain PICC line for TPN due to fistula in the right arm. However, patient has bowel sounds present and expect that he will be able to tolerate an increased diet shortly. Qualifiers: Acute appendicitis type: with localized peritonitis Appendicitis gangrene presence: without gangrene Appendicitis perforation presence: with perforation Appendicitis abscess presence: with abscess Qualified Code(s): K35.33 - Acute appendicitis with perforation and localized peritonitis, with abscess Subjective Narrative: Patient seen and examined at bedside this morning. Denies any flatus or bowel movement overnight. Has been tolerating small amounts of is clear liquid diet. He does have bowel sounds present on abdominal examination. Objective Vital Signs - Last 8 Hours Temp Pulse Resp BP Pulse Ox 02/28/19 10:51 98.1 F 96 15 110/67 96 02/28/19 08:15 98.1 F 80 15 120/70 95 02/28/19 03:07 97.9 F 80 15 126/75 95 Intake and Output 02/27/19 02/28/19 02/28/19 23:59 07:59 15:59 Intake Total 1200 / 2140 1000 / 1000 Output Total 650 / 3550 20 / 770 750 / 770 Balance 550 / -1410 980 / 230 -750 / 230 Intake: IV Fluids 1200 / 1400 1000 / 1000 0.9 % Sodium Chloride 1,000 ML 1000 / 1000 1000 / 1000 @ 75 mls/hr IVC .[id number] [facility] Rx #:[id number] Diflucan Premix 200 MG/100 ML 100 / 100 200 mg In 100 ml @ 100 mls/hr IVPB MOWEFR@1800 [facility] Rx#: [id number] Zosyn 3.375 GM In 0.9 % Sodium 100 / 300 Chloride (Mini-Bag +) 100 ML @ 25 mls/hr IVPB Q12HR [facility] Rx#: [id number] Oral 0 / 240 Output: Catheter 650 / 670 750 / 750 Wound Drainage 0 Right Lower Abdomen 0 Other: # Bowel Movements 0 Weight 81.4 kg Patient Weight 02/28/19 23:59 Weight 81.4 kg - General physical appearance well developed, well nourished - Eyes PERRL, normal ocular movement - ENT normal pinna, normal nares - Neck Neck exam: trachea midline, no venous distension - Respiratory normal expansion, normal respiratory effort - Cardiovascular Cardiovascular exam: Present: RRR - Abdomen Abdomen: Present: bowel sounds present, distended - Labs 02/28/19 07:16 02/28/19 07:16 Diabetes panel 02/28/19 Range/Units 07:16 Sodium 138 (136-145) mEq/L Potassium 3.9 (3.5-5.1) mEq/L Chloride 103 (98-107) mEq/L Carbon Dioxide 25 (23-29) mEq/L BUN 38 H (8-23) mg/dL Creatinine 6.30 H (0.70-1.30) mg/dL Glucose 97 (70-105) mg/dL Calcium 10.1 (8.6-10.3) mg/dL Calcium panel 02/28/19 Range/Units 07:16 Calcium 10.1 (8.6-10.3) mg/dL Pituitary panel 02/28/19 Range/Units 07:16 Sodium 138 (136-145) mEq/L Potassium 3.9 (3.5-5.1) mEq/L Chloride 103 (98-107) mEq/L Carbon Dioxide 25 (23-29) mEq/L BUN 38 H (8-23) mg/dL Creatinine 6.30 H (0.70-1.30) mg/dL Glucose 97 (70-105) mg/dL Calcium 10.1 (8.6-10.3) mg/dL Adrenal panel 02/28/19 Range/Units 07:16 Sodium 138 (136-145) mEq/L Potassium 3.9 (3.5-5.1) mEq/L Chloride 103 (98-107) mEq/L Carbon Dioxide 25 (23-29) mEq/L BUN 38 H (8-23) mg/dL Creatinine 6.30 H (0.70-1.30) mg/dL Glucose 97 (70-105) mg/dL Calcium 10.1 (8.6-10.3) mg/dL Consult Discharge Plan - Plan Referrals: NONE,PCP [Primary Care Provider] - <Aureliano Lopez - Last Filed: 02/28/19 12:35> Date of Encounter: 02/28/19 Objective Vital Signs - Last 8 Hours Temp Pulse Resp BP Pulse Ox 02/28/19 10:51 98.1 F 96 15 110/67 96 02/28/19 08:15 98.1 F 80 15 120/70 95 Intake and Output 02/27/19 02/28/19 02/28/19 23:59 07:59 15:59 Intake Total 1200 / 2140 1000 / 1000 Output Total 650 / 3550 20 / 770 750 / 770 Balance 550 / -1410 980 / 230 -750 / 230 Intake: IV Fluids 1200 / 1400 1000 / 1000 0.9 % Sodium Chloride 1,000 ML 1000 / 1000 1000 / 1000 @ 75 mls/hr IVC .[id number] [facility] Rx #:[id number] Diflucan Premix 200 MG/100 ML 100 / 100 200 mg In 100 ml @ 100 mls/hr IVPB MOWEFR@1800 [facility] Rx#: [id number] Zosyn 3.375 GM In 0.9 % Sodium 100 / 300 Chloride (Mini-Bag +) 100 ML @ 25 mls/hr IVPB Q12HR [facility] Rx#: [id number] Oral 0 / 240 Output: Catheter 650 / 670 750 / 750 Wound Drainage 0 / 30 20 / 20 0 / 20 Right Lower Abdomen 0 / 30 20 / 20 0 / 20 Other: # Bowel Movements 0 Weight 81.4 kg Patient Weight 02/28/19 23:59 Weight 81.4 kg - Labs 02/28/19 07:16 02/28/19 07:16 Diabetes panel 02/28/19 Range/Units 07:16 Sodium 138 (136-145) mEq/L Potassium 3.9 (3.5-5.1) mEq/L Chloride 103 (98-107) mEq/L Carbon Dioxide 25 (23-29) mEq/L BUN 38 H (8-23) mg/dL Creatinine 6.30 H (0.70-1.30) mg/dL Glucose 97 (70-105) mg/dL Calcium 10.1 (8.6-10.3) mg/dL Calcium panel 02/28/19 Range/Units 07:16 Calcium 10.1 (8.6-10.3) mg/dL Pituitary panel 02/28/19 Range/Units 07:16 Sodium 138 (136-145) mEq/L Potassium 3.9 (3.5-5.1) mEq/L Chloride 103 (98-107) mEq/L Carbon Dioxide 25 (23-29) mEq/L BUN 38 H (8-23) mg/dL Creatinine 6.30 H (0.70-1.30) mg/dL Glucose 97 (70-105) mg/dL Calcium 10.1 (8.6-10.3) mg/dL Adrenal panel 02/28/19 Range/Units 07:16 Sodium 138 (136-145) mEq/L Potassium 3.9 (3.5-5.1) mEq/L Chloride 103 (98-107) mEq/L Carbon Dioxide 25 (23-29) mEq/L BUN 38 H (8-23) mg/dL Creatinine 6.30 H (0.70-1.30) mg/dL Glucose 97 (70-105) mg/dL Calcium 10.1 (8.6-10.3) mg/dL - Attending Attestation I examined this patient and my medical decision-making was reviewed with the Resident Physician. I agree with the documented findings, disposition and treatment plan as described except to the extent set forth below. The patient is seen and evaluated on morning rounds with the acute care surgery team and the resident. The patient has some mild abdominal distention. He has normal bowel sounds. He had some nausea and vomiting with clear liquids yesterday. We will continue clear liquids today. We will advance diet as soon as he has bowel function Aureliano Lopez MD FACS
--- NOTE | 2019-02-28 11:53 | Nephrology Progress Note ---
Date of Encounter: 02/28/19 Time of Encounter: 12:00 - Assessment and Plan (1) ESRD (end stage renal disease) Current Visit: Yes Status: Chronic s/p Hd yesterday, next HD planned for saturday Lytes stable UOP noted at 850cc in the past 24hrs Continue renal diet (2) Hydroureteronephrosis Current Visit: Yes Status: Acute (3) Bladder outlet obstruction Current Visit: Yes Status: Acute Subjective Principal diagnosis: ESRD Interval history: Pt seen and examined s/p HD yesterday Objective - Vital Signs Vital signs: Vital Signs Temp Pulse Resp BP Pulse Ox 02/28/19 10:51 98.1 F 96 15 110/67 96 02/28/19 08:15 98.1 F 80 15 120/70 95 02/28/19 03:07 97.9 F 80 15 126/75 95 02/27/19 22:31 98.6 F 98 14 125/75 95 02/27/19 20:07 98.6 F 105 15 134/79 95 02/27/19 12:25 15 124/77 Intake and Output 02/27/19 02/28/19 02/28/19 23:59 07:59 15:59 Intake Total 1200 / 2140 1000 / 1000 Output Total 650 / 3550 20 / 770 750 / 770 Balance 550 / -1410 980 / 230 -750 / 230 Intake: IV Fluids 1200 / 1400 1000 / 1000 0.9 % Sodium Chloride 1,000 ML 1000 / 1000 1000 / 1000 @ 75 mls/hr IVC .[id number] [facility] Rx #:[id number] Diflucan Premix 200 MG/100 ML 100 / 100 200 mg In 100 ml @ 100 mls/hr IVPB MOWEFR@1800 [facility] Rx#: [id number] Zosyn 3.375 GM In 0.9 % Sodium 100 / 300 Chloride (Mini-Bag +) 100 ML @ 25 mls/hr IVPB Q12HR [facility] Rx#: [id number] Oral 0 / 240 Output: Catheter 650 / 670 750 / 750 Wound Drainage 0 / 30 20 / 20 0 / 20 Right Lower Abdomen 0 / 30 20 / 20 0 / 20 Other: # Bowel Movements 0 Weight 81.4 kg Patient Weight 02/28/19 23:59 Weight 81.4 kg - Lab 02/28/19 07:16 02/28/19 07:16 Most recent lab results 02/28/19 07:16 Calcium 10.1 Consult Discharge Plan - Plan Referrals: NONE,PCP [Primary Care Provider] -
--- NOTE | 2019-02-28 12:08 | Internal Med Progress Note ---
Hospitalist Progress Note - Encounter Date of Encounter: 02/28/19 Time of Encounter: 11:00 - Subjective Interval History: Patient is a 68-year-old male with past medical history significant for end- stage renal disease and hyperlipidemia who presented due to abdominal pain secondary to acute perforated appendix in addition to urethral stricture with urinary retention. Patient is postop day 4 ileocecectomy and [id number]-vw-[id number] anastomosis for acute perforated appendicitis Patient also postop day 4 cystoscopy, dilation urethral stricture, suprapubic cystostomy - Exam Vitals: Temp Pulse Resp BP Pulse Ox 98.1 F 96 15 110/67 96 02/28/19 10:51 02/28/19 10:51 02/28/19 10:51 02/28/19 10:51 02/28/19 10:51 Exam: Gen.: Nonacute distress, alert and oriented 3 ENT: Mucosal membranes moist Respiratory: Lungs are clear to auscultation bilaterally without any wheezing rhonchi or rales Cardiovascular: Normal S1 and S2 regular rate rhythm no murmurs rubs or gallops Abdomen: Soft, nontender and nondistended with positive bowel sounds Extremities: No lower extremity edema Skin: Normal color - Assessment and Plan (1) Acute appendicitis Current Visit: Yes Status: Acute Assessment and Plan: Patient presented due to abdominal pain secondary to acute perforated appendix. CT of the abdomen and pelvis done today shows acute perforation and abscess. Patient is postop day 3 ileocecectomy and ukeo-my-jprs anastomosis for acute perforated appendicitis in addition to cystoscopy with dilation of ureteral stricture and suprapubic cystostomy. Will continue IV Zosyn; Gen. surgery added Diflucan this morning Due to perforated appendix above with no improvement in leukocytosis, infectious disease was consulted for recommendations for IV antibiotic choice and duration General surgery following with recommendations to continue clear diet; anticipating to advance diet soon per surgery (2) Sepsis Current Visit: Yes Status: Acute Assessment and Plan: Resolved; continue to monitor (3) Urethral stricture Current Visit: Yes Status: Acute Assessment and Plan: Urology consulted and patient now postop day 4 cystoscopy with dilation of urethral stricture with suprapubic cystostomy Appreciate any further recommendations (4) Hydroureteronephrosis Current Visit: Yes Status: Acute Assessment and Plan: Treated with suprapubic catheter placement as above. (5) ESRD (end stage renal disease) Current Visit: Yes Status: Chronic Assessment and Plan: Nephrology following for dialysis needs (6) HLD (hyperlipidemia) Current Visit: Yes Status: Acute Assessment and Plan: Continue statin DVT Prophylaxis: Heparin subcutaneous - Time Spent with Patient Total time spent is greater than 50% in coordination of care (as documented) at patient's floor/unit and/or counseling patient: Internal Medicine: Result - Labs CBC & Chem 7: 02/28/19 07:16 02/28/19 07:16 Labs: Short CBC 02/28/19 Range/Units 07:16 WBC 12.7 H (4.3-11.1) K/mcL Hgb 9.8 L (12.9-16.9) g/dL Hct 30.2 L (37.5-50.1) % Plt Count 328 (140-400) K/mcL Neutrophils # 10.7 H (1.6-8.9) K/mcL BMP 02/28/19 07:16 Sodium 138 Potassium 3.9 Chloride 103 Carbon Dioxide 25 BUN 38 H Creatinine 6.30 H Glucose 97 Calcium 10.1 - ABG Interpretation ABG results: PT/INR, D-dimer PT 12.8 Seconds (9.4-12.1) H 02/21/19 16:27 Consult Discharge Plan - Plan Referrals: NONE,PCP [Primary Care Provider] - (1) Acute appendicitis Qualifiers: Acute appendicitis type: with localized peritonitis Appendicitis gangrene presence: without gangrene Appendicitis perforation presence: with perforation Appendicitis abscess presence: with abscess Qualified Code(s): K35.33 - Acute appendicitis with perforation and localized peritonitis, with abscess (2) Sepsis Qualifiers: Sepsis type: Escherichia coli Qualified Code(s): A41.51 - Sepsis due to Escherichia coli [E. coli] (3) Urethral stricture Qualifiers: Urethral stricture sex-location: male urethra-bulbous Qualified Code(s): N35.812 - Other urethral bulbous stricture, male
[2019-02-28] MEDS: Fluconazole 200 MG/100 ML 100 MG/50 ML BAG IVPB SCH (19:02)
[2019-02-28] MEDS: Acetaminophen 325 MG TABLET PO PRN (21:55)
[2019-03-01] MEDS: *HR* Heparin 5,000 UNIT/ML VIAL SQ SCH ×2 (05:41→18:20)
[2019-03-01] MEDS: Piperacillin/Tazobactam 3.375 GM in 0.9 % Sodium Chloride Mini Bag 100 ML IVPB SCH ×2 (05:42→18:23)
[2019-03-01 07:07] LABS: Potassium 3.7 mEq/L (3.5-5.1)
[2019-03-01] MEDS: OXYCODONE Oral CONC 10 MG/0.5 ML ORAL.SYG SL PRN ×2 (08:06→16:04)
--- NOTE | 2019-03-01 08:25 | AcuteCareSurgery Progress Note ---
<Faith Nevarez - Last Filed: 03/01/19 08:21> Date of Encounter: 03/01/19 Time of Encounter: 08:21 - Assessment and Plan (1) Acute appendicitis Current Visit: Yes Status: Acute 68-year-old male with past history significant for chronic renal failure on dialysis admitted to the hospital with CT scan findings concerning for acute appendicitis and phlegmon -Postoperative day #5 from ileocecectomy and shqy-us-ixdv anastomosis for acute perforated appendicitis. -Continues to have evidence for postoperative ileus, is tolerating minimal amounts of clear liquid diet but denies passing gas and having bowel movements -Continue IV antibiotics and IV fluids -We will maintain clear liquid diet for now, we will closely monitor the patient. Once he has flatus we will try to advance diet to provide nutrition. -Cannot place a PICC line due to AV fistula to start TPN at this time; however, hopeful the patient's diet will be advanced. Qualifiers: Acute appendicitis type: with localized peritonitis Appendicitis gangrene presence: without gangrene Appendicitis perforation presence: with perforation Appendicitis abscess presence: with abscess Qualified Code(s): K35.33 - Acute appendicitis with perforation and localized peritonitis, with abscess Subjective Narrative: Patient seen and examined at bedside this morning. He states he tolerated minimal amounts of water over the previous day. Denies any nausea or vomiting over the past 24 hours, but denies any bowel movements or passing gas. Objective Vital Signs - Last 8 Hours Temp Pulse Resp BP Pulse Ox 03/01/19 07:24 98.5 F 91 15 151/79 94 03/01/19 04:30 98.0 F 91 16 140/77 96 Intake and Output 02/28/19 03/01/19 03/01/19 23:59 07:59 15:59 Intake Total 1720 / 3040 100 / 100 Output Total 670 / 1475 300 / 300 Balance 1050 / 1565 -200 / -200 Intake: IV Fluids 1100 / 2200 0.9 % Sodium Chloride 1,000 ML 1000 / 2000 @ 75 mls/hr IVC .[id number] [facility] Rx #:[id number] Zosyn 3.375 GM In 0.9 % Sodium 100 / 200 Chloride (Mini-Bag +) 100 ML @ 25 mls/hr IVPB Q12HR [facility] Rx#: [id number] Oral 620 / 840 100 / 100 Output: Catheter 650 / 1400 300 / 300 Wound Drainage 0 / 0 Right Lower Abdomen 0 / 0 Other: Meal Dinner Percent of Meal Consumed 0% Weight 82.3 kg Patient Weight 03/01/19 23:59 Weight 82.3 kg - General physical appearance well developed, well nourished - Eyes PERRL, normal ocular movement - ENT normal pinna - Neck Neck exam: trachea midline, no venous distension - Respiratory normal expansion, normal respiratory effort - Cardiovascular Cardiovascular exam: Present: RRR - Labs 02/28/19 07:16 03/01/19 06:31 Diabetes panel 03/01/19 Range/Units 06:31 Sodium 140 (136-145) mEq/L Potassium 3.7 (3.5-5.1) mEq/L Chloride 104 (98-107) mEq/L Carbon Dioxide 23 (23-29) mEq/L BUN 46 H (8-23) mg/dL Creatinine 7.90 H (0.70-1.30) mg/dL Glucose 93 (70-105) mg/dL Calcium 10.0 (8.6-10.3) mg/dL Calcium panel 03/01/19 Range/Units 06:31 Calcium 10.0 (8.6-10.3) mg/dL Pituitary panel 03/01/19 Range/Units 06:31 Sodium 140 (136-145) mEq/L Potassium 3.7 (3.5-5.1) mEq/L Chloride 104 (98-107) mEq/L Carbon Dioxide 23 (23-29) mEq/L BUN 46 H (8-23) mg/dL Creatinine 7.90 H (0.70-1.30) mg/dL Glucose 93 (70-105) mg/dL Calcium 10.0 (8.6-10.3) mg/dL Adrenal panel 03/01/19 Range/Units 06:31 Sodium 140 (136-145) mEq/L Potassium 3.7 (3.5-5.1) mEq/L Chloride 104 (98-107) mEq/L Carbon Dioxide 23 (23-29) mEq/L BUN 46 H (8-23) mg/dL Creatinine 7.90 H (0.70-1.30) mg/dL Glucose 93 (70-105) mg/dL Calcium 10.0 (8.6-10.3) mg/dL Consult Discharge Plan - Plan Referrals: NONE,PCP [Primary Care Provider] - <Adriel Hogan - Last Filed: 03/01/19 09:01> Date of Encounter: 03/01/19 - Assessment and Plan (1) Acute appendicitis Current Visit: Yes Status: Acute Qualifiers: Acute appendicitis type: with localized peritonitis Appendicitis gangrene presence: without gangrene Appendicitis perforation presence: with perforation Appendicitis abscess presence: with abscess Qualified Code(s): K35.33 - Acute appendicitis with perforation and localized peritonitis, with abscess (2) ESRD (end stage renal disease) Current Visit: Yes Status: Chronic (3) Urethral stricture Current Visit: Yes Status: Acute Qualifiers: Urethral stricture sex-location: male urethra-bulbous Qualified Code(s): N35.812 - Other urethral bulbous stricture, male (4) Urinary retention Current Visit: Yes Status: Acute Objective Vital Signs - Last 8 Hours Temp Pulse Resp BP Pulse Ox 03/01/19 07:24 98.5 F 91 15 151/79 94 03/01/19 04:30 98.0 F 91 16 140/77 96 Intake and Output 02/28/19 03/01/19 03/01/19 23:59 07:59 15:59 Intake Total 1720 / 3040 100 / 100 Output Total 670 / 1475 300 / 300 Balance 1050 / 1565 -200 / -200 Intake: IV Fluids 1100 / 2200 0.9 % Sodium Chloride 1,000 ML 1000 / 2000 @ 75 mls/hr IVC .[id number] [facility] Rx #:[id number] Zosyn 3.375 GM In 0.9 % Sodium 100 / 200 Chloride (Mini-Bag +) 100 ML @ 25 mls/hr IVPB Q12HR [facility] Rx#: [id number] Oral 620 / 840 100 / 100 Output: Catheter 650 / 1400 300 / 300 Wound Drainage 20 / 75 0 / 0 Right Lower Abdomen 20 / 75 0 / 0 Other: Meal Dinner Percent of Meal Consumed 0% Weight 82.3 kg Patient Weight 03/01/19 23:59 Weight 82.3 kg - Labs 02/28/19 07:16 03/01/19 06:31 Diabetes panel 03/01/19 Range/Units 06:31 Sodium 140 (136-145) mEq/L Potassium 3.7 (3.5-5.1) mEq/L Chloride 104 (98-107) mEq/L Carbon Dioxide 23 (23-29) mEq/L BUN 46 H (8-23) mg/dL Creatinine 7.90 H (0.70-1.30) mg/dL Glucose 93 (70-105) mg/dL Calcium 10.0 (8.6-10.3) mg/dL Calcium panel 03/01/19 Range/Units 06:31 Calcium 10.0 (8.6-10.3) mg/dL Pituitary panel 03/01/19 Range/Units 06:31 Sodium 140 (136-145) mEq/L Potassium 3.7 (3.5-5.1) mEq/L Chloride 104 (98-107) mEq/L Carbon Dioxide 23 (23-29) mEq/L BUN 46 H (8-23) mg/dL Creatinine 7.90 H (0.70-1.30) mg/dL Glucose 93 (70-105) mg/dL Calcium 10.0 (8.6-10.3) mg/dL Adrenal panel 03/01/19 Range/Units 06:31 Sodium 140 (136-145) mEq/L Potassium 3.7 (3.5-5.1) mEq/L Chloride 104 (98-107) mEq/L Carbon Dioxide 23 (23-29) mEq/L BUN 46 H (8-23) mg/dL Creatinine 7.90 H (0.70-1.30) mg/dL Glucose 93 (70-105) mg/dL Calcium 10.0 (8.6-10.3) mg/dL - Attending Attestation I examined this patient and my medical decision-making was reviewed with the Resident Physician. I agree with the documented findings, disposition and treatment plan as described except to the extent set forth below.
--- NOTE | 2019-03-01 10:05 | Internal Med Progress Note ---
Hospitalist Progress Note - Encounter Date of Encounter: 03/01/19 Time of Encounter: 11:00 - Subjective Interval History: Patient is a 68-year-old male with past medical history significant for end- stage renal disease and hyperlipidemia who presented due to abdominal pain secondary to acute perforated appendix in addition to urethral stricture with urinary retention. Patient is postop day 5 ileocecectomy and [id number]-[id number] anastomosis for acute perforated appendicitis Patient also postop day 5 cystoscopy, dilation urethral stricture, suprapubic cystostomy Today, surgery with recommendations to continue patient on clear diet and will advance once patient has flatus - Exam Vitals: Temp Pulse Resp BP Pulse Ox 98.5 F 91 15 151/79 94 03/01/19 07:24 03/01/19 07:24 03/01/19 07:24 03/01/19 07:24 03/01/19 07:24 Exam: Gen.: Nonacute distress, alert and oriented 3 ENT: Mucosal membranes moist Respiratory: Lungs are clear to auscultation bilaterally without any wheezing rhonchi or rales Cardiovascular: Normal S1 and S2 regular rate rhythm no murmurs rubs or gallops Abdomen: Soft, nontender and nondistended with positive bowel sounds Extremities: No lower extremity edema Skin: Normal color - Assessment and Plan (1) Acute appendicitis Current Visit: Yes Status: Acute Assessment and Plan: Patient presented due to abdominal pain secondary to acute perforated appendix. CT of the abdomen and pelvis done today shows acute perforation and abscess. Patient is postop day 4 ileocecectomy and pvql-oc-[id number] anastomosis for acute perforated appendicitis in addition to cystoscopy with dilation of ureteral stricture and suprapubic cystostomy. Will continue IV Zosyn and IV Diflucan General surgery following with recommendations to continue clear diet until patient has flatus (2) Urethral stricture Current Visit: Yes Status: Acute Assessment and Plan: Urology consulted and patient now postop day 5 cystoscopy with dilation of urethral stricture with suprapubic cystostomy Appreciate any further recommendations (3) Sepsis Current Visit: Yes Status: Resolved Assessment and Plan: Resolved; continue to monitor (4) Hydroureteronephrosis Current Visit: Yes Status: Acute Assessment and Plan: Treated with suprapubic catheter placement as above. (5) ESRD (end stage renal disease) Current Visit: Yes Status: Chronic Assessment and Plan: Nephrology following for dialysis needs (6) HLD (hyperlipidemia) Current Visit: Yes Status: Acute Assessment and Plan: Continue statin DVT Prophylaxis: Heparin subcutaneous - Time Spent with Patient Total time spent is greater than 50% in coordination of care (as documented) at patient's floor/unit and/or counseling patient: Internal Medicine: Result - Labs CBC & Chem 7: 03/01/19 10:37 03/01/19 06:31 Labs: BMP 03/01/19 06:31 Sodium 140 Potassium 3.7 Chloride 104 Carbon Dioxide 23 BUN 46 H Creatinine 7.90 H Glucose 93 Calcium 10.0 - ABG Interpretation ABG results: PT/INR, D-dimer PT 12.8 Seconds (9.4-12.1) H 02/21/19 16:27 Consult Discharge Plan - Plan Referrals: NONE,PCP [Primary Care Provider] - (1) Acute appendicitis Qualifiers: Acute appendicitis type: with localized peritonitis Appendicitis gangrene presence: without gangrene Appendicitis perforation presence: with perforation Appendicitis abscess presence: with abscess Qualified Code(s): K35.33 - Acute appendicitis with perforation and localized peritonitis, with abscess (2) Urethral stricture Qualifiers: Urethral stricture sex-location: male urethra-bulbous Qualified Code(s): N35.812 - Other urethral bulbous stricture, male (3) Sepsis Qualifiers: Sepsis type: Escherichia coli Qualified Code(s): A41.51 - Sepsis due to Escherichia coli [E. coli]
[2019-03-01 10:50] LABS: Hematocrit 31.5 % (37.5-50.1); Hemoglobin 10.1 g/dL (12.9-16.9); Mean Corpuscular HGB Conc 32.1 g/dL (31.6-35.5); Mean Corpuscular Hemoglobin 29.5 pg (28.0-33.3); Mean Corpuscular Volume 92.1 fL (83.0-100.0); Mean Platelet Volume 9.7 fL (9.4-12.4); Platelet Count 364 K/mcL (140-400); Red Blood Count 3.42 M/mcL (4.19-5.50); Red Cell Distribution Width 13.9 % (11.5-14.5)
[2019-03-01 11:05] LABS: Eosinophils # 0.9 K/mcL (0.0-0.6); Lymphocytes # 1.2 K/mcL (0.6-4.6); Monocytes # 1.2 K/mcL (0.0-1.3); Platelet Estimate Normal (Normal)
--- NOTE | 2019-03-01 11:14 | Urology Progress Note ---
Date of Encounter: 03/01/19 Time of Encounter: 11:12 - Assessment and Plan (1) Bladder outlet obstruction Current Visit: Yes Status: Acute Assessment and plan: Secondary to urethral stricture. Suprapubic catheter placed as well as dilation of urethra with placement of urethral Aguilar. Plan: Discharge patient to home with both suprapubic catheter and urethral Aguilar in place. Only one catheter needs gravity drainage the other can be plugged. Our office will arrange for outpatient follow-up within 1-2 weeks of hospital discharge. (2) Urethral stricture Current Visit: Yes Status: Acute Qualifiers: Urethral stricture sex-location: male urethra-bulbous Qualified Code(s): N35.812 - Other urethral bulbous stricture, male Progress Note Subjective: no new complaints Objective Initial Vital Signs Temp Pulse Resp BP Pulse Ox 98.6 F 125 18 152/78 97 02/21/19 16:13 02/21/19 16:13 02/21/19 16:13 02/21/19 16:13 02/21/19 16:13 - General physical appearance Present: no distress - Respiratory Present: normal respiratory effort - Genitourinary Present: other (Aguilar catheter and suprapubic catheters in place) - Psychiatric Present: oriented to time, oriented to person, oriented to place - Labs 03/01/19 10:37 03/01/19 06:31 Diabetes panel 03/01/19 Range/Units 06:31 Sodium 140 (136-145) mEq/L Potassium 3.7 (3.5-5.1) mEq/L Chloride 104 (98-107) mEq/L Carbon Dioxide 23 (23-29) mEq/L BUN 46 H (8-23) mg/dL Creatinine 7.90 H (0.70-1.30) mg/dL Glucose 93 (70-105) mg/dL Calcium 10.0 (8.6-10.3) mg/dL Calcium panel 03/01/19 Range/Units 06:31 Calcium 10.0 (8.6-10.3) mg/dL Pituitary panel 03/01/19 Range/Units 06:31 Sodium 140 (136-145) mEq/L Potassium 3.7 (3.5-5.1) mEq/L Chloride 104 (98-107) mEq/L Carbon Dioxide 23 (23-29) mEq/L BUN 46 H (8-23) mg/dL Creatinine 7.90 H (0.70-1.30) mg/dL Glucose 93 (70-105) mg/dL Calcium 10.0 (8.6-10.3) mg/dL Adrenal panel 03/01/19 Range/Units 06:31 Sodium 140 (136-145) mEq/L Potassium 3.7 (3.5-5.1) mEq/L Chloride 104 (98-107) mEq/L Carbon Dioxide 23 (23-29) mEq/L BUN 46 H (8-23) mg/dL Creatinine 7.90 H (0.70-1.30) mg/dL Glucose 93 (70-105) mg/dL Calcium 10.0 (8.6-10.3) mg/dL Consult Discharge Plan - Plan Referrals: NONE,PCP [Primary Care Provider] -
[2019-03-01] MEDS: 0.9 % Sodium Chloride 1,000 ML IVC SCH (16:05)
[2019-03-01] MEDS: Fluconazole 200 MG/100 ML 100 MG/50 ML BAG IVPB SCH ×2 (18:24→19:45)
[2019-03-01] MEDS: Ondansetron 4 MG/2 ML VIAL IVP PRN (18:41)
--- NOTE | 2019-03-01 23:36 | Nephrology Progress Note ---
Date of Encounter: 03/01/19 - Assessment and Plan (1) ESRD (end stage renal disease) Current Visit: Yes Status: Chronic (2) Hydroureteronephrosis Current Visit: Yes Status: Acute (3) Bladder outlet obstruction Current Visit: Yes Status: Acute (4) Hypertension Current Visit: Yes Status: Chronic Qualifiers: Hypertension type: essential hypertension Qualified Code(s): I10 - Essential (primary) hypertension Subjective Principal diagnosis: ESRD Interval history: Pt seen and examined s/p HD yesterday Objective - Vital Signs Vital signs: Vital Signs Temp Pulse Resp BP Pulse Ox 03/01/19 18:53 98.1 F 94 15 132/71 96 03/01/19 16:09 97.7 F 90 15 152/80 94 03/01/19 10:25 98.1 F 101 15 123/75 96 03/01/19 07:24 98.5 F 91 15 151/79 94 03/01/19 04:30 98.0 F 91 16 140/77 96 Intake and Output 03/01/19 03/01/19 03/01/19 07:59 15:59 23:59 Intake Total 100 / 1990 1840 / 1990 50 / 1990 Output Total 300 / 1540 620 / 1540 620 / 1540 Balance -200 / 450 1220 / 450 -570 / 450 Intake: IV Fluids 1100 / 1150 50 / 1150 0.9 % Sodium Chloride 1,000 ML 1000 / 1000 @ 75 mls/hr IVC .[id number] [facility] Rx #:[id number] Diflucan Premix 200 MG/100 ML 50 / 50 100 mg In 50 ml @ 50 mls/hr IVPB SuTuThSa@1800 [facility] Rx#: [id number] Zosyn 3.375 GM In 0.9 % Sodium 100 / 100 Chloride (Mini-Bag +) 100 ML @ 25 mls/hr IVPB Q12HR [facility] Rx#: [id number] Oral 100 / 840 740 / 840 0 / 840 Output: Catheter 300 / 1400 550 / 1400 550 / 1400 Wound Drainage 0 / 140 70 / 140 70 / 140 Right Lower Abdomen 0 / 140 70 / 140 70 / 140 Other: Meal CLEARS Percent of Meal Consumed 0% Weight 82.3 kg Patient Weight 03/01/19 23:59 Weight 82.3 kg - Lab 03/01/19 10:37 03/01/19 06:31 Consult Discharge Plan - Plan Referrals: NONE,PCP [Primary Care Provider] -
[2019-03-02 05:06] LABS: Calcium 9.8 mg/dL (8.6-10.3); Potassium 3.6 mEq/L (3.5-5.1)
[2019-03-02] MEDS: *HR* Heparin 5,000 UNIT/ML VIAL SQ SCH ×2 (05:27→17:37)
[2019-03-02] MEDS: Piperacillin/Tazobactam 3.375 GM in 0.9 % Sodium Chloride Mini Bag 100 ML IVPB SCH ×2 (05:28→17:36)
[2019-03-02] MEDS ORDERED: 0.9 % Sodium Chloride 250 ML IVC PRN (08:27)
[2019-03-02] MEDS ORDERED: *HR* Heparin 10,000 UNIT/10 ML VIAL IV PRN (08:27)
--- NOTE | 2019-03-02 09:13 | AcuteCareSurgery Progress Note ---
Date of Encounter: 03/02/19 Time of Encounter: 07:30 - Assessment and Plan (1) Acute appendicitis Current Visit: Yes Status: Acute S/P Ileocectomy for ruptured appendicitis. Advance diet to full liquids. CBC pending. Increase activity. Consult behavioral health case manager for DC planning. Qualifiers: Acute appendicitis type: with localized peritonitis Appendicitis gangrene presence: without gangrene Appendicitis perforation presence: with perforation Appendicitis abscess presence: with abscess Qualified Code(s): K35.33 - Acute appendicitis with perforation and localized peritonitis, with abscess (2) ESRD (end stage renal disease) Current Visit: Yes Status: Chronic (3) Urethral stricture Current Visit: Yes Status: Acute s/p cystoscopy with urethral dilation and hickey placement Qualifiers: Urethral stricture sex-location: male urethra-bulbous Qualified Code(s): N35.812 - Other urethral bulbous stricture, male (4) Urinary retention Current Visit: Yes Status: Acute see above; s/p SP catheter placement Subjective Patient reports: no new complaints, feels better, pain is less, tolerating liquids well, flatus, no bowel movement (no further nausea) Objective Vital Signs - Last 8 Hours Temp Pulse Resp BP Pulse Ox 03/02/19 07:43 97.8 F 92 13 139/79 95 03/02/19 02:52 97.5 F L 90 15 158/75 96 Intake and Output 03/01/19 03/02/19 03/02/19 23:59 07:59 15:59 Intake Total 1990 300 / 300 Output Total 620 / 1540 910 / 910 Balance -570 / 450 -610 / -610 Intake: IV Fluids 50 / 1150 100 / 100 Diflucan Premix 200 MG/100 ML 50 / 50 100 mg In 50 ml @ 50 mls/hr IVPB SuTuThSa@1800 [facility] Rx#: [id number] Zosyn 3.375 GM In 0.9 % Sodium 100 / 100 Chloride (Mini-Bag +) 100 ML @ 25 mls/hr IVPB Q12HR [facility] Rx#: [id number] Oral 0 / 840 200 / 200 Output: Catheter 550 / 1400 830 / 830 Urethral (Hickey) 300 / 300 Wound Drainage 70 / 140 80 / 80 Right Lower Abdomen 70 / 140 80 / 80 - General physical appearance no distress, no pain (much improved) - ENT normal mucosa, no congestion - Respiratory normal respiratory effort, clear to auscultation - Cardiovascular Cardiovascular exam: Present: RRR - Abdomen Abdomen: Present: bowel sounds present, soft, tender (minimal post-op) Additional Comments: SMITHA with serous fluid. SP and hickey in place. - Incision Incision: Present: clean and dry, intact - Neurologic CN 2-12 grossly intact, normal coordination - Musculoskeletal normal posture - Psychiatric oriented to time, oriented to person, oriented to place - Labs 03/01/19 10:37 03/02/19 04:33 Diabetes panel 03/02/19 Range/Units 04:33 Sodium 137 (136-145) mEq/L Potassium 3.6 (3.5-5.1) mEq/L Chloride 107 (98-107) mEq/L Carbon Dioxide 22 L (23-29) mEq/L BUN 55 H (8-23) mg/dL Creatinine 8.72 H (0.70-1.30) mg/dL Glucose 90 (70-105) mg/dL Calcium 9.8 (8.6-10.3) mg/dL Calcium panel 03/02/19 Range/Units 04:33 Calcium 9.8 (8.6-10.3) mg/dL Pituitary panel 03/02/19 Range/Units 04:33 Sodium 137 (136-145) mEq/L Potassium 3.6 (3.5-5.1) mEq/L Chloride 107 (98-107) mEq/L Carbon Dioxide 22 L (23-29) mEq/L BUN 55 H (8-23) mg/dL Creatinine 8.72 H (0.70-1.30) mg/dL Glucose 90 (70-105) mg/dL Calcium 9.8 (8.6-10.3) mg/dL Adrenal panel 03/02/19 Range/Units 04:33 Sodium 137 (136-145) mEq/L Potassium 3.6 (3.5-5.1) mEq/L Chloride 107 (98-107) mEq/L Carbon Dioxide 22 L (23-29) mEq/L BUN 55 H (8-23) mg/dL Creatinine 8.72 H (0.70-1.30) mg/dL Glucose 90 (70-105) mg/dL Calcium 9.8 (8.6-10.3) mg/dL Consult Discharge Plan - Plan Referrals: NONE,PCP [Primary Care Provider] -
--- NOTE | 2019-03-02 15:38 | Infectious Disease Progress No ---
ID Progress Note Date of Encounter: 03/02/19 Time of Encounter: 15:33 - Subjective Subjective: Examination seen and examined in the hemodialysis unit. He appears comfortable. No Acute distress. He denies any headache. No chest pain no shortness of breath. He does admit to some abdominal pain i the lower abdomen with no radiation. VS: noted Labs reviewed None from today cultures noted - Objective CBC & Chem 7: 03/01/19 10:37 03/02/19 04:33 - Line Documentation Line Documentation: Aguilar Catheter (Draining blood-tinged dark yellow urine.) - Exam Vitals: Temp Pulse Resp BP Pulse Ox 98.3 F 93 15 111/72 95 03/02/19 11:40 03/02/19 10:43 03/02/19 11:40 03/02/19 15:10 03/02/19 10:43 Exam: GENERAL: Comfortable. Laying in bed NAD HEENT: KEILA, EOMI LUNGS: Good air sounds bilaterally, no wheezing or rhonchi CV: RRR, S1 S2 ABDOMEN: soft distended, surgical wound intact. suprapubic noted. SMITHA drain noted EXT: Adequate perfusion. No edema NEURO: A&OX3; no focal deficit - Assessment and Plan (1) Sepsis Current Visit: Yes Status: Resolved The patient had 3 sepsis criteria including tachycardia, leukocytosis, and fever. Likely secondary to acute appendicitis with perforation and intra-abdominal abscess. Improved. Tachycardia improved. Afebrile. Leukocytosis stable with normal differential. Blood cultures drawn 02/21/19 are no growth to date 2 sets. Qualifiers: Sepsis type: Escherichia coli Qualified Code(s): A41.51 - Sepsis due to Escherichia coli [E. coli] SNOMED Code(s): 52967919 (2) Acute appendicitis Current Visit: Yes Status: Acute CT of the abdomen and pelvis 02/21/19 showed acute appendicitis with a single bubble of extraluminal gas adjacent to the appendix suggesting perforation, although there was no definitive abscess. Acute care surgery consult. Opted for conservative therapy initially, but patient's clinical picture worsened. Repeat CT of the abdomen and pelvis 02/24/19 again showed a perforated appendix with interval development of an abscess collection seen in the right lower quadrant along the appendix measuring 2.8 x 1.6 cm with direct continuity of the abscess collection in the perforated wall of the appendix. A small portion of the measured abscess extended superiorly adjacent to the cecum, with cecal wall thickening and inflammatory changes seen surrounding the appendix. Acute care surgery opted to take the patient to the operating room and performed an open ileocecectomy with hbsj-it-qznc anastomosis 02/24/[address] Rc Roth. Operative note reviewed. Currently on Zosyn and fluconazole. Qualifiers: Acute appendicitis type: with localized peritonitis Appendicitis gangrene presence: without gangrene Appendicitis perforation presence: with perforation Appendicitis abscess presence: with abscess Qualified Code(s): K35.33 - Acute appendicitis with perforation and localized peritonitis, with abscess SNOMED Code(s): 31572720 (3) Intra-abdominal abscess Current Visit: Yes Status: Acute Secondary to perforated appendicitis. Noted on CT scan completed 02/24/19. Status post open ileocecectomy with hznt-hf-dkhd anastomosis 02/24/[address] Irwin. Currently on IV Zosyn and fluconazole. SNOMED Code(s): 50547180 (4) Abdominal pain Current Visit: Yes Status: Acute Likely secondary to perforated appendicitis with abscess and urinary retention. Improved. Pain management per the primary and surgery teams. Qualifiers: Abdominal location: right lower quadrant Qualified Code(s): R10.31 - Right lower quadrant pain SNOMED Code(s): 79554401 (5) Hydroureteronephrosis Current Visit: Yes Status: Acute Likely secondary to chronic bladder outlet obstruction. Noted on CT scan completed 02/21/19. Urology consulted. Unable to pass Aguilar catheter, so bedside suprapubic catheter placement performed . While in the operating room for the perforated appendix, underwent cystoscopy with dilation of urethral stricture and suprapubic cystostomy by Dr. Metzger. SNOMED Code(s): 49976828 (6) Bladder outlet obstruction Current Visit: Yes Status: Acute Secondary to urethral stricture. Status post urethral stricture dilation 02/24/[address] Metzger. SNOMED Code(s): 710244353 (7) Urethral stricture Current Visit: Yes Status: Acute Qualifiers: Urethral stricture sex-location: male urethra-bulbous Qualified Code(s): N35.812 - Other urethral bulbous stricture, male SNOMED Code(s): 90822156 (8) Urinary retention Current Visit: Yes Status: Acute Secondary to urethral stricture and chronic bladder outlet obstruction. Resolved. SNOMED Code(s): 099305941 (9) ESRD (end stage renal disease) Current Visit: Yes Status: Chronic Nephrology consult and following. SNOMED Code(s): 35158742 (10) Hypertension Current Visit: Yes Status: Chronic Qualifiers: Hypertension type: essential hypertension Qualified Code(s): I10 - Essential (primary) hypertension SNOMED Code(s): 26960193 - Recommendations Recommendations: If no improvement in WBC and cliincal picture might have to re image his abdomen for now continue zosyn dose adjust based on HD continue difluxan dose adjust as well duration of treatment depends on clinical picture Consult Discharge Plan - Plan Referrals: NONE,PCP [Primary Care Provider] -
[2019-03-02] MEDS: OXYCODONE Oral CONC 10 MG/0.5 ML ORAL.SYG SL PRN (16:42)
[2019-03-02 16:59] LABS: Basophils # 0.1 K/mcL (0.0-0.2); Basophils % 0.3 %; Eosinophils # 0.4 K/mcL (0.0-0.6); Eosinophils % 1.9 %; Hematocrit 31.9 % (37.5-50.1); Hemoglobin 10.6 g/dL (12.9-16.9); Immature Granulocytes % 4.8 % (0-4); Lymphocytes # 1.4 K/mcL (0.6-4.6); Mean Corpuscular HGB Conc 33.2 g/dL (31.6-35.5); Mean Corpuscular Hemoglobin 29.6 pg (28.0-33.3); Mean Corpuscular Volume 89.1 fL (83.0-100.0); Mean Platelet Volume 9.8 fL (9.4-12.4); Neutrophils # 16.3 K/mcL (1.6-8.9); Platelet Count 422 K/mcL (140-400); Red Blood Count 3.58 M/mcL (4.19-5.50); Red Cell Distribution Width 13.6 % (11.5-14.5)
[2019-03-02] MEDS: Ondansetron 4 MG/2 ML VIAL IVP PRN (17:36)
[2019-03-02] MEDS: Fluconazole 200 MG/100 ML 200 MG/100 ML BAG IVPB SCH (17:38)
--- NOTE | 2019-03-02 18:36 | Internal Med Progress Note ---
Hospitalist Progress Note - Encounter Date of Encounter: 03/02/19 Time of Encounter: 11:00 - Subjective Interval History: Patient is a 68-year-old male with past medical history significant for end- stage renal disease and hyperlipidemia who presented due to abdominal pain secondary to acute perforated appendix in addition to urethral stricture with urinary retention. Patient is postop day 6 ileocecectomy and zldw-dx-fdom anastomosis for acute perforated appendicitis Patient also postop day 6 cystoscopy, dilation urethral stricture, suprapubic cystostomy Patient's white count with no improvement this morning remains afebrile - Exam Vitals: Temp Pulse Resp BP Pulse Ox 97.5 F L 93 14 132/73 95 03/02/19 15:34 03/02/19 10:43 03/02/19 15:34 03/02/19 15:34 03/02/19 10:43 Exam: Gen.: Nonacute distress, alert and oriented 3 ENT: Mucosal membranes moist Respiratory: Lungs are clear to auscultation bilaterally without any wheezing rhonchi or rales Cardiovascular: Normal S1 and S2 regular rate rhythm no murmurs rubs or gallops Abdomen: Soft, nontender and nondistended with positive bowel sounds Extremities: No lower extremity edema Skin: Normal color - Assessment and Plan (1) Acute appendicitis Current Visit: Yes Status: Acute Assessment and Plan: Patient presented due to abdominal pain secondary to acute perforated appendix. CT of the abdomen and pelvis done today shows acute perforation and abscess. Patient is postop day 5 ileocecectomy and tsvl-va-rnxd anastomosis for acute perforated appendicitis in addition to cystoscopy with dilation of ureteral stricture and suprapubic cystostomy. Will continue IV Zosyn and IV Diflucan General surgery following with recommendations to continue clear diet until patient has flatus Infectious disease following with recommendations for consideration to repeat imaging abdomen if no improvement in leukocytosis on 03/03/19 (2) Urethral stricture Current Visit: Yes Status: Acute Assessment and Plan: Urology consulted and patient now postop day 6 cystoscopy with dilation of urethral stricture with suprapubic cystostomy Appreciate any further recommendations (3) Sepsis Current Visit: Yes Status: Resolved Assessment and Plan: Resolved; continue to monitor (4) Hydroureteronephrosis Current Visit: Yes Status: Acute Assessment and Plan: Treated with suprapubic catheter placement as above. (5) ESRD (end stage renal disease) Current Visit: Yes Status: Chronic Assessment and Plan: Nephrology following for dialysis needs (6) HLD (hyperlipidemia) Current Visit: Yes Status: Acute Assessment and Plan: Continue statin DVT Prophylaxis: Heparin subcutaneous - Time Spent with Patient Total time spent is greater than 50% in coordination of care (as documented) at patient's floor/unit and/or counseling patient: Internal Medicine: Result - Labs CBC & Chem 7: 03/02/19 16:47 03/02/19 04:33 Labs: Short CBC 03/02/19 Range/Units 16:47 WBC 20.1 H (4.3-11.1) K/mcL Hgb 10.6 L (12.9-16.9) g/dL Hct 31.9 L (37.5-50.1) % Plt Count 422 H (140-400) K/mcL Neutrophils # 16.3 H (1.6-8.9) K/mcL BMP 03/02/19 04:33 Sodium 137 Potassium 3.6 Chloride 107 Carbon Dioxide 22 L BUN 55 H Creatinine 8.72 H Glucose 90 Calcium 9.8 - ABG Interpretation ABG results: PT/INR, D-dimer PT 12.8 Seconds (9.4-12.1) H 02/21/19 16:27 - Impressions Impressions KUB X-Ray 03/02/19 07:53 IMPRESSION: 1. Postsurgical changes, with surgical drain projecting over the right abdomen. 2. Gaseous distention of small bowel and colon. These findings favor ileus, although evolving partial small bowel obstruction is not excluded. Continued radiographic follow-up recommended. D/ / 03/02/2019 08:38:10 Emiliano Friend MD / Tracy Queen Interpreting Provider: Emiliano Friend MD Consult Discharge Plan - Plan Referrals: NONE,PCP [Primary Care Provider] - (1) Acute appendicitis Qualifiers: Acute appendicitis type: with localized peritonitis Appendicitis gangrene presence: without gangrene Appendicitis perforation presence: with perforation Appendicitis abscess presence: with abscess Qualified Code(s): K35.33 - Acute appendicitis with perforation and localized peritonitis, with abscess (2) Urethral stricture Qualifiers: Urethral stricture sex-location: male urethra-bulbous Qualified Code(s): N35.812 - Other urethral bulbous stricture, male (3) Sepsis Qualifiers: Sepsis type: Escherichia coli Qualified Code(s): A41.51 - Sepsis due to Escherichia coli [E. coli]
--- NOTE | 2019-03-02 23:45 | Nephrology Progress Note ---
Date of Encounter: 03/02/19 Time of Encounter: 12:00 - Assessment and Plan (1) ESRD (end stage renal disease) Current Visit: Yes Status: Chronic Continue HD with UF as tolerated Lytes stable Resume renal diet when able to eat (2) Hydroureteronephrosis Current Visit: Yes Status: Acute s/p intervention with urology (3) Bladder outlet obstruction Current Visit: Yes Status: Acute s/p intervention with urology (4) Hypertension Current Visit: Yes Status: Chronic Qualifiers: Hypertension type: essential hypertension Qualified Code(s): I10 - Essential (primary) hypertension (5) Acute appendicitis Current Visit: Yes Status: Acute As per primary/surgery, post intervention Qualifiers: Acute appendicitis type: with localized peritonitis Appendicitis gangrene presence: without gangrene Appendicitis perforation presence: with perforation Appendicitis abscess presence: with abscess Qualified Code(s): K35.33 - Acute appendicitis with perforation and localized peritonitis, with abscess Subjective Principal diagnosis: ESRD Interval history: Pt seen and examined on HD feeling better. Pt reports having more flatulence today and wanting to eat more today Objective - Vital Signs Vital signs: Vital Signs Temp Pulse Resp BP Pulse Ox 03/02/19 23:12 98.0 F 103 16 132/70 96 03/02/19 18:33 98.7 F 107 16 102/60 96 03/02/19 15:34 97.5 F L 14 132/73 03/02/19 15:10 111/72 03/02/19 14:55 106/67 03/02/19 14:40 108/72 03/02/19 14:25 106/67 03/02/19 14:10 102/63 03/02/19 13:55 108/76 03/02/19 13:40 120/78 03/02/19 13:25 135/80 03/02/19 13:10 126/79 03/02/19 12:55 136/80 03/02/19 12:40 120/74 03/02/19 12:25 125/72 03/02/19 12:10 129/81 03/02/19 11:55 124/72 03/02/19 11:40 98.3 F 15 121/75 03/02/19 10:43 98.3 F 93 12 160/65 95 03/02/19 09:20 95 03/02/19 07:43 97.8 F 92 13 139/79 95 03/02/19 02:52 97.5 F L 90 15 158/75 96 Intake and Output 03/02/19 03/02/19 03/02/19 07:59 15:59 23:59 Intake Total 300 / 1480 1080 / 1480 100 / 1480 Output Total 910 / 5125 3800 / 5125 415 / 5125 Balance -610 / -3645 -2720 / -3645 -315 / -3645 Intake: IV Fluids 100 / 300 100 / 300 100 / 300 Diflucan Premix 200 MG/100 ML 100 / 100 200 mg In 100 ml @ 100 mls/hr IVPB MOWEFR@1800 [facility] Rx#: [id number] Zosyn 3.375 GM In 0.9 % Sodium 100 / 200 100 / 200 Chloride (Mini-Bag +) 100 ML @ 25 mls/hr IVPB Q12HR [facility] Rx#: [id number] Oral 200 / 680 480 / 680 Intake, Rinseback and Flushes 500 / 500 Output: Urine 0 / 0 Total Dialysis (HD) Output 3500 / 3500 Catheter 830 / 1505 300 / 1505 375 / 1505 Urethral (Aguilar) 300 / 300 Wound Drainage 80 / 120 0 / 120 40 / 120 Right Lower Abdomen 80 / 120 0 / 120 40 / 120 Other: Hemodialysis Net Fluid Removed 3000 (mL) - Lab 03/02/19 16:47 03/02/19 04:33 Consult Discharge Plan - Plan Referrals: NONE,PCP [Primary Care Provider] -
[2019-03-03 05:49] LABS: Basophils # 0.1 K/mcL (0.0-0.2); Basophils % 0.3 %; Eosinophils # 0.5 K/mcL (0.0-0.6); Eosinophils % 2.8 %; Hematocrit 29.5 % (37.5-50.1); Hemoglobin 9.6 g/dL (12.9-16.9); Immature Granulocytes % 4.1 % (0-4); Lymphocytes # 1.5 K/mcL (0.6-4.6); Lymphocytes % 8.6 %; Mean Corpuscular HGB Conc 32.5 g/dL (31.6-35.5); Mean Corpuscular Hemoglobin 29.3 pg (28.0-33.3); Mean Corpuscular Volume 89.9 fL (83.0-100.0); Mean Platelet Volume 10.1 fL (9.4-12.4); Monocytes # 0.9 K/mcL (0.0-1.3); Neutrophils # 13.6 K/mcL (1.6-8.9); Platelet Count 374 K/mcL (140-400); Red Blood Count 3.28 M/mcL (4.19-5.50); Red Cell Distribution Width 13.5 % (11.5-14.5); Segmented Neutrophils % 79.2 %
[2019-03-03] MEDS: *HR* Heparin 5,000 UNIT/ML VIAL SQ SCH ×2 (06:03→18:40)
[2019-03-03] MEDS: Piperacillin/Tazobactam 3.375 GM in 0.9 % Sodium Chloride Mini Bag 100 ML IVPB SCH ×2 (06:04→18:59)
[2019-03-03 06:07] LABS: Calcium 9.8 mg/dL (8.6-10.3); Potassium 3.5 mEq/L (3.5-5.1)
[2019-03-03] MEDS: Ondansetron 4 MG/2 ML VIAL IVP PRN (08:42)
--- NOTE | 2019-03-03 11:13 | Infectious Disease Progress No ---
ID Progress Note Date of Encounter: 03/03/19 Time of Encounter: 11:11 - Subjective Subjective: Patient seen and examined. No acute events noted overnight. Patient states he feels better today. Denies fevers, chills, rigors. Denies chest pain, shortness of breath, or cough. Denies nausea, but does endorse some reflux with hiccuping. Denies vomiting. Reports abdominal distention improved and denies abdominal pain. Tolerating clear liquid diet well. Aguilar catheter remains patent. Denies oral thrush or skin rashes. Reports flatus with a stool smear this morning. - Objective CBC & Chem 7: 03/04/19 07:02 03/04/19 07:02 - Line Documentation Line Documentation: Aguilar Catheter (Draining blood-tinged dark yellow urine.) - Exam Vitals: Temp Pulse Resp BP Pulse Ox 98 F 96 16 129/77 95 03/03/19 07:46 03/03/19 07:46 03/03/19 07:46 03/03/19 07:46 03/03/19 07:46 Exam: Head: Atraumatic, normal inspection, normocephalic. Eye: EOMI, PERRLA, no scleral icterus noted. ENT: Mucous membranes moist. No odontogenic infection noted. Neck: Normal inspection, no meningismus. Respiratory: Clear to auscultation. No rales, respiratory distress, rhonchi, or wheezes noted. Cardiovascular: Regular rate and rhythm, S1 and S2 audible. No murmurs, rubs, or gallops. GI: Soft, non-distended, normal bowel sounds. Midline abdominal incision open to air with sloane intact. Wound edges well approximated without erythema, warmth, or drainage. Abdomen non-tender. Surgical trocar site noted to the left lower quadrant with sloane intact. Suprapubic catheter clamped and Aguilar catheter draining clear yellow urine. SMITHA drain noted to the right abdomen with serous drainage. Extremities: No joint swelling, pedal edema, or tenderness noted. AV fistula noted to the right upper extremity +/+. Neurological: Alert, oriented 3, no focal deficits. Psychiatric: normal affect, normal mood. Skin: Dry, intact, warm. Normal color. No rashes. - Assessment and Plan (1) Sepsis Current Visit: Yes Status: Resolved The patient had 3 sepsis criteria including tachycardia, leukocytosis, and fever. Likely secondary to acute appendicitis with perforation and intra-abdominal abscess. Improved. Tachycardia improved. Afebrile. Leukocytosis persists. Blood cultures drawn 02/21/19 are no growth to date 2 sets. Qualifiers: Sepsis type: Escherichia coli Qualified Code(s): A41.51 - Sepsis due to Escherichia coli [E. coli] SNOMED Code(s): 68048464 (2) Acute appendicitis Current Visit: Yes Status: Acute CT of the abdomen and pelvis 02/21/19 showed acute appendicitis with a single bubble of extraluminal gas adjacent to the appendix suggesting perforation, although there was no definitive abscess. Acute care surgery consult. Opted for conservative therapy initially, but teresa lopez's clinical picture worsened. Repeat CT of the abdomen and pelvis 02/24/19 again showed a perforated appendix with interval development of an abscess collection seen in the right lower quadrant along the appendix measuring 2.8 x 1.6 cm with direct continuity of the abscess collection in the perforated wall of the appendix. A small portion of the measured abscess extended superiorly adjacent to the cecum, with cecal wall thickening and inflammatory changes seen surrounding the appendix. Acute care surgery opted to take the patient to the operating room and performed an open ileocecectomy with jrzt-gk-wdxi anastomosis 02/24/[address] Rc Roth. Operative note reviewed. Currently on Zosyn and fluconazole. Qualifiers: Acute appendicitis type: with localized peritonitis Appendicitis gangrene presence: without gangrene Appendicitis perforation presence: with perforation Appendicitis abscess presence: with abscess Qualified Code(s): K35.33 - Acute appendicitis with perforation and localized peritonitis, with abscess SNOMED Code(s): 50386595 (3) Intra-abdominal abscess Current Visit: Yes Status: Acute Secondary to perforated appendicitis. Noted on CT scan completed 02/24/19. Status post open ileocecectomy with myop-uh-iwff anastomosis 02/24/[address] Irwin. Currently on IV Zosyn and fluconazole. SNOMED Code(s): 51253019 (4) Abdominal pain Current Visit: Yes Status: Acute Likely secondary to perforated appendicitis with abscess and urinary retention. Improved. Pain management per the primary and surgery teams. Qualifiers: Abdominal location: right lower quadrant Qualified Code(s): R10.31 - Right lower quadrant pain SNOMED Code(s): 18155610 (5) Hydroureteronephrosis Current Visit: Yes Status: Acute Likely secondary to chronic bladder outlet obstruction. Noted on CT scan completed 02/21/19. Urology consulted. Unable to pass Aguilar catheter, so bedside suprapubic catheter placement performed . While in the operating room for the perforated appendix, underwent cystoscopy with dilation of urethral stricture and suprapubic cystostomy by Dr. Metzger. SNOMED Code(s): 89016003 (6) Bladder outlet obstruction Current Visit: Yes Status: Acute Secondary to urethral stricture. Status post urethral stricture dilation 02/24/[address] Metzger. SNOMED Code(s): 567530146 (7) Urethral stricture Current Visit: Yes Status: Acute Qualifiers: Urethral stricture sex-location: male urethra-bulbous Qualified Code(s): N35.812 - Other urethral bulbous stricture, male SNOMED Code(s): 35100661 (8) Urinary retention Current Visit: Yes Status: Acute Secondary to urethral stricture and chronic bladder outlet obstruction. Resolved. SNOMED Code(s): 090117886 (9) ESRD (end stage renal disease) Current Visit: Yes Status: Chronic Nephrology consult and following. SNOMED Code(s): 93088149 (10) Hypertension Current Visit: Yes Status: Chronic Qualifiers: Hypertension type: essential hypertension Qualified Code(s): I10 - Essential (primary) hypertension SNOMED Code(s): 18745249 (11) Ileus following gastrointestinal surgery Current Visit: Yes Status: Acute Abdominal x-ray showed ileus versus partial small bowel obstruction. The patient reports flatness with a stool smear this morning. Paez be tolerating clear liquid diet. Could be contributing to the patient's persistent leukocytosis. Further management per the acute care surgery team. SNOMED Code(s): 378949671 - Recommendations Recommendations: Check procalcitonin. Continue to trend CBC. Diet, wound care, and postop management per the acute care surgery team. Continue Zosyn 3.375 g IV every 12 hours (dose-adjust for HD status). Continue fluconazole. Will ask pharmacy to assist with dosing. Duration of treatment depends on the clinical picture. Monitor renal function and does adjust antibiotics and medications for HD status. Consult Discharge Plan - Plan Referrals: NONE,PCP [Primary Care Provider] - - Attending Attestation I have personally performed a face to face evaluation on this patient. I have reviewed and agree with the care plan. History and Exam by me shows: Assessment and plan: 1.Sepsis secondary to acute appendicitis with perforation 2.Acute appendicitis with perforation 3.Intra-abdominal abscess status post open ileocecectomy with knoc-ba-hodt anastomosis 02/24/19 by . 4.Ureter nephrosis secondary to bladder outlet obstruction 5.Bladder outlet obstruction 6.Urethral stricture Recommendations: continue zosyn and diflucan still decent output from SMITHA drain await repeat labs from today
--- NOTE | 2019-03-03 15:11 | AcuteCareSurgery Progress Note ---
Date of Encounter: 03/03/19 Time of Encounter: 07:30 - Assessment and Plan (1) Acute appendicitis Current Visit: Yes Status: Acute POD# 7 Ileocectomy for ruptured appendicitis. Advancing diet to full liquids led to nausea and vomiting. Pt placed back on clears and nutrition consulted for supplementation. However, during the course of the day, pt had BM. Ileus resolving and full restarted. Increase activity. Consult case briefer for DC planning. Qualifiers: Acute appendicitis type: with localized peritonitis Appendicitis gangrene presence: without gangrene Appendicitis perforation presence: with perforation Appendicitis abscess presence: with abscess Qualified Code(s): K35.33 - Acute appendicitis with perforation and localized peritonitis, with abscess (2) ESRD (end stage renal disease) Current Visit: Yes Status: Chronic (3) Urethral stricture Current Visit: Yes Status: Acute s/p cystoscopy with urethral dilation and hickey placement Qualifiers: Urethral stricture sex-location: male urethra-bulbous Qualified Code(s): N35.812 - Other urethral bulbous stricture, male (4) Urinary retention Current Visit: Yes Status: Acute see above; s/p SP catheter placement Subjective Patient reports: no new complaints, feels better, pain is less, flatus, bowel movement Objective Vital Signs - Last 8 Hours Temp Pulse Resp BP Pulse Ox 03/03/19 07:46 98 F 96 16 129/77 95 Intake and Output 03/02/19 03/03/19 03/03/19 23:59 07:59 15:59 Intake Total 200 / 1580 Output Total 415 / 5125 535 / 535 Balance -215 / -3545 -535 / -535 Intake: IV Fluids 200 / 400 Diflucan Premix 200 MG/100 ML 100 / 100 200 mg In 100 ml @ 100 mls/hr IVPB MOWEFR@1800 [facility] Rx#: [id number] Zosyn 3.375 GM In 0.9 % Sodium 100 / 300 Chloride (Mini-Bag +) 100 ML @ 25 mls/hr IVPB Q12HR [facility] Rx#: [id number] Output: Catheter 375 / 1505 500 / 500 Wound Drainage 40 / 120 35 / 35 Right Lower Abdomen 40 / 120 35 / 35 Other: Stool Size Moderate Stool Consistency liquid soft Stool Color Brown Black # Bowel Movements 1 Weight 78.8 kg Patient Weight 03/03/19 23:59 Weight 78.8 kg - General physical appearance no distress, no pain - Eyes PERRL, normal ocular movement - ENT normal mucosa, no congestion - Neck Neck exam: trachea midline, no venous distension - Respiratory normal respiratory effort, clear to auscultation - Cardiovascular Cardiovascular exam: Present: RRR. Absent: murmurs - Abdomen Abdomen: Present: bowel sounds present, soft, non tender Additional Comments: SMITHA with minimal serous output - Incision Incision: Present: clean and dry, intact - Genitourinary other (SP and hickey in place) - Neurologic CN 2-12 grossly intact, normal coordination - Musculoskeletal normal posture - Psychiatric oriented to time, oriented to person, oriented to place - Labs 03/03/19 05:08 03/03/19 05:08 Diabetes panel 03/03/19 Range/Units 05:08 Sodium 139 (136-145) mEq/L Potassium 3.5 (3.5-5.1) mEq/L Chloride 100 (98-107) mEq/L Carbon Dioxide 27 (23-29) mEq/L BUN 35 H (8-23) mg/dL Creatinine 6.49 H (0.70-1.30) mg/dL Glucose 98 (70-105) mg/dL Calcium 9.8 (8.6-10.3) mg/dL Calcium panel 03/03/19 Range/Units 05:08 Calcium 9.8 (8.6-10.3) mg/dL Pituitary panel 03/03/19 Range/Units 05:08 Sodium 139 (136-145) mEq/L Potassium 3.5 (3.5-5.1) mEq/L Chloride 100 (98-107) mEq/L Carbon Dioxide 27 (23-29) mEq/L BUN 35 H (8-23) mg/dL Creatinine 6.49 H (0.70-1.30) mg/dL Glucose 98 (70-105) mg/dL Calcium 9.8 (8.6-10.3) mg/dL Adrenal panel 03/03/19 Range/Units 05:08 Sodium 139 (136-145) mEq/L Potassium 3.5 (3.5-5.1) mEq/L Chloride 100 (98-107) mEq/L Carbon Dioxide 27 (23-29) mEq/L BUN 35 H (8-23) mg/dL Creatinine 6.49 H (0.70-1.30) mg/dL Glucose 98 (70-105) mg/dL Calcium 9.8 (8.6-10.3) mg/dL Consult Discharge Plan - Plan Referrals: NONE,PCP [Primary Care Provider] -
[2019-03-03] MEDS: *HR* Promethazine 25 MG/ML VIAL IVP PRN (18:49)
[2019-03-03] MEDS: Fluconazole 200 MG/100 ML 100 MG/50 ML BAG IVPB SCH (18:58)
--- NOTE | 2019-03-03 19:43 | Internal Med Progress Note ---
Hospitalist Progress Note - Encounter Date of Encounter: 03/03/19 Time of Encounter: 11:00 - Subjective Interval History: Patient is a 68-year-old male with past medical history significant for end- stage renal disease and hyperlipidemia who presented due to abdominal pain secondary to acute perforated appendix in addition to urethral stricture with urinary retention. Patient is postop day 7 ileocecectomy and [id number]-[id number] anastomosis for acute perforated appendicitis Patient also postop day 7 cystoscopy, dilation urethral stricture, suprapubic cystostomy Patient's white count with no improvement this morning remains afebrile Patient with bowel movement today and ileus resolving - Exam Vitals: Temp Pulse Resp BP Pulse Ox 97.8 F 100 16 112/69 98 03/03/19 16:55 03/03/19 16:55 03/03/19 16:55 03/03/19 16:55 03/03/19 16:55 Exam: Gen.: Nonacute distress, alert and oriented 3 ENT: Mucosal membranes moist Respiratory: Lungs are clear to auscultation bilaterally without any wheezing rhonchi or rales Cardiovascular: Normal S1 and S2 regular rate rhythm no murmurs rubs or gallops Abdomen: Soft, nontender and nondistended with positive bowel sounds Extremities: No lower extremity edema Skin: Normal color - Assessment and Plan (1) Acute appendicitis Current Visit: Yes Status: Acute Assessment and Plan: Patient presented due to abdominal pain secondary to acute perforated appendix. CT of the abdomen and pelvis done today shows acute perforation and abscess. Patient is postop day 6 ileocecectomy and [id number] anastomosis for acute perforated appendicitis in addition to cystoscopy with dilation of ureteral stricture and suprapubic cystostomy. Will continue IV Zosyn and IV Diflucan Patient with bowel movement this morning ileus resolving General surgery following with recommendations Infectious disease following with recommendations for IV antibiotics (2) Urethral stricture Current Visit: Yes Status: Acute Assessment and Plan: Urology consulted and patient now postop day 7 cystoscopy with dilation of urethral stricture with suprapubic cystostomy Appreciate any further recommendations (3) Sepsis Current Visit: Yes Status: Resolved Assessment and Plan: Resolved; continue to monitor (4) Hydroureteronephrosis Current Visit: Yes Status: Acute Assessment and Plan: Treated with suprapubic catheter placement as above. (5) ESRD (end stage renal disease) Current Visit: Yes Status: Chronic Assessment and Plan: Nephrology following for dialysis needs (6) HLD (hyperlipidemia) Current Visit: Yes Status: Acute Assessment and Plan: Continue statin DVT Prophylaxis: Heparin subcutaneous - Time Spent with Patient Total time spent is greater than 50% in coordination of care (as documented) at patient's floor/unit and/or counseling patient: Internal Medicine: Result - Labs CBC & Chem 7: 03/03/19 05:08 03/03/19 05:08 Labs: Short CBC 03/03/19 Range/Units 05:08 WBC 17.2 H (4.3-11.1) K/mcL Hgb 9.6 L (12.9-16.9) g/dL Hct 29.5 L (37.5-50.1) % Plt Count 374 (140-400) K/mcL Neutrophils # 13.6 H (1.6-8.9) K/mcL BMP 03/03/19 05:08 Sodium 139 Potassium 3.5 Chloride 100 Carbon Dioxide 27 BUN 35 H Creatinine 6.49 H Glucose 98 Calcium 9.8 - ABG Interpretation ABG results: PT/INR, D-dimer PT 12.8 Seconds (9.4-12.1) H 02/21/19 16:27 - Impressions Impressions KUB X-Ray 03/02/19 07:53 IMPRESSION: 1. Postsurgical changes, with surgical drain projecting over the right abdomen. 2. Gaseous distention of small bowel and colon. These findings favor ileus, although evolving partial small bowel obstruction is not excluded. Continued radiographic follow-up recommended. D/ / 03/02/2019 08:38:10 Emiliano Friend MD / Tracy Queen Interpreting Provider: Emiliano Friend MD Consult Discharge Plan - Plan Referrals: NONE,PCP [Primary Care Provider] - (1) Acute appendicitis Qualifiers: Acute appendicitis type: with localized peritonitis Appendicitis gangrene presence: without gangrene Appendicitis perforation presence: with perforation Appendicitis abscess presence: with abscess Qualified Code(s): K35.33 - Acute appendicitis with perforation and localized peritonitis, with abscess (2) Urethral stricture Qualifiers: Urethral stricture sex-location: male urethra-bulbous Qualified Code(s): N35.812 - Other urethral bulbous stricture, male (3) Sepsis Qualifiers: Sepsis type: Escherichia coli Qualified Code(s): A41.51 - Sepsis due to Escherichia coli [E. coli]
[2019-03-03] MEDS: OXYCODONE Oral CONC 10 MG/0.5 ML ORAL.SYG SL PRN (22:11)
--- NOTE | 2019-03-03 22:56 | Nephrology Progress Note ---
Date of Encounter: 03/03/19 Time of Encounter: 12:00 - Assessment and Plan (1) ESRD (end stage renal disease) Current Visit: Yes Status: Chronic s/p HD with next session planned for tomorrow Lytes stable Resume renal diet when able to eat (2) Hydroureteronephrosis Current Visit: Yes Status: Acute (3) Bladder outlet obstruction Current Visit: Yes Status: Acute (4) Hypertension Current Visit: Yes Status: Chronic Qualifiers: Hypertension type: essential hypertension Qualified Code(s): I10 - Essential (primary) hypertension (5) Acute appendicitis Current Visit: Yes Status: Acute Qualifiers: Acute appendicitis type: with localized peritonitis Appendicitis gangrene presence: without gangrene Appendicitis perforation presence: with perforation Appendicitis abscess presence: with abscess Qualified Code(s): K35.33 - Acute appendicitis with perforation and localized peritonitis, with abscess Subjective Principal diagnosis: ESRD Interval history: Pt seen and examined sitting in chair with some abdominal pain. Reports large BM today. Eating alittle more Objective - Vital Signs Vital signs: Vital Signs Temp Pulse Resp BP Pulse Ox 03/03/19 20:11 98.0 F 99 16 124/75 96 03/03/19 16:55 97.8 F 100 16 112/69 98 03/03/19 07:46 98 F 96 16 129/77 95 03/03/19 03:14 97.8 F 99 16 137/70 97 03/02/19 23:12 98.0 F 103 16 132/70 96 Intake and Output 03/03/19 03/03/19 03/03/19 07:59 15:59 23:59 Intake Total 100 / 100 0 / 100 Output Total 535 / 1335 800 / 1335 Balance -535 / -1235 100 / -1235 -800 / -1235 Intake: IV Fluids 100 / 100 Zosyn 3.375 GM In 0.9 % Sodium 100 / 100 Chloride (Mini-Bag +) 100 ML @ 25 mls/hr IVPB Q12HR [facility] Rx#: [id number] Oral 0 / 0 Output: Emesis 40 / 40 Catheter 500 / 1200 700 / 1200 Wound Drainage 35 / 95 60 / 95 Right Lower Abdomen 35 / 95 60 / 95 Other: Stool Size Moderate Stool Consistency liquid soft Stool Color Brown Black # Bowel Movements 1 Weight 78.8 kg Patient Weight 03/03/19 23:59 Weight 78.8 kg - Lab 03/03/19 05:08 03/03/19 05:08 Consult Discharge Plan - Plan Referrals: NONE,PCP [Primary Care Provider] -
[2019-03-04] MEDS: Piperacillin/Tazobactam 3.375 GM in 0.9 % Sodium Chloride Mini Bag 100 ML IVPB SCH ×2 (05:51→17:19)
[2019-03-04] MEDS: *HR* Heparin 5,000 UNIT/ML VIAL SQ SCH ×2 (05:51→17:31)
[2019-03-04 07:40] LABS: Basophils # 0.1 K/mcL (0.0-0.2); Basophils % 0.4 %; Eosinophils # 0.5 K/mcL (0.0-0.6); Eosinophils % 3.2 %; Hematocrit 29.6 % (37.5-50.1); Hemoglobin 9.7 g/dL (12.9-16.9); Immature Granulocytes % 3.8 % (0-4); Lymphocytes # 1.6 K/mcL (0.6-4.6); Lymphocytes % 11.1 %; Mean Corpuscular HGB Conc 32.8 g/dL (31.6-35.5); Mean Corpuscular Hemoglobin 29.6 pg (28.0-33.3); Mean Corpuscular Volume 90.2 fL (83.0-100.0); Monocytes # 0.8 K/mcL (0.0-1.3); Monocytes % 5.5 %; Neutrophils # 10.9 K/mcL (1.6-8.9); Platelet Count 345 K/mcL (140-400); Red Blood Count 3.28 M/mcL (4.19-5.50); Red Cell Distribution Width 13.7 % (11.5-14.5)
[2019-03-04 07:57] LABS: Calcium 10.5 mg/dL (8.6-10.3); Potassium 3.5 mEq/L (3.5-5.1)
[2019-03-04] MEDS ORDERED: 0.9 % Sodium Chloride 250 ML IVC PRN (08:09)
[2019-03-04] MEDS ORDERED: *HR* Heparin 10,000 UNIT/10 ML VIAL IV PRN (08:09)
[2019-03-04] MEDS ORDERED: 0.9 % Sodium Chloride 1,000 ML PRIME SCH (08:15)
--- NOTE | 2019-03-04 08:34 | AcuteCareSurgery Progress Note ---
Date of Encounter: 03/04/19 Time of Encounter: 08:33 - Assessment and Plan (1) Acute appendicitis Current Visit: Yes Status: Acute Past post ileocecectomy. Awaiting return of bowel function. Patient is having bowel movements and flatus and has good bowel sounds despite the nausea and vomiting yesterday. He does enjoy drinking the Resource shakes and fortify Jell-O. Will add Reglan to see if we can temporize him or determine whether he needs central line access for TPN. Our hope is that over the next 24-48 hours his bowel function will turn. Will follow closely. Qualifiers: Acute appendicitis type: with localized peritonitis Appendicitis gangrene presence: without gangrene Appendicitis perforation presence: with perforation Appendicitis abscess presence: with abscess Qualified Code(s): K35.33 - Acute appendicitis with perforation and localized peritonitis, with abscess (2) ESRD (end stage renal disease) Current Visit: Yes Status: Chronic Dialysis schedule per nephrology. (3) Urethral stricture Current Visit: Yes Status: Acute Patient has Aguilar catheter drainage and SPT tube that is clamped. Overall management per urology. Qualifiers: Urethral stricture sex-location: male urethra-bulbous Qualified Code(s): N35.812 - Other urethral bulbous stricture, male Subjective Patient reports: other (She admits to nausea and vomiting yesterday. Did have a bowel movement yesterday. Pain is improving. No current nausea.) Objective Vital Signs - Last 8 Hours Temp Pulse Resp BP Pulse Ox 03/04/19 07:13 97.5 F L 88 15 117/73 97 03/04/19 03:10 97.9 F 83 14 118/74 95 Intake and Output 03/03/19 03/04/19 03/04/19 23:59 07:59 15:59 Intake Total 150 / 250 100 / 100 Output Total 820 / 1355 175 / 175 Balance -670 / -1105 -75 / -75 Intake: IV Fluids 150 / 250 Diflucan Premix 200 MG/100 ML 50 / 50 100 mg In 50 ml @ 50 mls/hr IVPB SuTuThSa@1800 [facility] Rx#: [id number] Zosyn 3.375 GM In 0.9 % Sodium 100 / 200 Chloride (Mini-Bag +) 100 ML @ 25 mls/hr IVPB Q12HR [facility] Rx#: [id number] Oral 0 / 0 100 / 100 Output: Emesis 40 / 40 Catheter 700 / 1200 175 / 175 Wound Drainage 80 / 115 Right Lower Abdomen 80 / 115 Other: Weight 77.1 kg Patient Weight 03/04/19 23:59 Weight 77.1 kg - General physical appearance no distress - Respiratory normal expansion, normal respiratory effort - Abdomen Abdomen: Present: bowel sounds present, soft - Incision Incision: Present: clean and dry, intact (No drainage. No erythema.) - Labs 03/04/19 07:02 03/04/19 07:02 Diabetes panel 03/04/19 Range/Units 07:02 Sodium 140 (136-145) mEq/L Potassium 3.5 (3.5-5.1) mEq/L Chloride 100 (98-107) mEq/L Carbon Dioxide 22 L (23-29) mEq/L BUN 47 H (8-23) mg/dL Creatinine 8.23 H (0.70-1.30) mg/dL Glucose 85 (70-105) mg/dL Calcium 10.5 H (8.6-10.3) mg/dL Calcium panel 03/04/19 Range/Units 07:02 Calcium 10.5 H (8.6-10.3) mg/dL Pituitary panel 03/04/19 Range/Units 07:02 Sodium 140 (136-145) mEq/L Potassium 3.5 (3.5-5.1) mEq/L Chloride 100 (98-107) mEq/L Carbon Dioxide 22 L (23-29) mEq/L BUN 47 H (8-23) mg/dL Creatinine 8.23 H (0.70-1.30) mg/dL Glucose 85 (70-105) mg/dL Calcium 10.5 H (8.6-10.3) mg/dL Adrenal panel 03/04/19 Range/Units 07:02 Sodium 140 (136-145) mEq/L Potassium 3.5 (3.5-5.1) mEq/L Chloride 100 (98-107) mEq/L Carbon Dioxide 22 L (23-29) mEq/L BUN 47 H (8-23) mg/dL Creatinine 8.23 H (0.70-1.30) mg/dL Glucose 85 (70-105) mg/dL Calcium 10.5 H (8.6-10.3) mg/dL Consult Discharge Plan - Plan Referrals: NONE,PCP [Primary Care Provider] -
[2019-03-04] MEDS ORDERED: 0.9 % Sodium Chloride 1,000 ML ONE (11:51)
--- NOTE | 2019-03-04 12:38 | Internal Med Progress Note ---
Hospitalist Progress Note - Encounter Date of Encounter: 03/04/19 Time of Encounter: 11:15 - Subjective Interval History: Patient seen during dialysis. He denies any new complaints at this time. Tolerating full liquid diet. Has passed flatus today. No fever or chills reported overnight. No other new complaints at this time. - Exam Vitals: Temp Pulse Resp BP Pulse Ox 98.1 F 88 16 113/70 97 03/04/19 09:40 03/04/19 07:13 03/04/19 09:40 03/04/19 09:40 03/04/19 07:13 Exam: General: Patient is alert, no acute distress, oriented x 3 ENT: Mucous membranes moist Respiratory: Decreased breath sounds at both bases Cardiovascular: Regular rate and rhythm. s1 and s2 normal No clicks, rubs, gallops, or murmurs. No pedal edema Abdomen: Abdomen is soft, nontender. Bowel sounds are present Musculoskeletal: Spontaneously moving all extremities Skin: warm, dry, intact. Neuro: Alert oriented x 3 normal cranial nerves, no focal deficits - Assessment and Plan (1) Acute appendicitis Current Visit: Yes Status: Acute (2) ESRD (end stage renal disease) Current Visit: Yes Status: Chronic (3) Sepsis Current Visit: Yes Status: Resolved (4) Hydroureteronephrosis Current Visit: Yes Status: Acute (5) Urethral stricture Current Visit: Yes Status: Acute (6) HLD (hyperlipidemia) Current Visit: Yes Status: Acute DVT Prophylaxis: On subcutaneous heparin - Summary of Assessment and Plan Summary of Assessment and Plan: Acute appendicitis with perforation: Status post ileocecectomy and pvne-ju-[id number] anastomosis postop day 8. Patient passing flatus. Surgery following. Slowly advancing diet. On exam he does have bowel sounds. Follow surgery recommendations. Urethral stricture: Status post cystoscopy, dilation of urethral stricture and suprapubic cystostomy postop day 8. End-stage renal disease: On hemodialysis. Awaiting placement to skilled rehabilitation. WBC count is improving. Patient currently on Zosyn and Diflucan per surgery recommendations. Discharge dependent on return of bowel function. - Time Spent with Patient Total time spent is greater than 50% in coordination of care (as documented) at patient's floor/unit and/or counseling patient: Internal Medicine: Result - Labs CBC & Chem 7: 03/04/19 07:02 03/04/19 07:02 Labs: Short CBC 03/04/19 Range/Units 07:02 WBC 14.3 H (4.3-11.1) K/mcL Hgb 9.7 L (12.9-16.9) g/dL Hct 29.6 L (37.5-50.1) % Plt Count 345 (140-400) K/mcL Neutrophils # 10.9 H (1.6-8.9) K/mcL BMP 03/04/19 07:02 Sodium 140 Potassium 3.5 Chloride 100 Carbon Dioxide 22 L BUN 47 H Creatinine 8.23 H Glucose 85 Calcium 10.5 H - ABG Interpretation ABG results: PT/INR, D-dimer PT 12.8 Seconds (9.4-12.1) H 02/21/19 16:27 - Impressions Impressions KUB X-Ray 03/02/19 07:53 IMPRESSION: 1. Postsurgical changes, with surgical drain projecting over the right abdomen. 2. Gaseous distention of small bowel and colon. These findings favor ileus, although evolving partial small bowel obstruction is not excluded. Continued radiographic follow-up recommended. D/ / 03/02/2019 08:38:10 Emiliano Friend MD / Tracy Queen Interpreting Provider: Emiliano Friend MD Consult Discharge Plan - Plan Referrals: NONE,PCP [Primary Care Provider] - (1) Acute appendicitis Qualifiers: Acute appendicitis type: with localized peritonitis Appendicitis gangrene presence: without gangrene Appendicitis perforation presence: with perforation Appendicitis abscess presence: with abscess Qualified Code(s): K35.33 - Acute appendicitis with perforation and localized peritonitis, with abscess (3) Sepsis Qualifiers: Sepsis type: Escherichia coli Qualified Code(s): A41.51 - Sepsis due to Escherichia coli [E. coli] (5) Urethral stricture Qualifiers: Urethral stricture sex-location: male urethra-bulbous Qualified Code(s): N35.812 - Other urethral bulbous stricture, male
[2019-03-04] MEDS: Metoclopramide 10 MG/2 ML VIAL IVP SCH ×2 (13:49→17:21)
[2019-03-04] MEDS: OXYCODONE Oral CONC 10 MG/0.5 ML ORAL.SYG SL PRN (14:27)
[2019-03-04] MEDS: Fluconazole 200 MG/100 ML 200 MG/100 ML BAG IVPB SCH (17:21)
--- NOTE | 2019-03-04 23:31 | Nephrology Progress Note ---
Date of Encounter: 03/04/19 Time of Encounter: 12:00 - Assessment and Plan (1) ESRD (end stage renal disease) Current Visit: Yes Status: Chronic (2) Hydroureteronephrosis Current Visit: Yes Status: Acute (3) Bladder outlet obstruction Current Visit: Yes Status: Acute (4) Hypertension Current Visit: Yes Status: Chronic Qualifiers: Hypertension type: essential hypertension Qualified Code(s): I10 - Essential (primary) hypertension (5) Acute appendicitis Current Visit: Yes Status: Acute Qualifiers: Acute appendicitis type: with localized peritonitis Appendicitis gangrene presence: without gangrene Appendicitis perforation presence: with perforation Appendicitis abscess presence: with abscess Qualified Code(s): K35.33 - Acute appendicitis with perforation and localized peritonitis, with abscess Subjective Principal diagnosis: ESRD Interval history: Pt seen and examined on HD, doing well with no new complaints. Ate full breakfast today per pt. Pain controlled Objective - Vital Signs Vital signs: Vital Signs Temp Pulse Resp BP Pulse Ox 03/04/19 22:25 98.6 F 97 14 106/66 94 03/04/19 18:57 98.1 F 103 14 109/66 97 03/04/19 14:42 98.2 F 111 14 117/78 03/04/19 12:56 97.9 F 16 111/62 03/04/19 12:40 105/63 03/04/19 12:25 96/59 03/04/19 12:10 105/65 03/04/19 11:55 99/62 03/04/19 11:40 103/68 03/04/19 11:25 98/61 03/04/19 11:10 100/61 03/04/19 10:55 88/59 03/04/19 10:40 102/63 03/04/19 10:25 104/65 03/04/19 10:10 114/66 03/04/19 09:55 107/66 03/04/19 09:40 98.1 F 16 113/70 03/04/19 07:13 97.5 F L 88 15 117/73 97 03/04/19 03:10 97.9 F 83 14 118/74 95 Intake and Output 03/04/19 03/04/19 03/04/19 07:59 15:59 23:59 Intake Total 100 / 2120 1540 / 2120 480 / 2120 Output Total 175 / 3125 2950 / 3125 0 / 3125 Balance -75 / -1005 -1410 / -1005 480 / -1005 Intake: IV Fluids 100 / 100 Zosyn 3.375 GM In 0.9 % Sodium 100 / 100 Chloride (Mini-Bag +) 100 ML @ 25 mls/hr IVPB Q12HR [facility] Rx#: [id number] Oral 100 / 1420 840 / 1420 480 / 1420 Intake, Rinseback and Flushes 600 / 600 Output: Urine 0 / 0 Total Dialysis (HD) Output 2600 / 2600 Catheter 175 / 525 350 / 525 0 / 525 Other: Meal Lunch Dinner Percent of Meal Consumed 20% 0% Weight 77.1 kg Hemodialysis Net Fluid Removed 2000 (mL) Patient Weight 03/04/19 23:59 Weight 77.1 kg - Lab 03/04/19 07:02 03/04/19 07:02 Consult Discharge Plan - Plan Referrals: NONE,PCP [Primary Care Provider] -
[2019-03-05] MEDS: Metoclopramide 10 MG/2 ML VIAL IVP SCH ×5 (00:36→23:44)
[2019-03-05] MEDS: Piperacillin/Tazobactam 3.375 GM in 0.9 % Sodium Chloride Mini Bag 100 ML IVPB SCH ×2 (06:18→18:49)
[2019-03-05] MEDS: *HR* Heparin 5,000 UNIT/ML VIAL SQ SCH ×2 (06:18→18:47)
[2019-03-05 07:45] LABS: Calcium 10.2 mg/dL (8.6-10.3); Potassium 3.5 mEq/L (3.5-5.1)
[2019-03-05 07:46] LABS: Basophils # 0.1 K/mcL (0.0-0.2); Basophils % 0.4 %; Eosinophils # 0.4 K/mcL (0.0-0.6); Eosinophils % 2.9 %; Hematocrit 30.2 % (37.5-50.1); Hemoglobin 9.7 g/dL (12.9-16.9); Immature Granulocytes % 2.1 % (0-4); Lymphocytes # 1.3 K/mcL (0.6-4.6); Lymphocytes % 9.7 %; Mean Corpuscular HGB Conc 32.1 g/dL (31.6-35.5); Mean Corpuscular Hemoglobin 29.3 pg (28.0-33.3); Mean Corpuscular Volume 91.2 fL (83.0-100.0); Mean Platelet Volume 10.2 fL (9.4-12.4); Monocytes % 7.2 %; Neutrophils # 10.5 K/mcL (1.6-8.9); Platelet Count 363 K/mcL (140-400); Red Blood Count 3.31 M/mcL (4.19-5.50); Red Cell Distribution Width 13.6 % (11.5-14.5); Segmented Neutrophils % 77.7 %
--- NOTE | 2019-03-05 08:44 | Infectious Disease Progress No ---
ID Progress Note Date of Encounter: 03/04/19 Time of Encounter: 12:00 - Subjective Subjective: Patient seen and examined in the HD unit. No acute events noted overnight. Patient states he feels better today. Denies fevers, chills, rigors. Denies chest pain, shortness of breath, or cough. Denies nausea, but does endorse some reflux with hiccuping and some vomiting overnight with dinner, but none this morning after breakfast. Has not had lunch yet. Denies vomiting. Reports abdominal distention improved and denies abdominal pain. Aguilar catheter remains patent. Denies oral thrush or skin rashes. Reports BM overnight. - Objective CBC & Chem 7: 03/06/19 02:33 03/06/19 02:33 - Line Documentation Line Documentation: Aguilar Catheter (Draining blood-tinged dark yellow urine.) - Exam Vitals: Temp Pulse Resp BP Pulse Ox 98 F 91 16 117/72 95 03/05/19 07:48 03/05/19 07:48 03/05/19 07:48 03/05/19 07:48 03/05/19 07:48 Exam: Head: Atraumatic, normal inspection, normocephalic. Eye: EOMI, PERRLA, no scleral icterus noted. ENT: Mucous membranes moist. No odontogenic infection noted. Neck: Normal inspection, no meningismus. Respiratory: Clear to auscultation. No rales, respiratory distress, rhonchi, or wheezes noted. Cardiovascular: Regular rate and rhythm, S1 and S2 audible. No murmurs, rubs, or gallops. GI: Soft, non-distended, normal bowel sounds. Midline abdominal incision open to air with sloane intact. Wound edges well approximated without erythema, warmth, or drainage. Abdomen non-tender. Surgical trocar site noted to the left lower quadrant with sloane intact. Suprapubic catheter clamped and Aguilar catheter draining clear yellow urine. SMITHA drain noted to the right abdomen with serous drainage. Extremities: No joint swelling, pedal edema, or tenderness noted. AV fistula noted to the right upper extremity currently accessed for HD. Neurological: Alert, oriented 3, no focal deficits. Psychiatric: normal affect, normal mood. Skin: Dry, intact, warm. Normal color. No rashes. - Assessment and Plan (1) Sepsis Current Visit: Yes Status: Resolved The patient had 3 sepsis criteria including tachycardia, leukocytosis, and fever. Likely secondary to acute appendicitis with perforation and intra-abdominal abscess. Improved. Tachycardia improved. Afebrile. Leukocytosis persists, but i mproved. Blood cultures drawn 02/21/19 are negative 2 sets. Qualifiers: Sepsis type: Escherichia coli Qualified Code(s): A41.51 - Sepsis due to Escherichia coli [E. coli] SNOMED Code(s): 06458572 (2) Acute appendicitis Current Visit: Yes Status: Acute CT of the abdomen and pelvis 02/21/19 showed acute appendicitis with a single bubble of extraluminal gas adjacent to the appendix suggesting perforation, although there was no definitive abscess. Acute care surgery consult. Opted for conservative therapy initially, but patient's clinical picture worsened. Repeat CT of the abdomen and pelvis 02/24/19 again showed a perforated appendix with interval development of an abscess collection seen in the right lower quadrant along the appendix measuring 2.8 x 1.6 cm with direct continuity of the abscess collection in the perforated wall of the appendix. A small portion of the measured abscess extended superiorly adjacent to the cecum, with cecal wall thickening and inflammatory changes seen surrounding the appendix. Acute care surgery opted to take the patient to the operating room and performed an open ileocecectomy with [id number]-dt-vvbl anastomosis 02/24/[address] Rc Roth. Operative note reviewed. Currently on Zosyn and fluconazole. Qualifiers: Acute appendicitis type: with localized peritonitis Appendicitis gangrene presence: without gangrene Appendicitis perforation presence: with perforation Appendicitis abscess presence: with abscess Qualified Code(s): K35.33 - Acute appendicitis with perforation and localized peritonitis, with abscess SNOMED Code(s): 26606655 (3) Intra-abdominal abscess Current Visit: Yes Status: Acute Secondary to perforated appendicitis. Noted on CT scan completed 02/24/19. Status post open ileocecectomy with ylby-ne-yuvt anastomosis 02/24/[address] Irwin. Currently on IV Zosyn and fluconazole. SNOMED Code(s): 47173374 (4) Abdominal pain Current Visit: Yes Status: Acute Likely secondary to perforated appendicitis with abscess and urinary retention. Improved. Pain management per the primary and surgery teams. Qualifiers: Abdominal location: right lower quadrant Qualified Code(s): R10.31 - Right lower quadrant pain SNOMED Code(s): 38784839 (5) Hydroureteronephrosis Current Visit: Yes Status: Acute Likely secondary to chronic bladder outlet obstruction. Noted on CT scan completed 02/21/19. Urology consulted. Unable to pass Aguilar catheter, so bedside suprapubic catheter placement performed . While in the operating room for the perforated appendix, underwent cystoscopy with dilation of urethral stricture and suprapubic cystostomy by Dr. Metzger. SNOMED Code(s): 21091691 (6) Bladder outlet obstruction Current Visit: Yes Status: Acute Secondary to urethral stricture. Status post urethral stricture dilation 02/24/[address] Metzger. SNOMED Code(s): 181693986 (7) Urethral stricture Current Visit: Yes Status: Acute Qualifiers: Urethral stricture sex-location: male urethra-bulbous Qualified Code(s): N35.812 - Other urethral bulbous stricture, male SNOMED Code(s): 68702123 (8) Urinary retention Current Visit: Yes Status: Acute Secondary to urethral stricture and chronic bladder outlet obstruction. Resolved. SNOMED Code(s): 726223601 (9) ESRD (end stage renal disease) Current Visit: Yes Status: Chronic Nephrology consult and following. SNOMED Code(s): 53531058 (10) Hypertension Current Visit: Yes Status: Chronic Qualifiers: Hypertension type: essential hypertension Qualified Code(s): I10 - Essential (primary) hypertension SNOMED Code(s): 01290118 (11) Ileus following gastrointestinal surgery Current Visit: Yes Status: Acute Abdominal x-ray showed ileus versus partial small bowel obstruction. Resolved. Passing gas and having stools. Could be contributing to the patient's persistent leukocytosis. Further management per the acute care surgery team. SNOMED Code(s): 708886493 - Recommendations Recommendations: Continue to trend CBC. Diet, wound care, and postop management per the acute care surgery team. Continue Zosyn 3.375 g IV every 12 hours (dose-adjust for HD status). Continue fluconazole. Will ask pharmacy to assist with dosing. Duration of treatment depends on the clinical picture, but likely 14 days. Can likely transition to PO antibiotics when ready for discharge. Monitor renal function and does adjust antibiotics and medications for HD status. Consult Discharge Plan - Plan Instructions: Colectomy (DC) Additional Instructions: S/P Iliocecectomy General Surgical Discharge Instructions 1. No pushing, pulling, or lifting greater than 15 lbs for 6 weeks. 2. You may shower beginning today, but no tub baths, soaking, or swimming for 2 weeks. 3. You may resume driving when you are off narcotics and are safe to react in a car and released to do so by rehab. 4. Take the as needed Percocet. Take narcotics as directed. Do not take more narcotics then directed and do not share your narcotics with any other person. Do not drink alcohol while on narcotics. 5. Take stool softeners (Colace) or a water based laxative (Miralax) while taking narcotics. You may hold for loose stools. 6. Report any fevers greater than 100.5F, increase abdominal discomfort, drainage that looks like pus, increased redness or pain at the surgical site, or any vomiting. 7. Report any pain in the calves, shortness of breath, or rapid heartbeat. 8. Follow-up in the office as directed. 9. If you were prescribed antibiotics, do not stop them without talking to your provider. Referrals: Cleopatra Rivas, [employer] [Advanced Practice Nurse] - 03/17/19 1:45 pm NONE,PCP [Primary Care Provider] - - Attending Attestation I have personally performed a face to face evaluation on this patient. I have reviewed and agree with the care plan. History and Exam by me shows: Assessment and plan: 1.Sepsis secondary to acute appendicitis with perforation 2.Acute appendicitis with perforation 3.Intra-abdominal abscess status post open ileocecectomy with xalh-em-veyo anastomosis 02/24/19 by . 4.Ureter nephrosis secondary to bladder outlet obstruction 5.Bladder outlet obstruction 6.Urethral stricture Recommendations: continue zosyn and diflucan await repeat labs from today
[2019-03-05] MEDS ORDERED: *HR* OxyCODONE/APAP 5/325 TABLET PO PRN (08:58)
--- NOTE | 2019-03-05 09:33 | AcuteCareSurgery Progress Note ---
Date of Encounter: 03/05/19 Time of Encounter: 07:30 - Assessment and Plan (1) Acute appendicitis Current Visit: Yes Status: Acute POD# 9 Ileocectomy for ruptured appendicitis. Advance diet to full liquids. Ileus resolving. Increase activity. Consult trimming caser for DC planning. Qualifiers: Acute appendicitis type: with localized peritonitis Appendicitis gangrene presence: without gangrene Appendicitis perforation presence: with perforation Appendicitis abscess presence: with abscess Qualified Code(s): K35.33 - Acute appendicitis with perforation and localized peritonitis, with abscess (2) ESRD (end stage renal disease) Current Visit: Yes Status: Chronic (3) Urethral stricture Current Visit: Yes Status: Acute s/p cystoscopy with urethral dilation and hickey placement. Pt will go home with both catheters, hickey to gravity and SP plugged. Qualifiers: Urethral stricture sex-location: male urethra-bulbous Qualified Code(s): N35.812 - Other urethral bulbous stricture, male (4) Urinary retention Current Visit: Yes Status: Acute see above; s/p SP catheter placement Subjective Patient reports: no new complaints, feels better, pain is less, tolerating liquids well, flatus, bowel movement, afebrile Objective Vital Signs - Last 8 Hours Temp Pulse Resp BP Pulse Ox 03/05/19 07:48 98 F 91 16 117/72 95 03/05/19 04:01 98.5 F 88 16 138/75 95 Intake and Output 03/04/19 03/05/19 03/05/19 23:59 07:59 15:59 Intake Total 580 / 2220 0 / 0 Output Total 0 / 3125 500 / 500 Balance 580 / -905 -500 / -500 Intake: IV Fluids 100 / 200 Zosyn 3.375 GM In 0.9 % Sodium 100 / 200 Chloride (Mini-Bag +) 100 ML @ 25 mls/hr IVPB Q12HR [facility] Rx#: [id number] Oral 480 / 1420 0 / 0 Output: Urine 0 / 0 350 / 350 Catheter 0 / 525 150 / 150 Other: Meal Dinner Percent of Meal Consumed 0% Weight 78.9 kg Patient Weight 03/05/19 23:59 Weight 78.9 kg - General physical appearance no distress, no pain - Eyes PERRL, normal ocular movement - ENT normal mucosa, no congestion - Neck Neck exam: trachea midline, no venous distension - Respiratory normal expansion, normal respiratory effort, clear to auscultation - Cardiovascular Cardiovascular exam: Present: RRR - Abdomen Abdomen: Present: bowel sounds present, soft, non tender Additional Comments: SMITHA has been removed - Incision Incision: Present: clean and dry, intact - Genitourinary other (Hickey to gravity and SP plugged) - Integumentary no rash - Neurologic CN 2-12 grossly intact, normal coordination - Musculoskeletal normal posture - Psychiatric oriented to time, oriented to person, oriented to place - Labs 03/05/19 06:49 03/05/19 06:49 Diabetes panel 03/05/19 Range/Units 06:49 Sodium 139 (136-145) mEq/L Potassium 3.5 (3.5-5.1) mEq/L Chloride 96 L (98-107) mEq/L Carbon Dioxide 32 H (23-29) mEq/L BUN 32 H (8-23) mg/dL Creatinine 6.37 H (0.70-1.30) mg/dL Glucose 94 (70-105) mg/dL Calcium 10.2 (8.6-10.3) mg/dL Calcium panel 03/05/19 Range/Units 06:49 Calcium 10.2 (8.6-10.3) mg/dL Pituitary panel 03/05/19 Range/Units 06:49 Sodium 139 (136-145) mEq/L Potassium 3.5 (3.5-5.1) mEq/L Chloride 96 L (98-107) mEq/L Carbon Dioxide 32 H (23-29) mEq/L BUN 32 H (8-23) mg/dL Creatinine 6.37 H (0.70-1.30) mg/dL Glucose 94 (70-105) mg/dL Calcium 10.2 (8.6-10.3) mg/dL Adrenal panel 03/05/19 Range/Units 06:49 Sodium 139 (136-145) mEq/L Potassium 3.5 (3.5-5.1) mEq/L Chloride 96 L (98-107) mEq/L Carbon Dioxide 32 H (23-29) mEq/L BUN 32 H (8-23) mg/dL Creatinine 6.37 H (0.70-1.30) mg/dL Glucose 94 (70-105) mg/dL Calcium 10.2 (8.6-10.3) mg/dL Consult Discharge Plan - Plan Referrals: NONE,PCP [Primary Care Provider] -
--- NOTE | 2019-03-05 12:26 | Infectious Disease Progress No ---
ID Progress Note Date of Encounter: 03/05/19 Time of Encounter: 10:30 - Subjective Subjective: Patient seen and examined. No acute events noted overnight. Patient states he feels better today. Denies fevers, chills, rigors. Denies chest pain, shortness of breath, or cough. Denies nausea, but does endorse some reflux with hiccuping. Denies vomiting overnight and tolerating full liquid diet. Reports abdominal distention improved and denies abdominal pain. Aguilar catheter remains patent. Denies oral thrush or skin rashes. Reports last BM two days ago, but is passing gas. - Objective CBC & Chem 7: 03/06/19 02:33 03/06/19 02:33 - Line Documentation Line Documentation: Aguilar Catheter (Draining blood-tinged dark yellow urine.) - Exam Vitals: Temp Pulse Resp BP Pulse Ox 98.1 F 98 16 118/70 94 03/05/19 11:04 03/05/19 11:04 03/05/19 11:04 03/05/19 11:04 03/05/19 11:04 Exam: Head: Atraumatic, normal inspection, normocephalic. Eye: EOMI, PERRLA, no scleral icterus noted. ENT: Mucous membranes moist. No odontogenic infection noted. Neck: Normal inspection, no meningismus. Respiratory: Clear to auscultation. No rales, respiratory distress, rhonchi, or wheezes noted. Cardiovascular: Regular rate and rhythm, S1 and S2 audible. No murmurs, rubs, or gallops. GI: Soft, non-distended, normal bowel sounds. Midline abdominal incision open to air with sloane intact. Wound edges well approximated without erythema, warmth, or drainage. Abdomen non-tender. Surgical trocar site noted to the left lower quadrant with sloane intact. Suprapubic catheter clamped and Aguilar catheter draining clear yellow urine. Extremities: No joint swelling, pedal edema, or tenderness noted. AV fistula noted to the right upper extremity +/+. Neurological: Alert, oriented 3, no focal deficits. Psychiatric: normal affect, normal mood. Skin: Dry, intact, warm. Normal color. No rashes. - Assessment and Plan (1) Sepsis Current Visit: Yes Status: Resolved The patient had 3 sepsis criteria including tachycardia, leukocytosis, and fever. Likely secondary to acute appendicitis with perforation and intra-abdominal abscess. Improved. Tachycardia improved. Afebrile. Leukocytosis persists, but improved. Blood cultures drawn 02/21/19 are negative 2 sets. Qualifiers: Sepsis type: Escherichia coli Qualified Code(s): A41.51 - Sepsis due to Escherichia coli [E. coli] SNOMED Code(s): 33041137 (2) Acute appendicitis Current Visit: Yes Status: Acute CT of the abdomen and pelvis 02/21/19 showed acute appendicitis with a single bubble of extraluminal gas adjacent to the appendix suggesting perforation, although there was no definitive abscess. Acute care surgery consult. Opted for conservative therapy initially, but patient's clinical picture worsened. Repeat CT of the abdomen and pelvis 02/24/19 again showed a perforated appendix with interval development of an abscess collection seen in the right lower quadrant along the appendix measuring 2.8 x 1.6 cm with direct continuity of the abscess collection in the perforated wall of the appendix. A small portion of the measured abscess extended superiorly adjacent to the cecum, with cecal wall thickening and inflammatory changes seen surrounding the appendix. Acute care surgery opted to take the patient to the operating room and performed an open ileocecectomy with kxul-do-raid anastomosis 02/24/[address] Rc Roth. Operative note reviewed. Currently on Zosyn and fluconazole. Qualifiers: Acute appendicitis type: with localized peritonitis Appendicitis gangrene presence: without gangrene Appendicitis perforation presence: with perforation Appendicitis abscess presence: with abscess Qualified Code(s): K35.33 - Acute appendicitis with perforation and localized peritonitis, with abscess SNOMED Code(s): 68191551 (3) Intra-abdominal abscess Current Visit: Yes Status: Acute Secondary to perforated appendicitis. Noted on CT scan completed 02/24/19. Status post open ileocecectomy with ehpg-en-klwk anastomosis 02/24/[address] Irwin. Currently on IV Zosyn and fluconazole. SNOMED Code(s): 81229655 (4) Abdominal pain Current Visit: Yes Status: Acute Likely secondary to perforated appendicitis with abscess and urinary retention. Improved. Pain management per the primary and surgery teams. Qualifiers: Abdominal location: right lower quadrant Qualified Code(s): R10.31 - Right lower quadrant pain SNOMED Code(s): 32377761 (5) Hydroureteronephrosis Current Visit: Yes Status: Acute Likely secondary to chronic bladder outlet obstruction. Noted on CT scan completed 02/21/19. Urology consulted. Unable to pass Aguilar catheter, so bedside suprapubic catheter placement performed . While in the operating room for the perforated appendix, underwent cystoscopy with dilation of urethral stricture and suprapubic cystostomy by Dr. Metzger. SNOMED Code(s): 54081557 (6) Bladder outlet obstruction Current Visit: Yes Status: Acute Secondary to urethral stricture. Status post urethral stricture dilation 02/24/[address] Metzger. SNOMED Code(s): 340040849 (7) Urethral stricture Current Visit: Yes Status: Acute Qualifiers: Urethral stricture sex-location: male urethra-bulbous Qualified Code(s): N35.812 - Other urethral bulbous stricture, male SNOMED Code(s): 08974357 (8) Urinary retention Current Visit: Yes Status: Acute Secondary to urethral stricture and chronic bladder outlet obstruction. Resolved. SNOMED Code(s): 678033072 (9) ESRD (end stage renal disease) Current Visit: Yes Status: Chronic Nephrology consult and following. SNOMED Code(s): 24676015 (10) Hypertension Current Visit: Yes Status: Chronic Qualifiers: Hypertension type: essential hypertension Qualified Code(s): I10 - Essen tial (primary) hypertension SNOMED Code(s): 03730571 (11) Ileus following gastrointestinal surgery Current Visit: Yes Status: Acute Abdominal x-ray showed ileus versus partial small bowel obstruction. Resolved. Passing gas and having stools. Could be contributing to the patient's persistent leukocytosis. Further management per the acute care surgery team. SNOMED Code(s): 643685834 - Recommendations Recommendations: Continue to trend CBC. Diet, wound care, and postop management per the acute care surgery team. Continue Zosyn 3.375 g IV every 12 hours (dose-adjust for HD status). Continue fluconazole. Will ask pharmacy to assist with dosing. Duration of treatment depends on the clinical picture, but likely 14 days. Can likely transition to PO antibiotics when ready for discharge. Monitor renal function and does adjust antibiotics and medications for HD status. Consult Discharge Plan - Plan Instructions: Colectomy (DC) Additional Instructions: S/P Iliocecectomy General Surgical Discharge Instructions 1. No pushing, pulling, or lifting greater than 15 lbs for 6 weeks. 2. You may shower beginning today, but no tub baths, soaking, or swimming for 2 weeks. 3. You may resume driving when you are off narcotics and are safe to react in a car and released to do so by rehab. 4. Take the as needed Percocet. Take narcotics as directed. Do not take more narcotics then directed and do not share your narcotics with any other person. Do not drink alcohol while on narcotics. 5. Take stool softeners (Colace) or a water based laxative (Miralax) while taking narcotics. You may hold for loose stools. 6. Report any fevers greater than 100.5F, increase abdominal discomfort, drainage that looks like pus, increased redness or pain at the surgical site, or any vomiting. 7. Report any pain in the calves, shortness of breath, or rapid heartbeat. 8. Follow-up in the office as directed. 9. If you were prescribed antibiotics, do not stop them without talking to your provider. Referrals: Cleopatra Rivas, [employer]PLI[employer]SEMBLER [Advanced Practice Nurse] - 03/17/19 1:45 pm NONE,PCP [Primary Care Provider] - - Attending Attestation I have personally performed a face to face evaluation on this patient. I have reviewed and agree with the care plan. History and Exam by me shows: Assessment and plan: 1.Sepsis secondary to acute appendicitis with perforation 2.Acute appendicitis with perforation 3.Intra-abdominal abscess status post open ileocecectomy with errn-fw-wffa anastomosis 02/24/19 by . 4.Ureter nephrosis secondary to bladder outlet obstruction 5.Bladder outlet obstruction 6.Urethral stricture Recommendations: continue zosyn and diflucan await repeat labs from today
--- NOTE | 2019-03-05 14:03 | Internal Med Progress Note ---
Hospitalist Progress Note - Encounter Date of Encounter: 03/05/19 Time of Encounter: 14:00 - Subjective Interval History: He should not is awake and alert. Doing well overall. Tolerating full liquid diet. Continues to pass flatus. No bowel movement today. - Exam Vitals: Temp Pulse Resp BP Pulse Ox 98.1 F 98 16 118/70 94 03/05/19 11:04 03/05/19 11:04 03/05/19 11:04 03/05/19 11:04 03/05/19 11:04 Exam: General: Patient is alert, no acute distress, oriented x 3 ENT: Mucous membranes moist Respiratory: Good respiratory effort. Normal breath sounds. No wheezing or crackles. Cardiovascular: Regular rate and rhythm. s1 and s2 normal No clicks, rubs, gall ops, or murmurs. No pedal edema Abdomen: Abdomen is soft, mild tenderness at surgical site.. Bowel sounds are present Musculoskeletal: Spontaneously moving all extremities Skin: warm, dry, intact. Neuro: Alert oriented x 3 normal cranial nerves, no focal deficits - Assessment and Plan (1) Acute appendicitis Current Visit: Yes Status: Acute (2) ESRD (end stage renal disease) Current Visit: Yes Status: Chronic (3) Sepsis Current Visit: Yes Status: Resolved (4) Hydroureteronephrosis Current Visit: Yes Status: Acute (5) Urethral stricture Current Visit: Yes Status: Acute (6) HLD (hyperlipidemia) Current Visit: Yes Status: Acute DVT Prophylaxis: Continue subcutaneous heparin - Summary of Assessment and Plan Summary of Assessment and Plan: Acute appendicitis with perforation: Status post ileocecectomy and bbdq-ya-khez anastomosis postop day 9. Patient continues to pass flatus. Bowel sounds aud ible. Surgery following. Tolerating full liquid diet. Encouraged ambulation with PTOT. On Zosyn and Diflucan intravenously. Plan to transition to oral antibiotics at discharge. Per infectious disease recommendations, patient will need 14 days of antibiotic therapy. Urethral stricture: Status post cystoscopy, dilation of urethral stricture and suprapubic cystostomy postop day 9. End-stage renal disease: On hemodialysis. Dialyzed yesterday. No acute issues. Awaiting placement to skilled rehabilitation. Discharge dependent on clearance from surgery and return of bowel function. - Time Spent with Patient Total time spent is greater than 50% in coordination of care (as documented) at patient's floor/unit and/or counseling patient: Internal Medicine: Result - Labs CBC & Chem 7: 03/05/19 06:49 03/05/19 06:49 Labs: Short CBC 03/05/19 Range/Units 06:49 WBC 13.5 H (4.3-11.1) K/mcL Hgb 9.7 L (12.9-16.9) g/dL Hct 30.2 L (37.5-50.1) % Plt Count 363 (140-400) K/mcL Neutrophils # 10.5 H (1.6-8.9) K/mcL BMP 03/05/19 06:49 Sodium 139 Potassium 3.5 Chloride 96 L Carbon Dioxide 32 H BUN 32 H Creatinine 6.37 H Glucose 94 Calcium 10.2 - ABG Interpretation ABG results: PT/INR, D-dimer PT 12.8 Seconds (9.4-12.1) H 02/21/19 16:27 Consult Discharge Plan - Plan Referrals: NONE,PCP [Primary Care Provider] - (1) Acute appendicitis Qualifiers: Acute appendicitis type: with localized peritonitis Appendicitis gangrene presence: without gangrene Appendicitis perforation presence: with perforation Appendicitis abscess presence: with abscess Qualified Code(s): K35.33 - Acute appendicitis with perforation and localized peritonitis, with abscess (3) Sepsis Qualifiers: Sepsis type: Escherichia coli Qualified Code(s): A41.51 - Sepsis due to Escherichia coli [E. coli] (5) Urethral stricture Qualifiers: Urethral stricture sex-location: male urethra-bulbous Qualified Code(s): N35.812 - Other urethral bulbous stricture, male
[2019-03-05] MEDS: Bisacodyl 10 MG RECTAL SUPPOSITORY RC SCH (14:12)
[2019-03-05] MEDS: Fluconazole 200 MG/100 ML 100 MG/50 ML BAG IVPB SCH (18:48)
[2019-03-05] MEDS: Acetaminophen 325 MG TABLET PO PRN (19:37)
--- NOTE | 2019-03-05 22:50 | Nephrology Progress Note ---
Date of Encounter: 03/05/19 Time of Encounter: 13:00 - Assessment and Plan (1) ESRD (end stage renal disease) Current Visit: Yes Status: Chronic s/p HD with next session planned for tomorrow Lytes stable Resume renal diet when able to eat, advanced as tolerated per surgery and primary team (2) Hydroureteronephrosis Current Visit: Yes Status: Acute s/p intervention with urology (3) Bladder outlet obstruction Current Visit: Yes Status: Acute s/p intervention with urology with suprapubic catheter and urethral dilation (4) Hypertension Current Visit: Yes Status: Chronic Qualifiers: Hypertension type: essential hypertension Qualified Code(s): I10 - Essential (primary) hypertension (5) Acute appendicitis Current Visit: Yes Status: Acute As per primary/surgery, post intervention POD #9 Qualifiers: Acute appendicitis type: with localized peritonitis Appendicitis gangrene presence: without gangrene Appendicitis perforation presence: with perforation Appendicitis abscess presence: with abscess Qualified Code(s): K35.33 - Acute appendicitis with perforation and localized peritonitis, with abscess Subjective Principal diagnosis: ESRD Interval history: Pt seen and examined s/p HD, doing well with no new complaints. Sitting up in chair. Continues to eat alittle more Objective - Vital Signs Vital signs: Vital Signs Temp Pulse Resp BP Pulse Ox 03/05/19 22:27 98.9 F 103 18 119/76 94 03/05/19 20:10 99.2 F 03/05/19 19:32 100.8 F H 119 17 127/78 93 03/05/19 15:30 97.2 F L 105 16 132/80 96 03/05/19 11:04 98.1 F 98 16 118/70 94 03/05/19 07:48 98 F 91 16 117/72 95 03/05/19 04:01 98.5 F 88 16 138/75 95 Intake and Output 03/05/19 03/05/19 03/05/19 07:59 15:59 23:59 Intake Total 0 / 1280 1060 / 1280 220 / 1280 Output Total 500 / 1450 600 / 1450 350 / 1450 Balance -500 / -170 460 / -170 -130 / -170 Intake: IV Fluids 100 / 200 100 / 200 Diflucan Premix 200 MG/100 ML 100 / 100 200 mg In 100 ml @ 100 mls/hr IVPB MOWEFR@1800 [facility] Rx#: [id number] Zosyn 3.375 GM In 0.9 % Sodium 100 / 100 Chloride (Mini-Bag +) 100 ML @ 25 mls/hr IVPB Q12HR [facility] Rx#: [id number] Oral 0 / 1080 960 / 1080 120 / 1080 Output: Urine 200 / 550 350 / 550 Catheter 500 / 900 400 / 900 Other: Meal Lunch Percent of Meal Consumed 100% Weight 78.9 kg Patient Weight 03/05/19 23:59 Weight 78.9 kg - General Appearance General appearance: Present: well-developed, well-nourished EENT: Present: ATNC, mucous membranes moist Neck: Present: no JVD, supple Respiratory: Present: clear Cardiology: Present: no edema, normal S1, normal S2 Dialysis Vascular Access: Arteriovenous Fistula thrill: Yes bruit: Yes Gastrointestinal: Present: no tenderness, no guarding, distended (mild, soft) Integumentary: Present: warm and dry Neurologic: Present: no focal deficit Musculoskeletal: Present: no deformities Psychiatric: Present: mood/affect appropriate, cooperative - Lab 03/06/19 02:33 03/06/19 02:33 Consult Discharge Plan - Plan Referrals: NONE,PCP [Primary Care Provider] -
[2019-03-06 02:58] LABS: Hematocrit 28.8 % (37.5-50.1); Hemoglobin 9.4 g/dL (12.9-16.9); Mean Corpuscular HGB Conc 32.6 g/dL (31.6-35.5); Mean Corpuscular Hemoglobin 29.6 pg (28.0-33.3); Mean Corpuscular Volume 90.6 fL (83.0-100.0); Mean Platelet Volume 10.1 fL (9.4-12.4); Platelet Count 370 K/mcL (140-400); Red Blood Count 3.18 M/mcL (4.19-5.50); Red Cell Distribution Width 13.4 % (11.5-14.5)
[2019-03-06 03:10] LABS: Calcium 10.4 mg/dL (8.6-10.3); Potassium 3.6 mEq/L (3.5-5.1)
[2019-03-06] MEDS: *HR* Heparin 5,000 UNIT/ML VIAL SQ SCH ×2 (05:53→17:46)
[2019-03-06] MEDS: Metoclopramide 10 MG/2 ML VIAL IVP SCH ×2 (05:53→11:52)
[2019-03-06] MEDS: Piperacillin/Tazobactam 3.375 GM in 0.9 % Sodium Chloride Mini Bag 100 ML IVPB SCH ×2 (05:53→17:47)
[2019-03-06] MEDS ORDERED: *HR* Heparin 10,000 UNIT/10 ML VIAL IV PRN (07:36)
[2019-03-06] MEDS ORDERED: 0.9 % Sodium Chloride 250 ML IVC PRN (07:36)
[2019-03-06] MEDS ORDERED: 0.9 % Sodium Chloride 1,000 ML PRIME SCH (07:45)
[2019-03-06] MEDS: Bisacodyl 10 MG RECTAL SUPPOSITORY RC SCH (08:16)
--- NOTE | 2019-03-06 09:38 | AcuteCareSurgery Progress Note ---
Date of Encounter: 03/06/19 Time of Encounter: 09:36 - Assessment and Plan (1) Acute appendicitis Current Visit: Yes Status: Acute 68M POD #10 s/p ileocectomy 2/2 perforated appendicitis now with prolonged ileus; having return of bowel function; afebrile okay to advance to soft diet activity as tolerated pain control as is chemical dvt prophylaxis cont abx will cont to follow Qualifiers: Acute appendicitis type: with localized peritonitis Appendicitis gangrene presence: without gangrene Appendicitis perforation presence: with perforation Appendicitis abscess presence: with abscess Qualified Code(s): K35.33 - A cute appendicitis with perforation and localized peritonitis, with abscess Subjective Patient reports: no new complaints, feels better, flatus, bowel movement Objective Vital Signs - Last 8 Hours Temp Pulse Resp BP Pulse Ox 03/06/19 07:56 98.4 F 83 18 134/80 96 03/06/19 06:23 94 Intake and Output 03/05/19 03/06/19 03/06/19 23:59 07:59 15:59 Intake Total 220 / 1280 790 / 790 Output Total 350 / 1450 350 / 350 Balance -130 / -170 440 / 440 Intake: IV Fluids 100 / 200 150 / 150 Diflucan Premix 200 MG/100 ML 100 / 100 50 / 50 100 mg In 50 ml @ 50 mls/hr IVPB SuTuThSa@1800 [facility] Rx#: [id number] Zosyn 3.375 GM In 0.9 % Sodium 100 / 100 Chloride (Mini-Bag +) 100 ML @ 25 mls/hr IVPB Q12HR [facility] Rx#: [id number] Oral 120 / 1080 640 / 640 Output: Urine 350 / 550 Catheter 350 / 350 - General physical appearance no distress - Respiratory normal expansion, normal respiratory effort - Cardiovascular Cardiovascular exam: Present: RRR - Abdomen Abdomen: Present: soft, non tender - Incision Incision: Present: clean and dry, intact - Neurologic CN 2-12 grossly intact - Labs 03/06/19 02:33 03/06/19 02:33 Diabetes panel 03/06/19 Range/Units 02:33 Sodium 137 (136-145) mEq/L Potassium 3.6 (3.5-5.1) mEq/L Chloride 96 L (98-107) mEq/L Carbon Dioxide 29 (23-29) mEq/L BUN 44 H (8-23) mg/dL Creatinine 8.05 H (0.70-1.30) mg/dL Glucose 102 (70-105) mg/dL Calcium 10.4 H (8.6-10.3) mg/dL Calcium panel 03/06/19 Range/Units 02:33 Calcium 10.4 H (8.6-10.3) mg/dL Pituitary panel 03/06/19 Range/Units 02:33 Sodium 137 (136-145) mEq/L Potassium 3.6 (3.5-5.1) mEq/L Chloride 96 L (98-107) mEq/L Carbon Dioxide 29 (23-29) mEq/L BUN 44 H (8-23) mg/dL Creatinine 8.05 H (0.70-1.30) mg/dL Glucose 102 (70-105) mg/dL Calcium 10.4 H (8.6-10.3) mg/dL Adrenal panel 03/06/19 Range/Units 02:33 Sodium 137 (136-145) mEq/L Potassium 3.6 (3.5-5.1) mEq/L Chloride 96 L (98-107) mEq/L Carbon Dioxide 29 (23-29) mEq/L BUN 44 H (8-23) mg/dL Creatinine 8.05 H (0.70-1.30) mg/dL Glucose 102 (70-105) mg/dL Calcium 10.4 H (8.6-10.3) mg/dL Consult Discharge Plan - Plan Referrals: NONE,PCP [Primary Care Provider] -
--- NOTE | 2019-03-06 11:15 | Infectious Disease Progress No ---
ID Progress Note Date of Encounter: 03/06/19 Time of Encounter: 09:40 - Subjective Subjective: Patient seen and examined in the HD unit. No acute events noted overnight. Patient states he feels well today. Denies fevers, chills, rigors, but noted to have fever with Tmax 100.8 overnight. Denies chest pain, shortness of breath, or cough. Denies nausea, but does endorse some reflux with hiccuping. Denies vomiting overnight and tolerating full liquid diet. Reports abdominal distention improved and denies abdominal pain. Aguilar catheter remains patent. Denies oral thrush or skin rashes. Reports small soft BM last night and states he is passing gas. - Objective CBC & Chem 7: 03/06/19 02:33 03/06/19 02:33 - Line Documentation Line Documentation: Aguilar Catheter (Draining blood-tinged dark yellow urine.) - Exam Vitals: Temp Pulse Resp BP Pulse Ox 98.4 F 83 18 134/80 96 03/06/19 07:56 03/06/19 07:56 03/06/19 07:56 03/06/19 07:56 03/06/19 07:56 Exam: Head: Atraumatic, normal inspection, normocephalic. Eye: EOMI, PERRLA, no scleral icterus noted. ENT: Mucous membranes moist. No odontogenic infection noted. Neck: Normal inspection, no meningismus. Respiratory: Clear to auscultation. No rales, respiratory distress, rhonchi, or wheezes noted. Cardiovascular: Regular rate and rhythm, S1 and S2 audible. No murmurs, rubs, or gallops. GI: Soft, non-distended, normal bowel sounds. Midline abdominal incision open to air with sloane intact. Wound edges well approximated without erythema, warmth, or drainage. Abdomen non-tender. Surgical trocar site noted to the left lower quadrant with sloane intact. Suprapubic catheter clamped and Aguilar catheter draining clear yellow urine. Extremities: No joint swelling, pedal edema, or tenderness noted. AV fistula noted to the right upper extremity, currently accessed for HD. Neurological: Alert, oriented 3, no focal deficits. Psychiatric: normal affect, normal mood. Skin: Dry, intact, warm. Normal color. No rashes. - Assessment and Plan (1) Sepsis Current Visit: Yes Status: Resolved The patient had 3 sepsis criteria including tachycardia, leukocytosis, and fever. Likely secondary to acute appendicitis with perforation and intra-abdominal abscess. Improved. Tachycardia improved. Tmax 100.8 overnight without associated chills or rigors. Leukocytosis persists, but improved. Blood cultures drawn 02/21/19 are negative 2 sets. Qualifiers: Sepsis type: Escherichia coli Qualified Code(s): A41.51 - Sepsis due to Escherichia coli [E. coli] SNOMED Code(s): 93806274 (2) Acute appendicitis Current Visit: Yes Status: Acute CT of the abdomen and pelvis 02/21/19 showed acute appendicitis with a single bubble of extraluminal gas adjacent to the appendix suggesting perforation, although there was no definitive abscess. Acute care surgery consult. Opted for conservative therapy initially, but patient's clinical picture worsened. Repeat CT of the abdomen and pelvis 02/24/19 again showed a perforated appendix with interval development of an abscess collection seen in the right lower quadrant along the appendix measuring 2.8 x 1.6 cm with direct continuity of the abscess collection in the perforated wall of the appendix. A small portion of the measured abscess extended superiorly adjacent to the cecum, with cecal wall thickening and inflammatory changes seen surrounding the appendix. Acute care surgery opted to take the patient to the operating room and performed an open ileocecectomy with [id number]-[id number] anastomosis 02/24/[address] Rc Roth. Operative note reviewed. Currently on Zosyn and fluconazole. Qualifiers: Acute appendicitis type: with localized peritonitis Appendicitis gangrene presence: without gangrene Appendicitis perforation presence: with perforation Appendicitis abscess presence: with abscess Qualified Code(s): K35.33 - A cute appendicitis with perforation and localized peritonitis, with abscess SNOMED Code(s): 96267359 (3) Intra-abdominal abscess Current Visit: Yes Status: Acute Secondary to perforated appendicitis. Noted on CT scan completed 02/24/19. Status post open ileocecectomy with vcup-ui-[id number] anastomosis 02/24/[address] Irwin. Currently on IV Zosyn and fluconazole. SNOMED Code(s): 63518343 (4) Abdominal pain Current Visit: Yes Status: Acute Likely secondary to perforated appendicitis with abscess and urinary retention. Improved. Pain management per the primary and surgery teams. Qualifiers: Abdominal location: right lower quadrant Qualified Code(s): R10.31 - Right lower quadrant pain SNOMED Code(s): 23877734 (5) Hydroureteronephrosis Current Visit: Yes Status: Acute Likely secondary to chronic bladder outlet obstruction. Noted on CT scan completed 02/21/19. Urology consulted. Unable to pass Aguilar catheter, so bedside suprapubic dinh ter placement performed . While in the operating room for the perforated appendix, underwent cystoscopy with dilation of urethral stricture and suprapubic cystostomy by Dr. Metzger. SNOMED Code(s): 56658118 (6) Bladder outlet obstruction Current Visit: Yes Status: Acute Secondary to urethral stricture. Status post urethral stricture dilation 02/24/[address] Metzger. SNOMED Code(s): 949225976 (7) Urethral stricture Current Visit: Yes Status: Acute Qualifiers: Urethral stricture sex-location: male urethra-bulbous Qualified Code(s): N35.812 - Other urethral bulbous stricture, male SNOMED Code(s): 58411667 (8) Urinary retention Current Visit: Yes Status: Acute Secondary to urethral stricture and chronic bladder outlet obstruction. Resolved. SNOMED Code(s): 885292368 (9) ESRD (end stage renal disease) Current Visit: Yes Status: Chronic Nephrology consult and following. SNOMED Code(s): 84430296 (10) Hypertension Current Visit: Yes Status: Chronic Qualifiers: Hypertension type: essential hypertension Qualified Code(s): I10 - Essential (primary) hypertension SNOMED Code(s): 29834578 (11) Ileus following gastrointestinal surgery Current Visit: Yes Status: Acute Abdominal x-ray showed ileus versus partial small bowel obstruction. Resolved. Passing gas and having stools. Could be contributing to the patient's persistent leukocytosis and low-grade fever. Repeat KUB 03/06/19 shows persistent ileus. Further management per the acute care surgery team. SNOMED Code(s): 934531978 - Recommendations Recommendations: Continue to trend CBC. Diet, wound care, and postop management per the acute care surgery team. Continue Zosyn 3.375 g IV every 12 hours (dose-adjust for HD status). (day 13/POD 10) Continue fluconazole. Will ask pharmacy to assist with dosing. (day 8) Duration of treatment depends on the clinical picture, but likely 14 days. Can likely transition to PO antibiotics when ready for discharge. Monitor renal function and does adjust antibiotics and medications for HD status. Consult Discharge Plan - Plan Referrals: NONE,PCP [Primary Care Provider] -
[2019-03-06] MEDS ORDERED: 0.9 % Sodium Chloride 1,000 ML ONE (11:47)
--- NOTE | 2019-03-06 14:03 | Event Note ---
Date of Encounter: 03/06/19 Time of Encounter: 14:02 Discharge instructions and follow-up appointment made. Per record review patient tolerated 100% of his lunch. He is OK discharge from a surgical perspective. Surgery will sign off at this time.
--- NOTE | 2019-03-06 15:26 | Internal Med Progress Note ---
Hospitalist Progress Note - Encounter Date of Encounter: 03/06/19 Time of Encounter: 15:16 - Subjective Interval History: Evaluated patient earlier today while he was in dialysis. Continues to tolerate full liquid diet. Has also been having bowel movements. No other complaints at this time. - Exam Vitals: Temp Pulse Resp BP Pulse Ox 98.3 F 92 18 103/66 94 03/06/19 14:13 03/06/19 14:13 03/06/19 14:13 03/06/19 14:13 03/06/19 14:13 Exam: General: Patient is alert, no acute distress, oriented x 3 Respiratory: Good respiratory effort. Normal breath sounds. No wheezing or crackles. Cardiovascular: Regular rate and rhythm. s1 and s2 normal No clicks, rubs, gallops, or murmurs. No pedal edema Abdomen: Abdomen is soft, mild tenderness at surgical site. Bowel sounds are present Musculoskeletal: Spontaneously moving all extremities Skin: warm, dry, intact. Neuro: Alert oriented x 3 normal cranial nerves, no focal deficits - Assessment and Plan (1) Acute appendicitis Current Visit: Yes Status: Acute (2) ESRD (end stage renal disease) Current Visit: Yes Status: Chronic (3) Sepsis Current Visit: Yes Status: Resolved (4) Hydroureteronephrosis Current Visit: Yes Status: Acute (5) Urethral stricture Current Visit: Yes Status: Acute (6) HLD (hyperlipidemia) Current Visit: Yes Status: Acute DVT Prophylaxis: Continue subcutaneous heparin - Summary of Assessment and Plan Summary of Assessment and Plan: Acute appendicitis with perforation: Status post ileocecectomy and ndyr-ul-jqin anastomosis postop day 10. Patient tolerating oral diet. Having bowel movements. Plan to discharge to skilled rehabilitation tomorrow. He will be discharged on oral antibiotics to complete 14 day treatment course Urethral stricture: Status post cystoscopy, dilation of urethral stricture and suprapubic cystostomy postop day 10. End-stage renal disease: Dialyze today.. - Time Spent with Patient Total time spent is greater than 50% in coordination of care (as documented) at patient's floor/unit and/or counseling patient: Internal Medicine: Result - Labs CBC & Chem 7: 03/06/19 02:33 03/06/19 02:33 Labs: Short CBC 03/06/19 Range/Units 02:33 WBC 13.9 H (4.3-11.1) K/mcL Hgb 9.4 L (12.9-16.9) g/dL Hct 28.8 L (37.5-50.1) % Plt Count 370 (140-400) K/mcL [facility] 03/06/19 02:33 Sodium 137 Potassium 3.6 Chloride 96 L Carbon Dioxide 29 BUN 44 H Creatinine 8.05 H Glucose 102 Calcium 10.4 H - ABG Interpretation ABG results: PT/INR, D-dimer PT 12.8 Seconds (9.4-12.1) H 02/21/19 16:27 - Impressions Impressions KUB X-Ray 03/06/19 07:13 IMPRESSION: 1. Multiple gas-filled dilated loops of small bowel with gas and stool in the colon. Findings are suggestive of an ileus. D/ / Harsha Ochoa MD / Harsha Ochoa MD Interpreting Provider: Harsha Ochoa MD Consult Discharge Plan - Plan Instructions: Colectomy (DC) Additional Instructions: S/P Iliocecectomy General Surgical Discharge Instructions 1. No pushing, pulling, or lifting greater than 15 lbs for 6 weeks. 2. You may shower beginning today, but no tub baths, soaking, or swimming for 2 weeks. 3. You may resume driving when you are off narcotics and are safe to react in a car and released to do so by rehab. 4. Take the as needed Percocet. Take narcotics as directed. Do not take more narcotics then directed and do not share your narcotics with any other person. Do not drink alcohol while on narcotics. 5. Take stool softeners (Colace) or a water based laxative (Miralax) while taking narcotics. You may hold for loose stools. 6. Report any fevers greater than 100.5F, increase abdominal discomfort, drainage that looks like pus, increased redness or pain at the surgical site, or any vomiting. 7. Report any pain in the calves, shortness of breath, or rapid heartbeat. 8. Follow-up in the office as directed. 9. If you were prescribed antibiotics, do not stop them without talking to your provider. Referrals: Cleopatra Rivas, THERAPE[employer]IC SALES SPECIALIST [Advanced Practice Nurse] - 03/17/19 1:45 pm NONE,PCP [Primary Care Provider] - (1) Acute appendicitis Qualifiers: Acute appendicitis type: with localized peritonitis Appendicitis gangrene presence: without gangrene Appendicitis perforation presence: with perforation Appendicitis abscess presence: with abscess Qualified Code(s): K35.33 - Acute appendicitis with perforation and localized peritonitis, with abscess (3) Sepsis Qualifiers: Sepsis type: Escherichia coli Qualified Code(s): A41.51 - Sepsis due to Escherichia coli [E. coli] (5) Urethral stricture Qualifiers: Urethral stricture sex-location: male urethra-bulbous Qualified Code(s): N35.812 - Other urethral bulbous stricture, male
[2019-03-06] MEDS: Fluconazole 200 MG/100 ML 200 MG/100 ML BAG IVPB SCH (17:46)
--- NOTE | 2019-03-06 19:54 | Nephrology Progress Note ---
Date of Encounter: 03/06/19 Time of Encounter: 09:25 - Assessment and Plan (1) ESRD (end stage renal disease) Current Visit: Yes Status: Chronic ESRD on hemodialysis every Saturday/Saturday/Saturday. The patient will need hemodialysis today (Saturday). I reviewed the handoff from my colleague Dr. Graves, as well as the patient's labs, vital signs, progress notes, medication list and imaging. He will next be due for dialysis on Saturday, and I will be available in the meantime if needed. Please feel free to page her contact me. (2) Hydroureteronephrosis Current Visit: Yes Status: Acute As per urology (3) Bladder outlet obstruction Current Visit: Yes Status: Acute As per urology Subjective Principal diagnosis: ESRD Interval history: The patient was seen and examined while on hemodialysis. He did not affirm cramping with dialysis, or nausea, vomiting, or diarrhea. Objective - Vital Signs Vital signs: Vital Signs Temp Pulse Resp BP Pulse Ox 03/06/19 19:15 98.9 F 106 15 103/64 94 03/06/19 14:13 98.3 F 92 18 103/66 94 03/06/19 12:18 98 F 18 115/57 03/06/19 12:00 101/65 03/06/19 11:45 96/58 03/06/19 11:30 104/67 03/06/19 11:15 104/64 03/06/19 11:00 114/65 03/06/19 10:45 111/71 03/06/19 10:30 116/64 03/06/19 10:15 132/72 03/06/19 10:00 125/72 03/06/19 09:45 126/56 03/06/19 09:30 123/68 03/06/19 09:15 121/67 03/06/19 09:00 97.8 F 18 136/69 03/06/19 07:56 98.4 F 83 18 134/80 96 03/06/19 06:23 94 03/05/19 22:27 98.9 F 103 18 119/76 94 03/05/19 20:10 99.2 F Intake and Output 03/06/19 03/06/19 03/06/19 07:59 15:59 23:59 Intake Total 790 / 1950 1060 / 1950 100 / 1950 Output Total 350 / 2950 2600 / 2950 Balance 440 / -1000 -1540 / -1000 100 / -1000 Intake: IV Fluids 150 / 250 100 / 250 Diflucan Premix 200 MG/100 ML 50 / 50 100 mg In 50 ml @ 50 mls/hr IVPB SuTuThSa@1800 [facility] Rx#: [id number] Zosyn 3.375 GM In 0.9 % Sodium 100 / 200 100 / 200 Chloride (Mini-Bag +) 100 ML @ 25 mls/hr IVPB Q12HR [facility] Rx#: [id number] Oral 640 / 1100 460 / 1100 Intake, Rinseback and Flushes 600 / 600 Output: Total Dialysis (HD) Output 2600 / 2600 Catheter 350 / 350 Other: Meal Lunch Percent of Meal Consumed 100% Hemodialysis Net Fluid Removed 2000 (mL) - General Appearance General appearance: Present: well-developed, appears started age, cachectic EENT: Present: ATNC, mucous membranes moist Neck: Present: supple Cardiology: Present: no edema Dialysis Vascular Access: Arteriovenous Fistula (Right mid arm AVF) thrill: Yes bruit: Yes Gastrointestinal: Present: normoactive bowel sounds, no guarding Neurologic: Present: no focal deficit, no asterixis Psychiatric: Present: mood/affect appropriate, cooperative - Lab 03/06/19 02:33 03/06/19 02:33 Consult Discharge Plan - Plan Instructions: Colectomy (DC) Additional Instructions: S/P Iliocecectomy General Surgical Discharge Instructions 1. No pushing, pulling, or lifting greater than 15 lbs for 6 weeks. 2. You may shower beginning today, but no tub baths, soaking, or swimming for 2 weeks. 3. You may resume driving when you are off narcotics and are safe to react in a car and released to do so by rehab. 4. Take the as needed Percocet. Take narcotics as directed. Do not take more narcotics then directed and do not share your narcotics with any other person. Do not drink alcohol while on narcotics. 5. Take stool softeners (Colace) or a water based laxative (Miralax) while taking narcotics. You may hold for loose stools. 6. Report any fevers greater than 100.5F, increase abdominal discomfort, drainage that looks like pus, increased redness or pain at the surgical site, or any vomiting. 7. Report any pain in the calves, shortness of breath, or rapid heartbeat. 8. Follow-up in the office as directed. 9. If you were prescribed antibiotics, do not stop them without talking to your provider. Referrals: Cleopatra Rivas CNP [Advanced Practice Nurse] - 03/17/19 1:45 pm NONE,PCP [Primary Care Provider] -
[2019-03-07] MEDS: Piperacillin/Tazobactam 3.375 GM in 0.9 % Sodium Chloride Mini Bag 100 ML IVPB SCH (06:05)
[2019-03-07] MEDS: *HR* Heparin 5,000 UNIT/ML VIAL SQ SCH (06:06)
[2019-03-07 10:12] LABS: Calcium 11.1 mg/dL (8.6-10.3); Potassium 3.5 mEq/L (3.5-5.1)
[2019-03-07 10:33] LABS: Hematocrit 31.4 % (37.5-50.1); Mean Corpuscular HGB Conc 31.8 g/dL (31.6-35.5); Mean Corpuscular Hemoglobin 29.1 pg (28.0-33.3); Mean Corpuscular Volume 91.3 fL (83.0-100.0); Mean Platelet Volume 10.4 fL (9.4-12.4); Platelet Count 437 K/mcL (140-400); Red Blood Count 3.44 M/mcL (4.19-5.50); Red Cell Distribution Width 13.6 % (11.5-14.5)
[2019-03-07] MEDS: Bisacodyl 10 MG RECTAL SUPPOSITORY RC SCH (10:51)
[2019-03-07 11:07] VITALS: BP 117/74
--- NOTE | 2019-03-07 11:37 | Discharge Summary ---
- NOTES TO OUTPATIENT PROVIDER Notes to Outpatient Provider: Patient with history of stage renal disease on hemodialysis and hyperlipidemia who presented to the ER with complaints of periumbilical abdominal pain and right lower quadrant abdominal pain. CT of the abdomen showed acute appendicitis with perforation. Surgery was consulted and they initially recommended that he be managed medically with repeat CT in 48 hours. Patient received IV antibiotics. Patient also had the bladder distention related to chronic bladder outlet obstruction. Urology was consulted and they placed a suprapubic catheter. Patient then underwent surgery on 02/24 with ileocecectomy and [id number] anastomosis and he also underwent Cystoscopy, dilation urethral stricture, suprapubic cystostomy at the same time. Since then patient has had prolonged ileus and slow return of bowel function. His been receiving IV antibiotics per surgery and infectious disease recommendations along with Diflucan. At this time is tolerating oral diet well. He has had return of bowel function and has been cleared for discharge from a surgical standpoint. Patient will be discharged to skilled rehabilitation today. He will complete antibiotic course per infectious disease recommendations and will follow up with surgery and urology as outpatient. He will continue to receive hemodialysis per his usual schedule. Orders not resulted at time of discharge: Pending orders 03/08/19 04:00 Basic Metabolic Panel AM 0400 CBC no Diff [Complete Blood Count w/o Diff] [HEME] AM 0400 03/09/19 04:00 Basic Metabolic Panel AM 0400 CBC no Diff [Complete Blood Count w/o Diff] [HEME] AM 04003/10/19 04:00 Basic Metabolic Panel AM 0400 CBC no Diff [Complete Blood Count w/o Diff] [HEME] AM 0400 03/11/19 04:00 Basic Metabolic Panel AM 0400 CBC no Diff [Complete Blood Count w/o Diff] [HEME] AM 04003/12/19 04:00 Basic Metabolic Panel AM 0400 CBC no Diff [Complete Blood Count w/o Diff] [HEME] AM 0400 03/13/19 04:00 Basic Metabolic Panel AM 0400 CBC no Diff [Complete Blood Count w/o Diff] [HEME] AM 0400 Date of Encounter: 03/07/19 Time of Encounter: 11:26 - Discharge Diagnosis (1) Acute appendicitis Priority: Primary Status: Acute Qualifiers: Acute appendicitis type: with localized peritonitis Appendicitis gangrene presence: without gangrene Appendicitis perforation presence: with perforation Appendicitis abscess presence: with abscess Qualified Code(s): K35.33 - Acute appendicitis with perforation and localized peritonitis, with abscess (2) ESRD (end stage renal disease) Priority: Secondary Status: Chronic (3) Sepsis Priority: Secondary Status: Resolved Qualifiers: Sepsis type: sepsis due to unspecified organism Qualified Code(s): A41.9 - Sepsis, unspecified organism (4) Hydroureteronephrosis Priority: Secondary Status: Acute (5) Urethral stricture Priority: Secondary Status: Acute Qualifiers: Urethral stricture sex-location: male urethra-bulbous Qualified Code(s): N35.812 - Other urethral bulbous stricture, male (6) HLD (hyperlipidemia) Priority: Secondary Status: Acute Qualifiers: Hyperlipidemia type: mixed hyperlipidemia Qualified Code(s): E78.2 - Mixed hyperlipidemia Hospital course: Mr. Mckeon is a 68 year old male with history of stage renal disease on hemodialysis and hyperlipidemia who presented to the ER with complaints of periumbilical abdominal pain and right lower quadrant abdominal pain. CT of the abdomen showed acute appendicitis with perforation. Surgery was consulted and they initially recommended that he be managed medically with repeat CT in 48 hours. Patient received IV antibiotics. Patient also had the bladder distention related to chronic bladder outlet obstruction. Urology was consulted and they placed a suprapubic catheter. Patient then underwent surgery on 02/24 with ileocecectomy and [id number] anastomosis and he also underwent Cystoscopy, dilation urethral stricture, suprapubic cystostomy at the same time. Since then patient has had prolonged ileus and slow return of bowel function. His been receiving IV antibiotics per surgery and infectious disease recommendations along with Diflucan. At this time is tolerating oral diet well. He has had return of bowel function and has been cleared for discharge from a surgical standpoint. Patient will be discharged to skilled rehabilitation today. He will complete Diflucan course per infectious disease recommendations and will follow up with surgery and urology as outpatient. He has already completed 14 days of IV antibiotic therapy. His WBC count is elevated today but this is likely reactive. Patient has not had any worsening symptoms or fever or chills to suggest acute infection. He will continue to receive hemodialysis per his usual schedule. Discharge discussed with: patient, case management - Time Spent with Patient Total time spent providing and/or coordinating discharge services: Time spent: Greater than 30 minutes (50 min) - Discharge Medications Prescriptions: New Docusate [Colace] 100 mg PO BID #0 capsule Fluconazole [Diflucan] 200 mg PO MOWEFR #3 tab Fluconazole [Diflucan] 100 mg PO TUTHSA #3 tablet OxyCODONE/APAP 5/325 [Percocet 5/325 MG] 1 each PO Q6HR PRN 5 Days #14 tablet PRN Reason: Moderate Pain Lactobacillus Acidophilus [Acidophilus] 1 each PO BID #30 tablet Continued Simvastatin 20 mg PO HS Sodium Bicarbonate 1,300 mg PO BIDWM Sevelamer [Renvela] 800 mg PO TID Ergocalciferol (VITAMIN D2) [Vitamin D2] 1 cap PO QWEEK Sensipar PO MOWEFR Home Medications: Simvastatin 20 mg PO HS 02/21/19 [History] Sodium Bicarbonate 1,300 mg PO BIDWM 02/21/19 [History] Ergocalciferol (VITAMIN D2) [Vitamin D2] 1 cap PO QWEEK 02/23/19 [History] Sensipar PO MOWEFR 02/23/19 [History] Sevelamer [Renvela] 800 mg PO TID 02/23/19 [History] Docusate [Colace] 100 mg PO BID #0 capsule 03/07/19 [Rx] Fluconazole [Diflucan] 100 mg PO TUTHSA #3 tablet 03/07/19 [Rx] Fluconazole [Diflucan] 200 mg PO MOWEFR #3 tab 03/07/19 [Rx] Lactobacillus Acidophilus [Acidophilus] 1 each PO BID #30 tablet 03/07/19 [Rx] OxyCODONE/APAP 5/325 [Percocet 5/325 MG] 1 each PO Q6HR PRN 5 Days #14 tablet 03/07/19 [Rx] Allergies/Adverse Reactions: Allergy/AdvReac Type Severity Reaction Status Date / Time No Known Allergies Allergy Verified 02/21/19 18:30 Date of admission: 02/22/19 11:48 Primary care physician: PCP NONE Consults: 02/21/19 18:35 Consult to Surgery [CONS] Stat Consulting Provider: Acute Care Surgery Reason for Consult: appendicitis Call Completed: Yes 02/21/19 19:29 Consult to Nephrology [CONS] Routine Consulting Provider: [facility] [place]/ORIMI/IVONNE/WALT Reason for Consult: HD pt MWF Call Completed: No 02/21/19 21:04 Consult to Occupational Therapy [CONS] Routine Comment: Evaluate, develop and implement POC Reason for Consult: weakness, ptot eval Does patient have active BEDREST order?: No Is patient medically & hemodynamically stable?: Yes Patient assessed for mobility or mobilized this visit?: No Consult to Physical Therapy [CONS] Routine Comment: Evaluate, develop and implement POC Reason for Consult: weakness, ptot eval Does patient have active BEDREST order?: No Is patient medically & hemodynamically stable?: Yes Patient assessed for mobility or mobilized this visit?: No 02/22/19 00:36 Consult to Urology [CONS] Routine Consulting Provider: Urology Alexandra Reason for Consult: Bladder distention, urinary retention. Aguilar catheter attempts made, and failed. Call Completed: Yes 02/23/19 07:15 Consult to Dialysis [CONS] QMWF 02/25/19 07:15 Consult to Dialysis [CONS] QMWF 02/25/19 15:27 Consult to Infectious Diseases [CONS] Routine Consulting Provider: Infectious Disease Alexandra Reason for Consult: acute perforated appendix; recommendation for antibiotic choice and duration Call Completed: No 02/27/19 07:15 Consult to Dialysis [CONS] QMWF 02/27/19 16:01 Consult to Invasive Line Access Team [CONS] Routine Reason for Consult: picc line placement Line Type: PICC 03/02/19 08:30 Consult to Dialysis [CONS] ONCE 03/02/19 09:14 Consult to Case Management [CONS] Routine Comment: DC planning 03/03/19 07:58 Consult to Nutrition [CONS] Stat Comment: prolonged ileus tolerating only clear liquids Consulting Provider: NUTRITION Reason for Dietary Consult: PO Supplementation 03/04/19 08:15 Consult to Dialysis [CONS] ONCE 03/06/19 07:45 Consult to Dialysis [CONS] ONCE Discharging clinician: Nestor Denis Anticipated date of discharge: 03/07/19 - Constitutional Vitals: Temp Pulse Resp BP Pulse Ox 97.8 F 98 17 117/74 98 03/07/19 10:54 03/07/19 10:54 03/07/19 10:54 03/07/19 10:54 03/07/19 10:54 General appearance: Present: cooperative, A&O X 3, pleasant, no acute distress, answers questions appropriately Exam: General: Patient is alert, no acute distress, oriented x 3 ENT: Mucous membranes moist Respiratory: Good respiratory effort. Normal breath sounds. No wheezing or crackles. Cardiovascular: Regular rate and rhythm. s1 and s2 normal No clicks, rubs, gallops, or murmurs. No pedal edema Abdomen: Abdomen is soft, mild tenderness at surgical site. Bowel sounds are present Musculoskeletal: Spontaneously moving all extremities Skin: warm, dry, intact. Neuro: Alert oriented x 3 normal cranial nerves, no focal deficits - Patient Status Disposition: Transfer SNF Condition: Good Functional capacity at discharge: uses cane/walker Overall status at discharge: patient is progressing back to baseline - Discharge Instructions Instructions: Colectomy (DC) Follow Up With: Cleopatra Rivas CNP [Advanced Practice Nurse] - 03/17/19 1:45 pm NONE,PCP [Primary Care Provider] - Johnny Metzger [Partnered Physician] - (in 1 week) Additional Instructions: S/P Iliocecectomy General Surgical Discharge Instructions 1. No pushing, pulling, or lifting greater than 15 lbs for 6 weeks. 2. You may shower beginning today, but no tub baths, soaking, or swimming for 2 weeks. 3. You may resume driving when you are off narcotics and are safe to react in a car and released to do so by rehab. 4. Take the as needed Percocet. Take narcotics as directed. Do not take more narcotics then directed and do not share your narcotics with any other person. Do not drink alcohol while on narcotics. 5. Take stool softeners (Colace) or a water based laxative (Miralax) while taking narcotics. You may hold for loose stools. 6. Report any fevers greater than 100.5F, increase abdominal discomfort, drainage that looks like pus, increased redness or pain at the surgical site, or any vomiting. 7. Report any pain in the calves, shortness of breath, or rapid heartbeat. 8. Follow-up in the office as directed. 9. If you were prescribed antibiotics, do not stop them without talking to your provider. Patient being discharged with suprapubic and Aguilar catheter in place. He will follow up with urology after discharge. - Diet and Activity Activity: as per physical therapy Diet: low fat, low cholesterol, low salt diet
--- NOTE | 2019-03-07 12:03 | Physician Discharge Referral ---
ExtendedCare Referral Info Transfer To: Signature Provider in Charge after Transfer: PCP Institutional Level of Care: Skilled - Diagnosis (1) Acute appendicitis Priority: Primary Status: Acute (2) ESRD (end stage renal disease) Priority: Secondary Status: Chronic (3) Sepsis Priority: Secondary Status: Resolved (4) Hydroureteronephrosis Priority: Secondary Status: Acute (5) Urethral stricture Priority: Secondary Status: Acute (6) HLD (hyperlipidemia) Priority: Secondary Status: Acute Prognosis: Fair Aware of Diagnosis: Patient Aware of Prognosis: Patient - Transfer Medications Prescriptions: Lactobacillus Acidophilus [Acidophilus] 1 each PO BID #30 tablet Fluconazole [Diflucan] 200 mg PO MOWEFR #3 tab Fluconazole [Diflucan] 100 mg PO TUTHSA #3 tablet OxyCODONE/APAP 5/325 [Percocet 5/325 MG] 1 each PO Q6HR PRN 5 Days #14 tablet PRN Reason: Moderate Pain Home Medications: Simvastatin 20 mg PO HS 02/21/19 [History] Sodium Bicarbonate 1,300 mg PO BIDWM 02/21/19 [History] Ergocalciferol (VITAMIN D2) [Vitamin D2] 1 cap PO QWEEK 02/23/19 [History] Sensipar PO MOWEFR 02/23/19 [History] Sevelamer [Renvela] 800 mg PO TID 02/23/19 [History] Docusate [Colace] 100 mg PO BID #0 capsule 03/07/19 [Rx] Fluconazole [Diflucan] 100 mg PO TUTHSA #3 tablet 03/07/19 [Rx] Fluconazole [Diflucan] 200 mg PO MOWEFR #3 tab 03/07/19 [Rx] Lactobacillus Acidophilus [Acidophilus] 1 each PO BID #30 tablet 03/07/19 [Rx] OxyCODONE/APAP 5/325 [Percocet 5/325 MG] 1 each PO Q6HR PRN 5 Days #14 tablet 03/07/19 [Rx] Allergies/Adverse Reactions: Allergy/AdvReac Type Severity Reaction Status Date / Time No Known Allergies Allergy Verified 02/21/19 18:30 - Respiratory Orders Smoking Cessation: Smoking cessation has been advised. For more information, call the [facility] Tobacco Quit Line at 5-463-BXZX-NOW. - Ancillary Orders May consult with Dentist, Inspector [employer], Runner Out PRN - Advance Directives Code Status: Full Code - Mobility Orders Ambulate (per PT) - Rehabiliation Orders Rehab Potential: Good Rehab Orders: Evaluation for Physical Therapy, Evaluation for Occupational Therapy - Diet Orders Cardiac CERTIFICATION: I certify that the transfer of the above named patient to an Extended Care Facility is necessary for the continuing treatment of the diagnosis listed. The above information is true and accurate reflection of patient's current condition. Confidential - Redisclosure prohibited without a patient's written consent.
== END 2019-03-07 13:58 | DRG 853 ==
LOC: EMEROOARM 16:09 → 3ANU 16:09 → SUATTDRO 19:38 → 3ANU 20:52 → SUATTDRO 02-22 11:48
PROVIDERS: ADMIT Internal Medicine Nephrology; ATTEND Internal Medicine